=== PATIENT | female | born 1970 | race Caucasian/White ===

== ENCOUNTER 2022-04-07 16:10 | Emergency (ER) | payer MEDICARE ==
[2022-04-07 18:08] VITALS: RESP 18
--- NOTE | 2022-04-07 18:26 | XR ---
EXAMINATION TYPE: XR abdomen 2V DATE OF EXAM: 04/07/2022 6:20 PM CLINICAL HISTORY: Constipation TECHNIQUE: Upright frontal view of the abdomen and 2 supine views of the abdomen. COMPARISON: None. FINDINGS: Scattered gas is seen in non-distended small bowel loops. Gas and fecal material is seen in non-distended colon. Moderate amount of retained stool throughout the colon. There is no visceromega ly, pneumoperitoneum, or abnormal calcification appreciated. The lung bases are clear and the osseous structures are intact. IMPRESSION: 1. Overall nonobstructive bowel gas pattern. 2. Moderate amount of retained stool throughout the colon.
[2022-04-07 18:29] LABS: Appearance,Urine Cloudy (Clear); Bacteria,Urine Rare /hpf; Bilirubin,Urine Negative (Negative); Blood,Urine Negative (Negative); Color,Urine Yellow; Glucose,Urine (UA) Negative (Negative); Ketones,Urine Negative (Negative); Leukocyte Esterase,Urine Trace (Negative); Mucus,Urine Rare /hpf; Nitrite,Urine Negative (Negative); PH, Urine 5.5 (5.0-8.0); Protein,Urine Trace (Negative); RBC,Urine 5 /hpf (0-5); Specific Gravity,Urine 1.014 (1.001-1.035); Squamous Epithelial Cell,Urine 11 /hpf (0-4); Urobilinogen,Urine <2.0 mg/dL (<2.0); WBC,Urine 4 /hpf (0-5)
[2022-04-07] MEDS ORDERED: DOCUSATE 100 MG CAP PO STA (18:58)
[2022-04-07] MEDS ORDERED: MAGNESIUM CITRATE 296 ML BOTTLE PO ONE (18:58)
--- NOTE | 2022-04-07 22:18 | ED ---
Abdominal Pain HPI - General Chief Complaint: Abdominal Pain Stated Complaint: GI issue/Abd Pain Time Seen by Provider: 04/07/22 18:41 Source: patient Mode of arrival: ambulatory Limitations: no limitations - History of Present Illness Initial Comments: This 52-year-old female presents with a complaint of constipation. She states that she feels as though her abdomen is bloated. She has occasional twinges of pain but none currently. She states that she is only passed "small belinda". She does relate a history of constipation as well. She denies any nausea, vomiting, or known definitive fevers or chills. She has tried multiple medications at home including a fleets enema, a Fleet suppository, an unknown laxative, and some unknown liquid. She states that she has not had a bowel movement that was normal for approximately 10 days. Other complaints or modifying factors. - Related Data Home Medications Medication Instructions Recorded Confirmed Albuterol Sulfate [Ventolin HFA] 2 puff INHALATION RT-Q6H PRN 04/07/22 04/07/22 Budesonide/Formoterol Fumarate 2 puff INHALATION RT-BID PRN 04/07/22 04/07/22 [Symbicort 160-4.5 Mcg Inhaler] Furosemide [Lasix] 40 mg PO DAILY PRN 04/07/22 04/07/22 HYDROcodone/APAP 5-325MG [Lynn 1 tab PO TID 04/07/22 04/07/22 5-325] Metoprolol Tartrate [Lopressor] 12.5 mg PO BID 04/07/22 04/07/22 Potassium Chloride ER [K-Dur 10] 10 meq PO DAILY PRN 04/07/22 04/07/22 QUEtiapine [SEROquel] 300 mg PO HS 04/07/22 04/07/22 Zolpidem Tartrate [Ambien] 5 mg PO HS PRN 04/07/22 04/07/22 diazePAM [Valium] 5 mg PO BID PRN 04/07/22 04/07/22 Allergies Allergy/AdvReac Type Severity Reaction Status Date / Time No Known Allergies Allergy Verified 04/07/22 22:07 Review of Systems ROS Statement: Those systems with pertinent positive or pertinent negative responses have been documented in the HPI. ROS Other: All systems not noted in ROS Statement are negative. Past Medical History Past Medical History: Hypertension Additional Past Medical History / Comment(s): back pain History of Any Multi-Drug Resistant Organisms: None Reported Past Psychological History: Anxiety, Bipolar Smoking Status: Current every day smoker Past Alcohol Use History: Occasional Past Drug Use History: None Reported General Exam - General Exam Comments Initial Comments: GENERAL: The patient is well nourished and well hydrated. VITAL SIGNS: Heart rate, blood pressure, respiratory rate reviewed as recorded in nurse's notes. EYES: Pupils are round and reactive. Extraocular movements are intact. No conjunctival / lid redness or swelling. ENT: No external evidence of injury, swelling, or ecchymosis. Airway is patent. Throat is clear. NECK: Nontender. No swelling or evidence of injury. No subcutaneous emphysema. Trachea is midline. No thyroid mass. HEART: Regular rate and rhythm. Good peripheral pulses. LUNGS/CHEST: Breath sounds clear and equal bilaterally. No rales, rhonchi, or wheezes. No ecchymosis, subcutaneous emphysema, or tenderness. ABDOMEN: Abdomen soft without tenderness. No palpable masses or organomegaly. No peritoneal signs. No abdominal wall swelling or ecchymosis. Possible mild distention noted. EXTREMITIES: No extremity tenderness. Normal muscle tone and function. No thoracolumbar tenderness. NEUROLOGIC: Sensation is grossly intact. Cranial nerve exam reveals face is symmetrical, tongue is midline, speech is clear. SKIN: No abrasions or ecchymosis is noted. No induration or masses noted. PSYCHIATRIC: Alert and oriented. Appropriate behavior and judgment. Limitations: no limitations Course Vital Signs 04/07/22 04/07/22 18:04 20:23 Temperature 98 F Pulse Rate 103 H 98 Respiratory 18 18 Rate Blood Pressure 141/61 145/83 O2 Sat by Pulse 95 97 Oximetry Medical Decision Making - Medical Decision Making The patient was seen and examined. An x-ray was taken of the abdomen and this does show some moderate constipation but no other acute process. She receives a milk of molasses enema, magnesium citrate, and Colace. She states that she did pass a small bowel movement. She states that she still does feel constipated. She is offered another enema versus discharge and should is okay with discharge. It is felt as though she would benefit from utilizing Metamucil and MiraLAX at home. She is instructed that she may take the MiraLAX up to 4 times per day and this likely will help with her bowel movement. It is felt as though she is stable for discharge. GI follow-up will also be given. Return parameters discussed. - Lab Data Lab Results 04/07/22 Range/Units 18:17 Urine Color Yellow Urine Appearance Cloudy H (Clear) Urine pH 5.5 (5.0-8.0) Ur Specific [place] 1.014 (1.001-1.035) Urine Protein Trace H (Negative) Urine Glucose (UA) Negative (Negative) Urine Ketones Negative (Negative) Urine Blood Negative (Negative) Urine Nitrite Negative (Negative) Urine Bilirubin Negative (Negative) Urine Urobilinogen <2.0 (<2.0) mg/dL Ur Leukocyte Esterase Trace H (Negative) Urine RBC 5 (0-5) /hpf Urine WBC 4 (0-5) /hpf Ur Squamous Epith Cells 11 H (0-4) /hpf Urine Bacteria Rare H (None) /hpf Urine Mucus Rare H (None) /hpf Disposition Clinical Impression: Constipation Disposition: HOME SELF-CARE Condition: Good Instructions (If sedation given, give patient instructions): Constipation (ED) Additional Instructions: Please use MiraLAX up to 4 times per day as well as Metamucil for constipation. Is patient prescribed a controlled substance at d/c from ED?: No Referrals: Jaime Gar MD [Primary Care Provider] - 1-2 days Sammie Palmer MD [STAFF PHYSICIAN] - As Soon As Possible Time of Disposition: 22:24
[2022-04-07 22:38] VITALS: BP 118/69; PULSE 86; TEMP 97.8
== END 2022-04-07 22:52 | disposition home or self-care (01) ==
LOC: EC 16:10
DX: K59.00 Constipation, unspecified (principal); I10 Essential (primary) hypertension; F31.9 Bipolar disorder, unspecified; F41.9 Anxiety disorder, unspecified; F17.200 Nicotine dependence, unspecified, uncomplicated; Z79.899 Other long term (current) drug therapy
CPT/HCPCS: 74019; 81001; 99284

== ENCOUNTER 2023-12-29 06:30 | Day surgery (SDC) | payer MEDICARE ==
[~2023-12-29 06:30] MED LIST: LIDOCAINE 1% (10MG/ML) FOR IV START INTRADERMA PRN
[2023-12-29] MEDS: LACTATED RINGERS 1,000 ML IV SCH (07:05)
[2023-12-29] MEDS: MIDAZOLAM 2 MG/2 ML VIAL IVP ONE (07:10)
[2023-12-29] MEDS ORDERED: PROPOFOL 10 MG/ML 20 ML VIAL IV ONE (07:20)
[2023-12-29] MEDS ORDERED: fentaNYL (PF) 50 MCG/ML 2 ML AMP ONE (07:20)
[2023-12-29] MEDS ORDERED: LIDOCAINE 1% INJ 10MG/ML (20 ML MDV) ONE (07:20)
[2023-12-29 07:22] VITALS: TEMP 97.5
--- NOTE | 2023-12-29 07:43 | P.PCN ---
Date of Procedure: 12/29/23 Procedure(s) Performed: Brief history: Patient is a pleasant 53-year-old white female scheduled for an elective upper endoscopy as well as colonoscopy as a part of evaluation of GERD/left lower quadrant abdominal pain with alternating diarrhea and constipation for the last 1 year duration Procedure performed: Esophagogastroduodenoscopy with biopsy Colonoscopy with biopsy Preoperative diagnosis: GERD Left lower quadrant abdominal pain with alternating diarrhea and constipation of 1 year duration Anesthesia: [facility] [place] Procedure: After informed consent was obtained from the patient was brought into the endoscopy unit and IV sedation was administered by anesthesia under continuous monitoring. Initially upper endoscopy was done. The Olympus GF 160 video endoscope was inserted inserted into the mouth and esophagus intubated without any difficulty and was gradually advanced into the stomach and duodenum and carefully examined. The bulb and second part of the duodenum appeared normal. Biopsies were done from the duodenum to rule out celiac disease. The scope was then withdrawn into the stomach adequately insufflated with air and upon careful examination the antrum had mild gastritis and biopsies were done from this area. Mucosa of the body, cardia and fundus appeared normal. The scope was then withdrawn into the esophagus. The GE junction was located at 40 cm to the incisors. Small hiatal hernia noted. It appeared regular with 2 superficial erosions consistent with LA grade B reflux esophagitis. Rest of the esophagus appeared normal. Patient tolerated the procedure well. At this time the patient continued to remain sedation. Initial digital rectal examination was normal. Olympus CF 160 video colonoscope was then inserted into the rectum and gradually advanced to the cecum without any difficulty. Careful examination was performed as the scope was gradually being withdrawn. The prep was excellent. The cecum, ascending colon, transverse colon, descending colon, sigmoid colon and rectum appeared normal. random biopsies were done from ascending and descending colon to rule out microscopic/collagenous colitis Retroflexion was performed in the rectum and no lesions were noted. Patient tolerated the procedure well. Impression: 1. Upper endoscopy revealed mild antral gastritis, small hiatal hernia and LA grade B esophagitis 2. Colonoscopy was within normal limits with no evidence of colorectal neoplasia Recommendations: Findings of this examination were discussed with the patient as well saba family. She was advised to follow with the biopsy results. Recommend repeat screening colonoscopy in 10 years.
[2023-12-29 08:32] VITALS: BP 134/84; PULSE 83; RESP 15
== END 2023-12-29 08:27 | disposition home or self-care (01) ==
LOC: ORWHC2ENDO 06:30
PROVIDERS: ATTEND Internal Medicine Gastroenterology
DX: D72.820 Lymphocytosis (symptomatic) (principal); K29.50 Unspecified chronic gastritis without bleeding; K44.9 Diaphragmatic hernia without obstruction or gangrene; K21.00 Gastro-esophageal reflux disease with esophagitis, without bleeding; K31.89 Other diseases of stomach and duodenum; I10 Essential (primary) hypertension; J44.9 Chronic obstructive pulmonary disease, unspecified; F17.200 Nicotine dependence, unspecified, uncomplicated; F41.9 Anxiety disorder, unspecified; M79.7 Fibromyalgia; Z98.890 Other specified postprocedural states; Z79.899 Other long term (current) drug therapy
CPT/HCPCS: 88305; 45380; 43239; J2250; J2001; J3010; J2704

== ENCOUNTER 2024-07-17 21:32 | Inpatient (IN) | payer MEDICARE, OTHER ==
--- NOTE | 2024-07-17 22:31 | ED ---
SOB HPI - General Chief Complaint: Shortness of Breath Stated Complaint: Difficulty Breathing Time Seen by Provider: 07/17/24 21:39 Source: patient, RN notes reviewed, old records reviewed Mode of arrival: ambulatory Limitations: no limitations - History of Present Illness Initial Comments: This is a 54-year-old female presenting with multiple complaints today. She states she has a fever and feels unwell, she has burning with urination with cough and congestion she describes as bronchitis but worsening shortness of breath. History of COPD. No known recent sick contacts or travel history no recent hospitalizations MD Complaint: shortness of breath, cough, anxiety -: days(s) Severity: moderate Severity scale (1-10): 6 Quality: throbbing, sharp Improves With: nothing Known History Of: COPD, asthma Context: recent URI, recent illness, other (Believes she has urinary tract infection) Associated Symptoms: fever, cough, sputum production Treatments Prior to Arrival: none - Related Data Home Medications Medication Instructions Recorded Confirmed QUEtiapine [SEROquel] 300 mg PO HS 04/07/22 07/18/24 Zolpidem Tartrate [Ambien] 5 mg PO HS 04/07/22 07/18/24 diazePAM [Valium] 10 mg PO BID PRN 04/07/22 07/18/24 HYDROcodone/APAP 7.5-325MG [[place] 1 tab PO Q8H PRN 12/25/23 07/18/24 7.5-325] Omeprazole [PriLOSEC] 20 mg PO AC-LUNCH 07/18/24 07/18/24 Previous Rx's Medication Instructions Recorded Albuterol Inhaler [Ventolin Hfa 2 puff INHALATION RT-QID #1 each 07/30/24 Inhaler] Aspirin 81 mg PO DAILY #30 tab 07/30/24 Atorvastatin [Lipitor] 40 mg PO HS #30 tab 07/30/24 predniSONE 20 mg PO DAILY #10 tab 07/30/24 Allergies Allergy/AdvReac Type Severity Reaction Status Date / Time No Known Allergies Allergy Verified 07/18/24 06:58 Review of Systems ROS Statement: Those systems with pertinent positive or pertinent negative responses have been documented in the HPI. ROS Other: All systems not noted in ROS Statement are negative. Past Medical History Past Medical History: COPD, Fibromyalgia, Hypertension Additional Past Medical History / Comment(s): back pain. INCISIONAL HERNIA x2. RT KNEE INJURY-WEARS A BRACE History of Any Multi-Drug Resistant Organisms: None Reported Past Surgical History: Breast Surgery, Hernia Repair, Hysterectomy, Tonsillectomy Additional Past Surgical History / Comment(s): BILAT BREAST IMPLANTS incisional hernia repair with fatty mass from abdomen and leg Past Anesthesia/Blood Transfusion Reactions: Family History of Problems w/ Anesthesia Additional Past Anesthesia/Blood Transfusion Reaction / Comment(s): MOTHER AND BROTHER HAD HARD TIME BREATHING POST SURGERIES Past Psychological History: Anxiety, Bipolar Smoking Status: Current every day smoker Past Alcohol Use History: Occasional Past Drug Use History: None Reported - Past Family History Mother Family Medical History: Cancer General Exam Limitations: no limitations General appearance: alert, anxious, in distress Head exam: Present: atraumatic, normocephalic, normal inspection Eye exam: Present: normal appearance, PERRL, EOMI. Absent: scleral icterus, conjunctival injection, periorbital swelling ENT exam: Present: normal exam, mucous membranes moist Neck exam: Present: normal inspection. Absent: tenderness, meningismus, lymphadenopathy Respiratory exam: Present: respiratory distress, accessory muscle use, decreased breath sounds, prolonged expiratory. Absent: rales, rhonchi, stridor Cardiovascular Exam: Present: normal rhythm, tachycardia, normal heart sounds. Absent: systolic murmur, diastolic murmur, rubs, gallop, clicks GI/Abdominal exam: Present: soft, normal bowel sounds. Absent: distended, tenderness, guarding, rebound, rigid Extremities exam: Present: normal inspection, full ROM, normal capillary refill. Absent: tenderness, pedal edema, joint swelling, calf tenderness Back exam: Present: normal inspection Neurological exam: Present: alert, oriented X3, CN II-XII intact Psychiatric exam: Present: normal affect, normal mood Skin exam: Present: warm, dry, intact, normal color. Absent: rash Course Vital Signs 07/17/24 07/17/24 07/17/24 21:34 22:40 23:22 Temperature 102.4 F H 101.9 F H Pulse Rate 114 H 115 H Respiratory 24 20 22 Rate Blood Pressure 116/73 126/71 O2 Sat by Pulse 92 L 96 Oximetry 07/17/24 07/18/24 07/18/24 23:52 00:01 00:44 Temperature 99.1 F Pulse Rate 106 H 109 H 74 Respiratory 18 18 20 Rate Blood Pressure O2 Sat by Pulse 94 L Oximetry 07/18/24 07/18/24 07/18/24 01:28 01:29 05:11 Temperature 97.2 F L Pulse Rate 101 H 74 Respiratory 18 14 Rate Blood Pressure 119/70 123/79 O2 Sat by Pulse 87 L 96 91 L Oximetry 07/18/24 07/18/24 07/18/24 09:03 10:38 12:30 Temperature 97.4 F L 98.0 F Pulse Rate 68 64 70 Respiratory 18 18 16 Rate Blood Pressure 134/82 143/85 130/84 O2 Sat by Pulse 91 L 96 95 Oximetry 07/18/24 07/18/24 07/18/24 13:10 14:29 16:00 Temperature Pulse Rate 71 71 70 Respiratory 18 18 18 Rate Blood Pressure 130/84 131/89 O2 Sat by Pulse 96 94 L 97 Oximetry 07/18/24 07/18/24 07/18/24 18:00 18:35 20:24 Temperature 97.8 F Pulse Rate 62 56 L 60 Respiratory 18 18 18 Rate Blood Pressure 134/84 134/84 O2 Sat by Pulse 96 97 Oximetry 07/19/24 07/19/24 07/19/24 00:33 02:31 03:13 Temperature Pulse Rate 57 L 65 50 L Respiratory 18 18 18 Rate Blood Pressure 122/72 122/71 122/68 O2 Sat by Pulse 98 97 96 Oximetry - Reevaluation(s) Reevaluation #1: 07/17/24 22:36 Medical records reviewed Reevaluation #2: 07/18/24 01:25 Mild improvement here in the ER Reevaluation #3: 07/18/24 01:25 Patient informed of results and questions answered Reevaluation #4: Was pt. sent in by a medical professional or institution (, PA, TRAVELING CONSTRUCTION SUPERINTENDENT, urgent care, hospital, or group home...) When possible be specific @ -no Did you speak to anyone other than the patient for history (EMS, parent, family, police, friend...)? What history was obtained from this source @ -no Did you review nursing and triage notes (agree or disagree)? Why? @ -agree Are old charts reviewed (outside hosp., previous admission, EMS record, old EKG, old radiological studies, urgent care reports/EKG's, group home records)? Report findings @ -yes Differential Diagnosis (chest pain, altered mental status, abdominal pain women, abdominal pain men, vaginal bleeding, weakness, fever, dyspnea, syncope, headache, dizziness, GI bleed, back pain, seizure, CVA, palpatations, mental hea lth, musculoskeletal)? @ -prior EKG interpreted by me (3pts min.). @ -yes X-rays interpreted by me (1pt min.). @ -yes negative for acute disease CT interpreted by me (1pt min.). @ -no U/S interpreted by me (1pt. min.). @ -no What testing was considered but not performed or refused? (CT, X-rays, U/S, labs)? Why? @ -none What meds were considered but not given or refused? Why? @ -none Did you discuss the management of the patient with other professionals (professionals i.e. , PA, TRAVELING CONSTRUCTION SUPERINTENDENT, lab, RT, psych nurse, addiction social worker, inside solar sales consultant, teacher, aviation tactical readiness officer, correctional case records supervisor)? Give summary @ -no Was smoking cessation discussed for >3mins.? @ -no Was critical care preformed (if so, how long)? @ -yes31 Were there social determinants of health that impacted care today? How? (Homelessness, low income, unemployed, alcoholism, drug addiction, transportation, low edu. Level, literacy, decrease access to med. care, senior living, rehab)? @ -none Was there de-escalation of care discussed even if they declined (Discuss DNR or withdrawal of care, Hospice)? DNR status @ -no What co-morbidities impacted this encounter? (DM, HTN, Smoking, COPD, CAD, Cancer, CVA, ARF, Chemo, Hep., AIDS, mental health diagnosis, sleep apnea, morbid obesity)? @ -none Was patient admitted / discharged? Hospital course, mention meds given and route, prescriptions, significant lab abnormalities, going to OR and other pertinent info. @ - 54 female with severe respiratory distress will admit to the ICU for significant supportive care secondary to respiratory failure Admitted respiratory failure respiratory Undiagnosed new problem with uncertain prognosis? @ -no Drug Therapy requiring intensive monitoring for toxicity (Heparin, Nitro, Insulin, Cardizem)? @ -no Were any procedures done? @ -no Diagnosis/symptom? @ -Respiratory failure COPD and hypoxia Acute, or Chronic, or Acute on Chronic? @ -Acute Uncomplicated (without systemic symptoms) or Complicated (systemic symptoms)? @ -Complicated Side effects of treatment? @ -no Exacerbation, Progression, or Severe Exacerbation? @ -exacerbation Poses a threat to life or bodily function? How? (Chest pain, [place], [place], pneumonia, PE, COPD, DKA, ARF, appy, cholecystitis, CVA, Diverticulitis, Homicidal, Suicidal, threat to staff... and all critical care pts) @ -yes respiratory failure Reevaluation #5: Differential Fever: Pneumonia, viral URI, endocarditis, myocarditis, pericarditis, otitis, sinusitis, peritonsillar Abscess, retropharyngeal Abscess, epiglottitis, peritonitis, appendicitis, Hien cystitis, diverticulitis, hepatitis, colitis, UTI, PID, TOA, pyelonephritis, prostatitis, epididymitis, meningitis, encephalitis, pulmonary embolism, CVA, thyroid storm, pancreatitis, adrenal crisis, cavernous sinus thrombosis, this is not meant to be an all-inclusive list. Differential Dyspnea: Coronary syndrome, arrhythmia, tamponade, asthma, COPD, pulmonary embolism, pneumonia, pneumothorax, pulmonary effusion, anaphylaxis, diabetic ketoacidosis, flailed chest, pulmonary contusion, diaphragmatic rupture, anemia, neuromuscu lar, this is not meant to be an all-inclusive list. - Consultations Consultation #1: spoke w Dr. Gar who agrees to admit this patient Medical Decision Making - Medical Decision Making 54 female with severe respiratory distress will admit to the ICU for significant supportive care secondary to respiratory failure - Lab Data Result diagrams: 07/29/24 05:37 07/29/24 05:33 Lab Results 07/17/24 07/17/24 07/17/24 Range/Units 22:22 22:22 22:22 WBC 6.2 (3.8-10.6) k/uL RBC 3.43 L (3.80-5.40) m/uL Hgb 13.3 (11.4-16.0) gm/dL Hct 38.5 (34.0-46.0) % MCV 112.3 H (80.0-100.0) fL MCH 38.8 H (25.0-35.0) pg MCHC 34.6 (31.0-37.0) g/dL RDW 13.5 (11.5-15.5) % Plt Count 166 (150-450) k/uL MPV 8.7 Neutrophils % 81 % Lymphocytes % 10 % Monocytes % 6 % Eosinophils % 1 % Basophils % 1 % Neutrophils # 5.1 (1.3-7.7) k/uL Lymphocytes # 0.6 L (1.0-4.8) k/uL Monocytes # 0.4 (0-1.0) k/uL Eosinophils # 0.1 (0-0.7) k/uL Basophils # 0.0 (0-0.2) k/uL Manual Slide Review Performed Macrocytosis Marked A PT 10.5 (10.0-12.5) sec INR 0.9 (<1.2) APTT 26.7 (22.0-30.0) sec Sodium 135 L (137-145) mmol/L Potassium 4.0 (3.5-5.1) mmol/L Chloride 104 (98-107) mmol/L Carbon Dioxide 24 (22-30) mmol/L Anion Gap 7 mmol/L BUN 12 (7-17) mg/dL Creatinine 0.70 (0.52-1.04) mg/dL Est GFR (CKD-EPI)AfAm >90 (>60 ml/min/1.73 sqM) Est GFR (CKD-EPI)NonAf >90 (>60 ml/min/1.73 sqM) Glucose 120 H (74-99) mg/dL Plasma Lactic Acid [place] (0.7-2.0) mmol/L Calcium 9.9 (8.4-10.2) mg/dL Magnesium 1.4 L (1.6-2.3) mg/dL Total Bilirubin 0.7 (0.2-1.3) mg/dL AST 121 H (14-36) U/L ALT 51 H (4-34) U/L Alkaline Phosphatase 93 (38-126) U/L Troponin I (0.000-0.034) ng/mL NT-Pro-B Natriuret Pep 734 pg/mL Total Protein 6.7 (6.3-8.2) g/dL Albumin 4.3 (3.5-5.0) g/dL Urine Color Urine Appearance (Clear) Urine pH (5.0-8.0) Ur Specific [place] (1.001-1.035) Urine Protein (Negative) Urine Glucose (UA) (Negative) Urine Ketones (Negative) Urine Blood (Negative) Urine Nitrite (Negative) Urine Bilirubin (Negative) Urine Urobilinogen (<2.0) mg/dL Ur Leukocyte Esterase (Negative) Urine RBC (0-5) /hpf Urine WBC (0-5) /hpf Ur Squamous Epith Cells (0-4) /hpf Urine Bacteria (None) /hpf Urine Mucus (None) /hpf Influenza Type A (PCR) (Not Detectd) Influenza Type B (PCR) (Not Detectd) RSV (PCR) (Not Detectd) SARS-CoV-2 (PCR) (Not Detectd) 07/17/24 07/17/24 07/17/24 Range/Units 22:22 22:22 22:22 WBC (3.8-10.6) k/uL RBC (3.80-5.40) m/uL Hgb (11.4-16.0) gm/dL Hct (34.0-46.0) % MCV (80.0-100.0) fL MCH (25.0-35.0) pg MCHC (31.0-37.0) g/dL RDW (11.5-15.5) % Plt Count (150-450) k/uL MPV Neutrophils % % Lymphocytes % % Monocytes % % Eosinophils % % Basophils % % Neutrophils # (1.3-7.7) k/uL Lymphocytes # (1.0-4.8) k/uL Monocytes # (0-1.0) k/uL Eosinophils # (0-0.7) k/uL Basophils # (0-0.2) k/uL Manual Slide Review Macrocytosis PT (10.0-12.5) sec INR (<1.2) APTT (22.0-30.0) sec Sodium (137-145) mmol/L Potassium (3.5-5.1) mmol/L Chloride (98-107) mmol/L Carbon Dioxide (22-30) mmol/L Anion Gap mmol/L BUN (7-17) mg/dL Creatinine (0.52-1.04) mg/dL Est GFR (CKD-EPI)AfAm (>60 ml/min/1.73 sqM) Est GFR (CKD-EPI)NonAf (>60 ml/min/1.73 sqM) Glucose (74-99) mg/dL Plasma Lactic Acid [place] 0.9 (0.7-2.0) mmol/L Calcium (8.4-10.2) mg/dL Magnesium (1.6-2.3) mg/dL Total Bilirubin (0.2-1.3) mg/dL AST (14-36) U/L ALT (4-34) U/L Alkaline Phosphatase (38-126) U/L Troponin I <0.012 (0.000-0.034) ng/mL NT-Pro-B Natriuret Pep pg/mL Total Protein (6.3-8.2) g/dL Albumin (3.5-5.0) g/dL Urine Color Urine Appearance (Clear) Urine pH (5.0-8.0) Ur Specific [place] (1.001-1.035) Urine Protein (Negative) Urine Glucose (UA) (Negative) Urine Ketones (Negative) Urine Blood (Negative) Urine Nitrite (Negative) Urine Bilirubin (Negative) Urine Urobilinogen (<2.0) mg/dL Ur Leukocyte Esterase (Negative) Urine RBC (0-5) /hpf Urine WBC (0-5) /hpf Ur Squamous Epith Cells (0-4) /hpf Urine Bacteria (None) /hpf Urine Mucus (None) /hpf Influenza Type A (PCR) Not Detected (Not Detectd) Influenza Type B (PCR) Not Detected (Not Detectd) RSV (PCR) Not Detected (Not Detectd) SARS-CoV-2 (PCR) Detected A (Not Detectd) 07/18/24 Range/Units 00:52 WBC (3.8-10.6) k/uL RBC (3.80-5.40) m/uL Hgb (11.4-16.0) gm/dL Hct (34.0-46.0) % MCV (80.0-100.0) fL MCH (25.0-35.0) pg MCHC (31.0-37.0) g/dL RDW (11.5-15.5) % Plt Count (150-450) k/uL MPV Neutrophils % % Lymphocytes % % Monocytes % % Eosinophils % % Basophils % % Neutrophils # (1.3-7.7) k/uL Lymphocytes # (1.0-4.8) k/uL Monocytes # (0-1.0) k/uL Eosinophils # (0-0.7) k/uL Basophils # (0-0.2) k/uL Manual Slide Review Macrocytosis PT (10.0-12.5) sec INR (<1.2) APTT (22.0-30.0) sec Sodium (137-145) mmol/L Potassium (3.5-5.1) mmol/L Chloride (98-107) mmol/L Carbon Dioxide (22-30) mmol/L Anion Gap mmol/L BUN (7-17) mg/dL Creatinine (0.52-1.04) mg/dL Est GFR (CKD-EPI)AfAm (>60 ml/min/1.73 sqM) Est GFR (CKD-EPI)NonAf (>60 ml/min/1.73 sqM) Glucose (74-99) mg/dL Plasma Lactic Acid [place] (0.7-2.0) mmol/L Calcium (8.4-10.2) mg/dL Magnesium (1.6-2.3) mg/dL Total Bilirubin (0.2-1.3) mg/dL AST (14-36) U/L ALT (4-34) U/L Alkaline Phosphatase (38-126) U/L Troponin I (0.000-0.034) ng/mL NT-Pro-B Natriuret Pep pg/mL Total Protein (6.3-8.2) g/dL Albumin (3.5-5.0) g/dL Urine Color Yellow Urine Appearance Clear (Clear) Urine pH 5.5 (5.0-8.0) Ur Specific [place] 1.016 (1.001-1.035) Urine Protein 1+ H (Negative) Urine Glucose (UA) Negative (Negative) Urine Ketones Trace H (Negative) Urine Blood Small H (Negative) Urine Nitrite Negative (Negative) Urine Bilirubin Negative (Negative) Urine Urobilinogen <2.0 (<2.0) mg/dL Ur Leukocyte Esterase Negative (Negative) Urine RBC 1 (0-5) /hpf Urine WBC 1 (0-5) /hpf Ur Squamous Epith Cells 1 (0-4) /hpf Urine Bacteria Rare H (None) /hpf Urine Mucus Occasional H (None) /hpf Influenza Type A (PCR) (Not Detectd) Influenza Type B (PCR) (Not Detectd) RSV (PCR) (Not Detectd) SARS-CoV-2 (PCR) (Not Detectd) - EKG Data -: EKG Interpreted by Me (EKG is sinus tachycardia 108 NM 123 QRS 85 QTc 384) - Radiology Data Radiology results: report reviewed (Chest x-ray is negative for acute disease), image reviewed Critical Care Time Critical Care Time: Yes Total Critical Care Time: 31 Critical Care Time: 31 Disposition Clinical Impression: Acute exacerbation of chronic obstructive pulmonary disease, Coronavirus infection, Fever, Bronchitis Disposition: ADMITTED IP TO THIS HOSP Condition: Fair Is patient prescribed a controlled substance at d/c from ED?: No Time of Disposition: 01:00
[2024-07-17 23:22] LABS: Basophils % (A) 1 %; Eosinophils # (A) 0.1 k/uL (0-0.7); Eosinophils % (A) 1 %; HCT 38.5 % (34.0-46.0); HGB 13.3 gm/dL (11.4-16.0); Lymphocytes # (A) 0.6 k/uL (1.0-4.8); Lymphocytes % (A) 10 %; MCH 38.8 pg (25.0-35.0); MCHC 34.6 g/dL (31.0-37.0); MCV 112.3 fL (80.0-100.0); Macrocytosis Marked; Mean Platelet Volume 8.7; Monocytes # (A) 0.4 k/uL (0-1.0); Monocytes % (A) 6 %; Neutrophils # (A) 5.1 k/uL (1.3-7.7); Neutrophils % (A) 81 %; Platelet Count 166 k/uL (150-450); RBC 3.43 m/uL (3.80-5.40); RDW 13.5 % (11.5-15.5); WBC 6.2 k/uL (3.8-10.6)
[2024-07-17] MEDS: SODIUM CHLORIDE 0.9% 1,000 ML IV STA (23:24)
[2024-07-17] MEDS: IBUPROFEN 800 MG TAB PO STA (23:24)
[2024-07-17] MEDS: ACETAMINOPHEN TAB 500 MG TAB PO STA (23:25)
[2024-07-17] MEDS: methylPREDNISolone SOD SUCCI 125 MG/2 ML VIAL IV STA (23:28)
[2024-07-17 23:30] LABS: INR 0.9 (<1.2); Partial Thromboplastin Time 26.7 sec (22.0-30.0); Prothrombin Time 10.5 sec (10.0-12.5)
[2024-07-17 23:31] LABS: ALT 51 U/L (4-34); AST 121 U/L (14-36); African American GFR (CKD) >90 (>60 ml/min/1.73 sqM); Albumin 4.3 g/dL (3.5-5.0); Alkaline Phosphatase 93 U/L (38-126); Anion Gap 7 mmol/L; Blood Urea Nitrogen 12 mg/dL (7-17); Calcium 9.9 mg/dL (8.4-10.2); Carbon Dioxide 24 mmol/L (22-30); Chloride 104 mmol/L (98-107); Glucose 120 mg/dL (74-99); Magnesium 1.4 mg/dL (1.6-2.3); Non-African American GFR(CKD) >90 (>60 ml/min/1.73 sqM); Sodium 135 mmol/L (137-145); Total Bilirubin 0.7 mg/dL (0.2-1.3); Total Protein 6.7 g/dL (6.3-8.2)
[2024-07-17 23:40] LABS: NT-Pro-B-Type Natriuretic Pept 734 pg/mL
[2024-07-17] MEDS: IPRATROPIUM-ALBUTEROL 3 ML NEB INHALATION STA (23:53)
--- NOTE | 2024-07-18 00:34 | XR ---
EXAM: XR Chest, 2 Views CLINICAL HISTORY: ITS.REASON XR Reason: difficulty breathing TECHNIQUE: Frontal and lateral views of the chest. COMPARISON: No relevant prior studies available. FINDINGS: Lungs: No consolidation. No overt edema. Pleural space: No pleural effusion. No pneumothorax. Heart: Unremarkable. No cardiomegaly. Bones/joints: Unremarkable. No fracture or malalignment. IMPRESSION: No acute cardiopulmonary abnormality.
[2024-07-18] MEDS: AZITHROMYCIN 500 MG in SODIUM CHLORIDE 0.9% 250 ML IVPB STA (00:41)
[2024-07-18] MEDS: SODIUM CHLORIDE 0.9% 500 ML 500 ML IV STA (00:41)
[2024-07-18 01:05] LABS: Appearance,Urine Clear (Clear); Bacteria,Urine Rare /hpf; Bilirubin,Urine Negative (Negative); Blood,Urine Small (Negative); Color,Urine Yellow; Glucose,Urine (UA) Negative (Negative); Ketones,Urine Trace (Negative); Leukocyte Esterase,Urine Negative (Negative); Mucus,Urine Occasional /hpf; Nitrite,Urine Negative (Negative); PH, Urine 5.5 (5.0-8.0); Protein,Urine 1+ (Negative); RBC,Urine 1 /hpf (0-5); Specific Gravity,Urine 1.016 (1.001-1.035); Squamous Epithelial Cell,Urine 1 /hpf (0-4); Urobilinogen,Urine <2.0 mg/dL (<2.0); WBC,Urine 1 /hpf (0-5)
[2024-07-18] MEDS ORDERED: NALOXONE 0.4 MG/ML 1 ML VIAL IV PRN (01:23)
[2024-07-18] MEDS ORDERED: IBUPROFEN 400 MG TAB PO PRN (01:23)
[2024-07-18] MEDS: MAGNESIUM OXIDE 400 MG TAB PO STA ×2 (01:25)
[2024-07-18] MEDS: SODIUM CHLORIDE 0.9% 1,000 ML IV STA (01:25)
[2024-07-18] MEDS: SODIUM CHLORIDE 0.9% 1,000 ML IV SCH (01:27)
[2024-07-18] MEDS: DEXAMETHASONE SOD PHOSPHATE 10 MG/ML 1 ML VIAL IVP STA (01:33)
[2024-07-18] MEDS: DEXAMETHASONE SOD PHOSPHATE 4 MG/ML 1 ML VIAL IVP SCH (05:06)
[2024-07-18] MEDS: ALBUTEROL HFA INHALER INHALATION PRN (08:10)
[2024-07-18] MEDS: PANTOPRAZOLE 40 MG TABLET PO SCH (12:30)
[2024-07-18] MEDS: MORPHINE SULFATE 4 MG/ML SYRINGE IV PRN (12:32)
[2024-07-18] MEDS: QUEtiapine 100 MG TAB PO SCH (22:28)
[2024-07-18] MEDS: ZOLPIDEM 5 MG TAB PO SCH (22:29)
[2024-07-19] MEDS: HYDROcodone/APAP 7.5-325MG 1 EACH TAB PO PRN (05:22)
[2024-07-19 08:30] LABS: HGB 12.2 g/dL (12.0-15.0); MCH 39.7 pg (27.0-32.0); MCHC 33.9 g/dL (32.0-37.0); MCV 117.3 FL (80.0-97.0); Mean Platelet Volume 11.2 FL (9.5-12.2); NRBC Per 100 WBC 0.02 X 10*3/uL (0.00-0.01); Platelet Count 180 X 10*3/uL (140-440); RBC 3.07 X 10*6/uL (4.10-5.20); RDW 13.6 % (11.5-14.5)
[2024-07-19 08:46] LABS: ALT 102 U/L (8-44); AST 144 U/L (13-35); Albumin/Globulin Ratio 2.22 Ratio (1.60-3.17); Alkaline Phosphatase 185 U/L (41-126); BUN/Creat Ratio 15.71 Ratio (12.00-20.00); Carbon Dioxide 19.8 mmol/L (21.6-31.8); Chloride 112 mmol/L (96-109); Globulin 1.8 g/dL (1.6-3.3); Glucose 158 mg/dL (70-110); Sodium 142 mmol/L (135-145); Total Bilirubin 0.2 mg/dL (0.3-1.2); Total Protein 5.8 g/dL (6.2-8.2)
[2024-07-19 09:14] LABS: Basophils # (A) 0.02 X 10*3/uL (0.00-0.10); Basophils % (A) 0.2 %; Eosinophils # (A) 0 X 10*3/uL (0.04-0.35); Eosinophils % (A) 0 %; Lymphocytes # (A) 1.49 X 10*3/uL (0.90-5.00); Lymphocytes % (A) 15.5 %; Monocytes # (A) 0.46 X 10*3/uL (0.20-1.00); Monocytes % (A) 4.8 %; Neutrophils # (A) 7.52 X 10*3/uL (1.80-7.70); Neutrophils % (A) 78.4 %
[2024-07-19 09:15] LABS: Macrocytosis (M) 3+
--- NOTE | 2024-07-19 20:13 | HP ---
HISTORY AND PHYSICAL CHIEF COMPLAINT: Fever, chills, cough, shortness of breath. HISTORY OF PRESENT ILLNESS: This is another admission for this 54-year-old female, who presented to the emergency room with fever, chills, cough, and shortness of breath and was diagnosed with bronchitis and COVID as well as COPD. REVIEW OF SYSTEMS: She has not been vomiting. She does have a headache. Past medical history, family history, personal and social histories are all otherwise noncontributory. She is allergic to Abilify. MEDICATIONS: Other medications she is on include, 1. Ambien. 2. Vicodin. 3. Lasix. 4. Seroquel. 5. Omeprazole. 6. Valium. 7. Albuterol. SOCIAL HISTORY: She does smoke heavily. Remainder of her history is unremarkable. PHYSICAL EXAMINATION: VITAL SIGNS: Temperature is 100.6. Her blood pressure is 142/90 with a pulse of 106. GENERAL: She appeared to be acutely ill. SKIN: Hot and dry. HEAD, EARS, EYES, NOSE, MOUTH AND THROAT: Unremarkable. CHEST: Demonstrated decreased breath sounds with wheezing, rales, and rhonchi throughout. CARDIAC: Demonstrates sinus tachycardia. ABDOMEN: Soft. EXTREMITIES: Normal. NEUROLOGICAL: She is intact. ASSESSMENT: She is admitted to the hospital with diagnoses of, 1. Bronchopneumonia. 2. Chronic obstructive pulmonary disease. 3. Coronavirus disease. PLAN: 1. Bedrest. 2. IV fluids. 3. Nebulizers. 4. Antibiotics. PINO / RJ: [id number] /
--- NOTE | 2024-07-19 21:04 | PN ---
PROGRESS NOTE CHIEF COMPLAINT: Upper respiratory infection, bronchitis, pneumonitis and COVID. HISTORY OF PRESENT ILLNESS: This lady is doing a little bit better. She is a little bit less short of breath. PHYSICAL EXAMINATION: VITAL SIGNS: Normal. LUNGS: Breath sounds are diminished with scattered rales and rhonchi throughout with expiratory wheezing. ABDOMEN: Soft, nontender. IMPRESSION: 1. Bronchial pneumonia. 2. Bronchitis. 3. Chronic obstructive pulmonary disease. 4. COVID. PLAN: Continue with current medications and continue to monitor closely. MMODL / IJN: [id number] /
[2024-07-19] MEDS: diazePAM 5 MG TAB PO PRN (23:05)
[2024-07-20] MEDS: lisinopriL 20 MG TAB PO SCH (17:44)
[2024-07-20] MEDS ORDERED: ALBUTEROL NEBULIZED 2.5 MG/3 ML INHALATION SCH (20:00)
[2024-07-20] MEDS: ALBUTEROL HFA INHALER INHALATION SCH (21:22)
[2024-07-21] MEDS: FUROSEMIDE 40 MG TAB PO SCH (09:44)
--- NOTE | 2024-07-21 15:56 | P.CNPUL ---
History of Present Illness Consult date: 07/21/24 Requesting physician: Jaime Gar Reason for consult: dyspnea, hypoxemia Chief complaint: Shortness of breath, cough, congestion History of present illness: This is a 54-year-old female patient with a history of chronic obstructive pulmonary disease, chronic and ongoing tobacco dependence, fibromyalgia, hypertension, bipolar disorder, anxiety who presented here to the emergency room on 07/17/2024 with multiple complaints including burning with urination, cough congestion weakness. Tmax of 102.4. She was found to have a COVID-19 infection. She was found to be hypoxemic. She is on 4 L nasal cannula now. She is febrile. Count 9.6. Hemoglobin 12.2. Platelets 180. D-dimer 1.00. Sodium 142. Potassium 4.0. Bicarb 20. BUN 11. Creatinine 0.7. Glucose 158. AST 144. ALT 102. proBNP 4830. Troponin negative x 1. Procalcitonin negative at 0.20. She is initiated on Decadron and vitamin supplements. She is seen today July 21, 2024 in follow-up after developing increasing shortness of breath. She is maintaining O2 saturations in the 90s on 4 L/min per nasal cannula. Review of Systems REVIEW OF SYSTEMS: CONSTITUTIONAL: Febrile, generalized weakness. Denies any recent significant weight loss or weight gain. EYES: Denies change in vision. EARS, NOSE, MOUTH, THROAT: Denies headaches, denies sore throat. CARDIOVASCULAR: Denies chest pain, palpitations or syncopal episodes. RESPIRATORY: Positive for shortness of breath, cough, congestion no hemoptysis. GASTROINTESTINAL: Denies change in appetite, denies abdominal pain GENITOURINARY: Denies hematuria, denies infections. MUSKULOSKELETAL: Denies pain, denies swelling. INTEGUMENTARY: Denies rash, denies eczema. NEUROLOGICAL: Denies recent memory loss, no recent seizure activity. PSYCHIATRIC: Denies anxiety, denies depression. HEMATOLOGIC/LYMPHATIC: Denies anemia, denies enlarged lymph nodes. Past Medical History Past Medical History: COPD, Fibromyalgia, Hypertension Additional Past Medical History / Comment(s): back pain. INCISIONAL HERNIA x2. RT KNEE INJURY-WEARS A BRACE History of Any Multi-Drug Resistant Organisms: None Reported Past Surgical History: Breast Surgery, Hernia Repair, Hysterectomy, Tonsillectomy Additional Past Surgical History / Comment(s): BILAT BREAST IMPLANTS incisional hernia repair with fatty mass from abdomen and leg Past Anesthesia/Blood Transfusion Reactions: Family History of Problems w/ Anesthesia Additional Past Anesthesia/Blood Transfusion Reaction / Comment(s): MOTHER AND BROTHER HAD HARD TIME BREATHING POST SURGERIES Past Psychological History: Anxiety, Bipolar Smoking Status: Current every day smoker Past Alcohol Use History: Occasional Additional Past Alcohol Use History / Comment(s): SMOKES 1 PPD SINCE AGE 11. drinks 4-7 dronks per week Past Drug Use History: None Reported Additional Drug Use History / Comment(s): USES CBD/THC LOTIONS FOR KNEE PAIN- INSTRUCTED NOT TO USE 24 HOURS PRIOR TO PROCEDURE - Past Family History Mother Family Medical History: Cancer Medications and Allergies Home Medications Medication Instructions Recorded Confirmed Type QUEtiapine [SEROquel] 300 mg PO HS 04/07/22 07/18/24 History Zolpidem Tartrate [Ambien] 5 mg PO HS 04/07/22 07/18/24 History diazePAM [Valium] 10 mg PO BID PRN 04/07/22 07/18/24 History HYDROcodone/APAP 7.5-325MG [[place] 1 tab PO Q8H PRN 12/25/23 07/18/24 History 7.5-325] Dicyclomine [Bentyl] 10 mg PO BID 07/18/24 07/18/24 History Omeprazole [PriLOSEC] 20 mg PO AC-LUNCH 07/18/24 07/18/24 History Allergies Allergy/AdvReac Type Severity Reaction Status Date / Time No Known Allergies Allergy Verified 07/18/24 06:58 Physical Exam Vitals: Vital Signs Temp Pulse Resp BP Pulse Ox 07/21/24 07:34 99.7 F H 60 17 123/72 89 L 07/21/24 01:03 97.8 F 44 L 18 151/79 96 07/20/24 21:44 17 07/20/24 19:25 97.8 F 49 L 18 165/79 96 Intake and Output 07/21/24 07/21/24 07/21/24 06:59 14:59 22:59 Other: Voiding Method Toilet # Voids 4 GENERAL EXAM: Alert, pleasant 54-year-old female, on 4 L nasal cannula, fairly comfortable in no apparent distress. HEAD: Normocephalic. EYES: Normal reaction of pupils, equal size. NOSE: Clear with pink turbinates. THROAT: No erythema or exudates. NECK: No masses, no JVD. CHEST: No chest wall deformity. LUNGS: Equal air entry with no crackles, wheeze, rhonchi or dullness. CVS: S1 and S2 normal with no audible murmur, regular rhythm. ABDOMEN: No hepatosplenomegaly, normal bowel sounds, no guarding or rigidity. SPINE: No scoliosis or deformity SKIN: No rashes CENTRAL NERVOUS SYSTEM: No focal deficits, tone is normal in all 4 extremities. EXTREMITIES: There is no peripheral edema. No clubbing, no cyanosis. Peripheral pulses are intact. Results - Laboratory Findings CBC and BMP: 07/19/24 04:59 07/19/24 04:59 PT/INR, D-dimer PT 10.5 sec (10.0-12.5) 07/17/24 22:22 INR 0.9 (<1.2) 07/17/24 22:22 D-Dimer 1.00 mg/L FEU (<0.60) H 07/21/24 12:48 Abnormal lab findings: Abnormal Labs 07/17/24 07/17/24 07/17/24 22:22 22:22 22:22 RBC 3.43 L Hct MCV 112.3 H MCH 38.8 H Immature Gran # Lymphocytes # 0.6 L Eosinophils # NRBC/100 WBC Diff Macrocytosis Marked A Macrocytosis (manual) D-Dimer Sodium 135 L Chloride Carbon Dioxide Glucose 120 H Magnesium 1.4 L Total Bilirubin AST 121 H ALT 51 H Alkaline Phosphatase Total Protein Urine Protein Urine Ketones Urine Blood Urine Bacteria Urine Mucus SARS-CoV-2 (PCR) Detected A 07/18/24 07/19/24 07/19/24 00:52 04:59 04:59 RBC 3.07 L Hct 36.0 L MCV 117.3 H MCH 39.7 H Immature Gran # 0.11 H Lymphocytes # Eosinophils # 0 L NRBC/100 WBC Diff 0.02 H Macrocytosis Macrocytosis (manual) 3+ A D-Dimer Sodium Chloride 112 H Carbon Dioxide 19.8 L Glucose 158 H Magnesium Total Bilirubin 0.2 L AST 144 H ALT 102 H Alkaline Phosphatase 185 H Total Protein 5.8 L Urine Protein 1+ H Urine Ketones Trace H Urine Blood Small H Urine Bacteria Rare H Urine Mucus Occasional H SARS-CoV-2 (PCR) 07/21/24 12:48 RBC Hct MCV MCH Immature Gran # Lymphocytes # Eosinophils # NRBC/100 WBC Diff Macrocytosis Macrocytosis (manual) D-Dimer 1.00 H Sodium Chloride Carbon Dioxide Glucose Magnesium Total Bilirubin AST ALT Alkaline Phosphatase Total Protein Urine Protein Urine Ketones Urine Blood Urine Bacteria Urine Mucus SARS-CoV-2 (PCR) - Diagnostic Findings Chest x-ray: image reviewed Assessment and Plan Assessment: Acute COVID-19 infection without evidence of COVID-19 pneumonia Acute hypoxemic respiratory failure secondary to above Febrile illness secondary to above Evidence of fluid volume overload with proBNP of 4830 Chronic obstructive pulmonary disease Chronic and ongoing tobacco dependence Fibromyalgia Bipolar disorder Anxiety disorder Plan: The patient was seen and evaluated Chest x-ray, labs and medications reviewed Continue diuretics Continue Decadron, add vitamin supplements Obtain a CT angiogram of the chest to rule out pulmonary embolism Titrate down the FiO2 as tolerated Educated regarding the importance of complete smoking cessation NicoDerm patch will be offered We will continue to follow and make further recommendations based on her clinical status I have personally seen and examined the patient, performed the documentation and the assessment and plan as written. Number of minutes spent on the visit: 20.
--- NOTE | 2024-07-21 16:09 | XR ---
EXAMINATION TYPE: XR chest 1V portable DATE OF EXAM: 07/21/2024 Comparison: 07/17/2024 Clinical History: 54-year-old female SOB, COVID Findings: Heart upper limits of normal in size. Aorta within normal limits. Increased interstitial densities an d mild patchy opacity at the right lower lung. No other consolidation or pleural effusion. Impression: Mild interstitial densities/infiltrates particularly at the right base. Findings may reflect COVID pn eumonia.
--- NOTE | 2024-07-21 16:52 | CT ---
EXAMINATION TYPE: CT angio chest CT DLP: 365.9 mGycm, Automated exposure control for dose reduction was used. DATE OF EXAM: 07/21/2024 4:30 PM COMPARISON: Chest radiograph from same day. CLINICAL INDICATION: Female, 54 years old with history of Hypoxemia, Elevated d dimer, Covid; Hypoxem ia, Elevated d dimer, Covid TECHNIQUE/CONTRAST: CTA scan of the thorax is performed with IV Contrast, patient injected with 65ml mL of Isovue 370, CT P images are created and reviewed these are created on a separate workstation.. FINDINGS: Pulmonary Artery: There is no evidence for a filling defect within the pulmonary vasculature to sugge st acute pulmonary embolism. The pulmonary artery is of normal size. Lungs/Pleura: No evidence of focal consolidation, or pneumothorax. Trace bilateral pleural effusions. Scattered airspace opacities superimposed on centrilobular emphysema. Scattered ground glass opaciti es most pronounced peripherally. Airway: Large airways are patent. Heart: Heart is within normal limits for size. Vasculature: No evidence of aortic aneurysm. Mediastinum: No gross evidence of adenopathy. Musculoskeletal: No acute osseous abnormalities Soft Tissues/lymph nodes: Bilateral breast implants. Lower neck: No significant findings. Upper Abdomen: No significant findings. IMPRESSION: 1. No evidence of pulmonary embolism. 2. Scattered airspace opacities superimposed on COPD correlate for pneumonia. 3. Multifocal groundglass opacities that can be compatible with covid. 4. Small bilateral pleural effusions with associated atelectasis.
[2024-07-21] MEDS: polyethylene glycoL 3350 17 GM POWD.PACK PO SCH (17:19)
[2024-07-21] MEDS: CHOLECALCIFEROL 25 MCG (1000 IU) TABLET PO SCH (17:19)
[2024-07-21] MEDS: ASCORBIC ACID 500 MG TAB PO SCH (17:19)
[2024-07-21] MEDS ORDERED: DEXTROSE 5% IN WATER 50 ML BAG ONE (20:22)
[2024-07-21] MEDS ORDERED: EPINEPHrine 10 ML SYRINGE (0.1 MG/ML) ONE (20:22)
[2024-07-21] MEDS ORDERED: AMIODARONE 50 MG/ML 3 ML VIAL IV ONE (20:22)
[2024-07-21 20:26] LABS: Glucose,Whole Blood 125 mg/dL (70-110)
[2024-07-21] MEDS ORDERED: Magnesium Replacement Protocol 1 EACH MISC MISCELLANE PRN (20:44)
[2024-07-21] MEDS ORDERED: Potassium Replacement Protocol 1 EACH MISC MISCELLANE PRN (20:44)
[2024-07-21 20:53] LABS: Glucose,Whole Blood 240 mg/dL (70-110)
[2024-07-21 21:34] LABS: ABG Base Excess 1.8 mmol/L; ABG HCO3 26 mmol/L (21-25); ABG Oxygen Saturation 95.1 % (94-97); ABG PCO2 37 mmHg (35-45); ABG PH 7.45 (7.35-7.45); ABG PO2 72 mmHg (83-108); ABG TCO2 27 mmol/L (19-24); Allen Test Performed? Yes
--- NOTE | 2024-07-21 21:40 | XR ---
EXAMINATION TYPE: XR chest 1V portable DATE OF EXAM: 07/21/2024 HISTORY: Shortness of breath. COMPARISON: 07/21/2024 TECHNIQUE: Single view of the chest is submitted. FINDINGS: Endotracheal tube and NG tube are appropriately placed. Perihilar infiltrates persist. The heart is stable. Hilar and mediastinal structures are within normal limits. Degenerative changes are seen of the dorsal spine. IMPRESSION: 1. Endotracheal tube and NG tube are appropriately placed. 2. Perihilar infiltrates persist.
[2024-07-21 21:55] LABS: African American GFR (CKD) >90 (>60 ml/min/1.73 sqM); Anion Gap 10 mmol/L; Blood Urea Nitrogen 7 mg/dL (7-17); Calcium 6.7 mg/dL (8.4-10.2); Carbon Dioxide 17 mmol/L (22-30); Chloride 111 mmol/L (98-107); Glucose 162 mg/dL (74-99); Non-African American GFR(CKD) >90 (>60 ml/min/1.73 sqM); Sodium 138 mmol/L (137-145)
[2024-07-21 21:57] LABS: Magnesium 1.4 mg/dL (1.6-2.3)
[2024-07-21 22:01] LABS: Basophils # (A) 0.1 k/uL (0-0.2); Basophils % (A) 1 %; Eosinophils % (A) 0 %; HCT 34.1 % (34.0-46.0); Lymphocytes # (A) 2.3 k/uL (1.0-4.8); Lymphocytes % (A) 22 %; MCH 38.5 pg (25.0-35.0); MCHC 32.4 g/dL (31.0-37.0); Macrocytosis Marked; Mean Platelet Volume 10.4; Monocytes # (A) 0.5 k/uL (0-1.0); Monocytes % (A) 4 %; Neutrophils # (A) 7.7 k/uL (1.3-7.7); Neutrophils % (A) 71 %; Platelet Count 136 k/uL (150-450); RBC 2.86 m/uL (3.80-5.40); RDW 13.4 % (11.5-15.5); WBC 10.8 k/uL (3.8-10.6)
[2024-07-21] MEDS: FUROSEMIDE 10 MG/ML 2 ML VIAL IV ONE (22:01)
[2024-07-21] MEDS: FUROSEMIDE 10 MG/ML 2 ML VIAL IV STA (22:07)
[2024-07-21] MEDS: MIDAZOLAM HCL 50 MG in SODIUM CHLORIDE 0.9% 40 ML IV SCH (22:41)
[2024-07-21 23:23] LABS: Appearance,Urine Clear (Clear); Bilirubin,Urine Negative (Negative); Blood,Urine Trace (Negative); Color,Urine Colorless; Glucose,Urine (UA) Negative (Negative); Ketones,Urine Negative (Negative); Leukocyte Esterase,Urine Negative (Negative); Mucus,Urine Rare /hpf; Nitrite,Urine Negative (Negative); PH, Urine 5.5 (5.0-8.0); Protein,Urine 1+ (Negative); RBC,Urine 1 /hpf (0-5); Urobilinogen,Urine <2.0 mg/dL (<2.0)
[2024-07-21] MEDS: CHLORHEXIDINE GLUCONATE 15 ML CUP MUCOUS MEM SCH (23:27)
[2024-07-21] MEDS: ENOXAPARIN 40 MG/0.4 ML SYRINGE SQ SCH (23:27)
[2024-07-21] MEDS: DEXAMETHASONE SOD PHOSPHATE 10 MG/ML 1 ML VIAL IVP SCH (23:27)
[2024-07-21] MEDS: PANTOPRAZOLE 40 MG/10 ML VIAL IVP SCH (23:28)
[2024-07-21] MEDS: NOREPINEPHRINE 4 MG in SODIUM CHLORIDE 0.9% 250 ML IV SCH (23:28)
[2024-07-22] MEDS ORDERED: POTASSIUM CHLORIDE ER 20 MEQ TAB.ER PO SCH
[2024-07-22] MEDS: MAGNESIUM SULFATE-D5W PMX 1 GM in DEXTROSE/WATER 1 100ML.BAG IVPB SCH (00:10)
[2024-07-22] MEDS: POTASSIUM BICARBONATE/CIT AC 20 MEQ TABLET.EFF NG-TUBE SCH ×4 (00:16→20:53)
--- NOTE | 2024-07-22 02:51 | P.EN ---
CODE BLUE note Activated at 2021 on 07/21. Arrived at the scene shortly after. Discussed the case with the RN and reviewed the chart. The patient who is a 54-year-old female with a PMH of COPD was admitted to the hospital for bronchopneumonia secondary to coronavirus infection. The patient was on 5 L nasal cannula supplemental oxygen resting comfortably in bed speaking to her when she suddenly became unresponsive. The immediately alerted the RN who upon arrival found the patient to be unresponsive and pulseless. CODE BLUE was immediately activated and CPR was initiated. Patient was noted to be in asystole. The patient was subsequently given the first ampoule of epinephrine IV push at 2024 with subsequent pulse and rhythm check showing V-fib for which she was shocked with 120 J. The patient was noted to have spontaneous return of circulation briefly but was again noted to be in V-fib and was shocked with 200 J with subsequent ROSC at 2027. The patient was given a 300 mg amiodarone bolus following her second defibrillation. The patient was intubated by the MINE LABORER. She was taken to the medical ICU. No obvious etiology for the cardiac arrest wa s noted at the time of my evaluation. On physical examination, the patient's pupils were 4 mm and reactive bilaterally. No bilateral lower extremity edema was noted. She had no murmurs on cardiac auscultation with coarse breath sounds bilaterally. Her abdomen was soft but mildly distended. Labs were ordered. EKG was obtained showing a right bundle branch block with no other ST/T wave changes noted as reviewed by me. The case was discussed with the patient's in detail. The primary team and the pci security consultant were notified. Please refer to the code sheet for further details. Total time spent providing critical care for this patient: 50 minutes
[2024-07-22 05:51] LABS: Basophils # (A) 0.1 k/uL (0-0.2); Basophils % (A) 1 %; Eosinophils # (A) 0.1 k/uL (0-0.7); Eosinophils % (A) 1 %; HCT 37.6 % (34.0-46.0); HGB 12.8 gm/dL (11.4-16.0); Lymphocytes # (A) 1.3 k/uL (1.0-4.8); Lymphocytes % (A) 17 %; MCH 38.8 pg (25.0-35.0); MCHC 33.9 g/dL (31.0-37.0); MCV 114.2 fL (80.0-100.0); Mean Platelet Volume 9.6; Monocytes # (A) 0.4 k/uL (0-1.0); Monocytes % (A) 6 %; Neutrophils # (A) 5.6 k/uL (1.3-7.7); Neutrophils % (A) 73 %; Platelet Count 192 k/uL (150-450); RBC 3.29 m/uL (3.80-5.40); RDW 12.9 % (11.5-15.5); WBC 7.7 k/uL (3.8-10.6)
[2024-07-22 05:54] LABS: Macrocytosis Marked
[2024-07-22 06:08] LABS: African American GFR (CKD) >90 (>60 ml/min/1.73 sqM); Anion Gap 8 mmol/L; Blood Urea Nitrogen 9 mg/dL (7-17); Calcium 8.7 mg/dL (8.4-10.2); Carbon Dioxide 30 mmol/L (22-30); Chloride 99 mmol/L (98-107); Glucose 168 mg/dL (74-99); Magnesium 2.6 mg/dL (1.6-2.3); Non-African American GFR(CKD) >90 (>60 ml/min/1.73 sqM); Potassium 3.3 mmol/L (3.5-5.1); Sodium 137 mmol/L (137-145)
[2024-07-22 06:09] LABS: Glucose,Whole Blood 179 mg/dL (70-110)
[2024-07-22 06:10] LABS: ABG Base Excess 10.1 mmol/L; ABG HCO3 32 mmol/L (21-25); ABG Oxygen Saturation 99.1 % (94-97); ABG PCO2 34 mmHg (35-45); ABG PO2 108 mmHg (83-108); ABG TCO2 33 mmol/L (19-24); Allen Test Performed? Yes
[2024-07-22 06:17] LABS: ABG PH 7.59 (7.35-7.45)
--- NOTE | 2024-07-22 07:14 | P.CRDCN ---
History of Present Illness Consult date: 07/22/24 History of present illness: This is a 54-year-old female patient with a past medical history significant for hypertension and COPD who requested to see in the ICU for further evaluation after change in mental status and what it seems to be "asystole" on the floor. The patient currently is intubated on mechanical ventilation and history was taken from the chart. The patient presented and was admitted to the hospital with COVID-related symptoms. Subsequently she was on the floor when she developed change in mental status and "asystole". No further details and no documentation of any asystole at this point. Subsequently the patient was intubated and placed on mechanical ventilation and she was brought to the intensive care unit. There was a concern about pulmonary edema and she was given Lasix. She underwent further evaluation including a chest x-ray which showed pulmonary vascular congestions and NT proBNP came in to be elevated troponin came in to be unremarkable and the rest of the blood work overall came in to be unremarkable including CBC and BMP. The EKG showed sinus mechanism with diffuse nonspecific ST and T wave abnormalities. No history of coronary artery disease or congestive heart failure or cardiac arrhythmia the patient never seen by a business education teacher in the past. She does have hypertension and COPD. The physical examination is remarkable for regular rhythm with a soft systolic murmur at the right upper sternal border with diminished breathing sounds bilaterally and bilateral rhonchi and mild bilateral lower extremities edema noted. Assessment Cardiopulmonary arrest with "asystole" Acute hypoxic respiratory failure Heart failure of unknown etiology at this point Hypertension COPD Plan Acute coronary event was ruled out The EKG showed sinus mechanism with diffuse nonspecific ST and T wave abnormalities Follow-up on the echocardiogram The patient currently is on Lasix Follow-up with the patient Past Medical History Past Medical History: COPD, Fibromyalgia, Hypertension Additional Past Medical History / Comment(s): back pain. INCISIONAL HERNIA x2. RT KNEE INJURY-WEARS A BRACE History of Any Multi-Drug Resistant Organisms: None Reported Past Surgical History: Breast Surgery, Hernia Repair, Hysterectomy, Tonsillectomy Additional Past Surgical History / Comment(s): BILAT BREAST IMPLANTS incisional hernia repair with fatty mass from abdomen and leg Past Anesthesia/Blood Transfusion Reactions: Family History of Problems w/ Anesthesia Additional Past Anesthesia/Blood Transfusion Reaction / Comment(s): MOTHER AND BROTHER HAD HARD TIME BREATHING POST SURGERIES Past Psychological History: Anxiety, Bipolar Smoking Status: Current every day smoker Past Alcohol Use History: Occasional Additional Past Alcohol Use History / Comment(s): SMOKES 1 PPD SINCE AGE 11. drinks 4-7 dronks per week Past Drug Use History: None Reported Additional Drug Use History / Comment(s): USES CBD/THC LOTIONS FOR KNEE PAIN- INSTRUCTED NOT TO USE 24 HOURS PRIOR TO PROCEDURE - Past Family History Mother Family Medical History: Cancer Medications and Allergies Home Medications Medication Instructions Recorded Confirmed Type QUEtiapine [SEROquel] 300 mg PO HS 04/07/22 07/18/24 History Zolpidem Tartrate [Ambien] 5 mg PO HS 04/07/22 07/18/24 History diazePAM [Valium] 10 mg PO BID PRN 04/07/22 07/18/24 History HYDROcodone/APAP 7.5-325MG [[place] 1 tab PO Q8H PRN 12/25/23 07/18/24 History 7.5-325] Dicyclomine [Bentyl] 10 mg PO BID 07/18/24 07/18/24 History Omeprazole [PriLOSEC] 20 mg PO AC-LUNCH 07/18/24 07/18/24 History Allergies Allergy/AdvReac Type Severity Reaction Status Date / Time No Known Allergies Allergy Verified 07/18/24 06:58 Physical Exam Vitals: Vital Signs Temp Pulse Pulse Resp BP BP Pulse Ox 07/22/24 07:00 65 16 128/82 100 07/22/24 06:00 65 20 128/79 100 07/22/24 05:00 84 20 111/78 93 L 07/22/24 04:00 74 20 120/78 100 07/22/24 03:56 07/22/24 03:00 57 L 23 106/68 100 07/22/24 02:00 72 20 87/62 100 07/22/24 01:00 82 20 106/92 100 07/22/24 00:22 80 22 94/64 100 07/22/24 00:18 07/22/24 00:00 98.4 F 66 25 H 95/62 100 07/21/24 23:00 65 24 94/63 98 07/21/24 22:59 07/21/24 22:50 62 21 94/63 99 07/21/24 22:40 60 12 93/63 98 07/21/24 22:30 59 L 14 98/63 98 07/21/24 22:20 57 L 4 L 98/63 97 07/21/24 22:10 56 L 8 L 92/56 96 07/21/24 22:00 55 L 0 L 86/57 98 07/21/24 21:50 52 L 0 L 86/57 97 07/21/24 21:40 52 L 3 L 98/60 96 07/21/24 21:30 54 L 16 91/58 96 07/21/24 21:20 63 26 H 92/58 99 07/21/24 21:10 73 25 H 88/62 87 L 07/21/24 21:00 78 19 84/59 100 07/21/24 20:52 07/21/24 20:50 75 26 H 07/21/24 20:49 98.6 F 72 22 07/21/24 19:57 99.0 F 50 L 18 131/68 98 07/21/24 14:23 98.6 F 53 L 18 146/64 93 L 07/21/24 13:58 98.0 F 92 16 102/53 92 L 07/21/24 07:34 99.7 F H 60 17 123/72 89 L FiO2 07/22/24 07:00 07/22/24 06:00 07/22/24 05:00 07/22/24 04:00 100 07/22/24 03:56 100 07/22/24 03:00 100 07/22/24 02:00 07/22/24 01:00 07/22/24 00:22 07/22/24 00:18 100 07/22/24 00:00 100 07/21/24 23:00 07/21/24 22:59 100 07/21/24 22:50 07/21/24 22:40 07/21/24 22:30 07/21/24 22:20 07/21/24 22:10 07/21/24 22:00 07/21/24 21:50 07/21/24 21:40 07/21/24 21:30 07/21/24 21:20 07/21/24 21:10 07/21/24 21:00 100 07/21/24 20:52 100 07/21/24 20:50 07/21/24 20:49 100 07/21/24 19:57 07/21/24 14:23 07/21/24 13:58 07/21/24 07:34 Intake and Output 07/21/24 07/22/24 07/22/24 22:59 06:59 14:59 Intake Total 1020 489.393 20 Output Total 350 1575 150 Balance 670 -1085.607 -130 Intake: IV 1020 360 20 Magnesium Sulfate-D5w Pmx 200 1 gm In Dextrose/Water 1 100ml.bag @ 100 mls/hr IVPB Q1H JESSICA Rx#: [id number] Sodium Chloride 0.9% 1, 1020 160 20 000 ml @ 20 mls/hr IV . Q24H JESSICA Rx#:[id number] Intake, IV Titration 129.393 Amount Midazolam HCl 50 mg In 0.55 Sodium Chloride 0.9% 40 ml @ 1 MG/HR 1 mls/hr IV .Q24H JESSICA Rx#:[id number] propofoL 1,000 mg In 128.843 Empty Bag 1 bag @ 15 MCG/ KG/MIN 6.491 mls/hr IV . [id number] JESSICA Rx#:[id number] Output: Urine 350 1575 150 Other: Voiding Method Indwelling Catheter Indwelling Catheter # Voids 5 # Bowel Movements 0 Weight 76.1 kg Results 07/22/24 05:33 07/22/24 05:33 Cardiac Enzymes 07/21/24 Range/Units 12:48 Troponin I 0.024 (0.000-0.034) ng/mL CBC 07/21/24 07/22/24 Range/Units 21:23 05:33 WBC 10.8 H 7.7 (3.8-10.6) k/uL RBC 2.86 L 3.29 L (3.80-5.40) m/uL Hgb 11.0 L 12.8 (11.4-16.0) gm/dL Hct 34.1 37.6 (34.0-46.0) % Plt Count 136 L 192 (150-450) k/uL Comprehensive Metabolic Panel 07/21/24 07/22/24 Range/Units 21:23 05:33 Sodium 138 137 (137-145) mmol/L Potassium 3.0 L 3.3 L (3.5-5.1) mmol/L Chloride 111 H 99 (98-107) mmol/L Carbon Dioxide 17 L 30 (22-30) mmol/L BUN 7 9 (7-17) mg/dL Creatinine 0.54 0.62 (0.52-1.04) mg/dL Glucose 162 H 168 H (74-99) mg/dL Calcium 6.7 L 8.7 (8.4-10.2) mg/dL Current Medications Generic Name Dose Route Start Last Admin Trade Name Freq PRN Reason Stop Dose Admin Acetaminophen 650 mg 07/18/24 01:23 Acetaminophen Tab 325 Mg Tab PO Q6HR PRN Mild Pain or Fever > 100.5 Hydrocodone Bitart/Acetaminophen 1 each 07/18/24 11:08 07/20/24 21:50 Hydrocodone/Apap 7.5-325mg 1 Each Tab PO 1 each Q8H PRN Administration Pain Albuterol Sulfate 2 puff 07/18/24 01:53 07/21/24 02:52 Albuterol Hfa Inhaler INHALATION 2 puff RT-QID PRN Administration Shortness Of Breath Or Wheezing Albuterol Sulfate 2 puff 07/20/24 20:00 07/21/24 21:04 Albuterol Hfa Inhaler INHALATION Not Given RT-QID JESSICA Ascorbic Acid 500 mg 07/21/24 15:15 07/21/24 17:19 Ascorbic Acid 500 Mg Tab PO 500 mg DAILY JESSICA Administration Chlorhexidine Gluconate 15 ml 07/21/24 21:00 07/21/24 23:27 Chlorhexidine Gluconate 15 Ml Cup MUCOUS MEM 15 ml BID JESSICA Administration Cholecalciferol 25 mcg 07/21/24 15:30 07/21/24 17:19 Cholecalciferol 25 Mcg (1000 Iu) Tablet PO 25 mcg DAILY JESSICA Administration Dexamethasone Sodium Phosphate 6 mg 07/21/24 21:15 07/21/24 23:27 Dexamethasone Sod Phosphate 10 Mg/Ml 1 Ml Vial IVP 6 mg DAILY JESSICA Administration Enoxaparin Sodium 40 mg 07/21/24 21:15 07/21/24 23:27 Enoxaparin 40 Mg/0.4 Ml Syringe SQ 40 mg DAILY JESSICA Administration Furosemide 40 mg 07/21/24 09:00 07/21/24 17:19 Furosemide 40 Mg Tab PO 40 mg BID@0900,1600 JESSICA Administration Sodium Chloride 1,000 mls @ 20 mls/hr 07/18/24 01:30 07/21/24 17:25 Saline 0.9% IV 20 mls/hr .Q24H JESSICA Administration Propofol 1,000 mg/ IV Solution 100 mls @ 6.491 mls/hr 07/21/24 20:45 07/22/24 03:38 IV 25 mcg/kg/min .[id number] JESSICA 10.818 mls/hr Titration Protocol 15 MCG/KG/MIN Norepinephrine Bitartrate 4 mg 254 mls @ 8.243 mls/hr 07/21/24 22:15 07/21/24 23:28 / Sodium Chloride IV Not Given .Q24H JESSICA Protocol 0.03 MCG/KG/MIN Midazolam HCl 50 mg/ Sodium 50 mls @ 1 mls/hr 07/21/24 22:30 07/21/24 23:14 Chloride IV 2 mg/hr .Q24H JESSICA 2 mls/hr Titration Protocol 1 MG/HR Ibuprofen 400 mg 07/18/24 01:23 Ibuprofen 400 Mg Tab PO Q6HR PRN Mild Pain or Fever > 100.5 Lisinopril 40 mg 07/20/24 17:30 07/21/24 09:47 Lisinopril 20 Mg Tab PO 40 mg DAILY JESSICA Administration Miscellaneous Information 1 each 07/21/24 20:44 Potassium Replacement Protocol 1 Each Misc MISCELLANE DAILY PRN Per Protocol Miscellaneous Information 1 each 07/21/24 20:44 Magnesium Replacement Protocol 1 Each Misc MISCELLANE DAILY PRN Per Protocol Protocol Morphine Sulfate 4 mg 07/18/24 01:23 07/21/24 17:17 Morphine Sulfate 4 Mg/Ml Syringe IV 4 mg Q4HR PRN Administration Severe Pain (Scale 7 to 10) Naloxone HCl 0.2 mg 07/18/24 01:23 Naloxone 0.4 Mg/Ml 1 Ml Vial IV Q2M PRN Opioid Reversal Nicotine 1 patch 07/22/24 09:00 Nicotine 14mg/24hr Patch TRANSDERM DAILY JESSICA Pantoprazole Sodium 40 mg 07/21/24 21:15 07/21/24 23:28 Pantoprazole 40 Mg/10 Ml Vial IVP 40 mg DAILY JESSICA Administration Polyethylene Glycol 17 gm 07/21/24 16:00 07/22/24 01:28 Polyethylene Glycol 3350 17 Gm Powd.Pack PO 17 gm TID JESSICA Administration Potassium Bicarbonate 20 meq 07/22/24 07:00 07/22/24 06:41 Potassium Bicarbonate/Cit Ac 20 Meq Tablet.Eff NG-TUBE 07/22/24 08:01 20 meq Q1HR JESSICA Administration Protocol Quetiapine Fumarate 300 mg 07/18/24 21:00 07/22/24 01:29 Quetiapine 100 Mg Tab PO 300 mg HS JESSICA Administration Zolpidem Tartrate 5 mg 07/18/24 21:00 07/22/24 00:11 Zolpidem 5 Mg Tab PO 5 mg HS JESSICA Administration Intake and Output 07/21/24 07/22/24 07/22/24 22:59 06:59 14:59 Intake Total 1020 489.393 20 Output Total 350 1575 150 Balance 670 -1085.607 -130 Intake: IV 1020 360 20 Magnesium Sulfate-D5w Pmx 200 1 gm In Dextrose/Water 1 100ml.bag @ 100 mls/hr IVPB Q1H JESSICA Rx#: [id number] Sodium Chloride 0.9% 1, 1020 160 20 000 ml @ 20 mls/hr IV . Q24H JESSICA Rx#:[id number] Intake, IV Titration 129.393 Amount Midazolam HCl 50 mg In 0.55 Sodium Chloride 0.9% 40 ml @ 1 MG/HR 1 mls/hr IV .Q24H JESSICA Rx#:[id number] propofoL 1,000 mg In 128.843 Empty Bag 1 bag @ 15 MCG/ KG/MIN 6.491 mls/hr IV . [id number] JESSICA Rx#:[id number] Output: Urine 350 1575 150 Other: Voiding Method Indwelling Catheter Indwelling Catheter # Voids 5 # Bowel Movements 0 Weight 76.1 kg 07/22/24 05:33 07/22/24 05:33
[2024-07-22] MEDS ORDERED: dexAMETHasone 2 MG TAB PO SCH (09:00)
[2024-07-22] MEDS: NICOTINE 14MG/24HR PATCH TRANSDERM SCH (09:00)
[2024-07-22] MEDS: PIPERACILLIN-TAZOBACTAM 3.375 GM in SODIUM CHLORIDE 0.9% 100 ML IVPB SCH (09:02)
--- NOTE | 2024-07-22 09:30 | XR ---
EXAMINATION TYPE: XR chest 1V portable DATE OF EXAM: 07/22/2024 Comparison: 07/21/2024 Clinical History: 54-year-old female Tube placement Findings: Suspect that the ET tube projects over the NG tube. Unable to visualize the distal aspect of the ET t ube due to the overlap. Suspected to be at the medial clavicular heads. NG tube satisfactory. Heart b orderline enlarged. Perihilar and diffuse interstitial and patchy opacities show interval worsening. Impression: Worsening now with progression to patchy bilateral airspace disease.
--- NOTE | 2024-07-22 10:19 | CA ---
Transthoracic Echo Report Name: Velam Garsia Age: 54 Gender: F : 1970 Exam Date: 07/22/2024 07:31 Exam Location: [facility] Ht (in): 64 Wt (lb): 159 Ordering Physician: Jovani Mejia MD Attending/Referring Phys: Veneer Splicer Jessie Strickland RDCS Procedure CPT: Indications: Cardiac Arrest Cardiac Hx: Technical Quality: Technically difficult study Contrast 1: Definity Total Dose (mL): 2 Contrast 2: Total Dose (mL): MEASUREMENTS (Male / Female) Normal Values 2D ECHO LV Diastolic Diameter PLAX 4.8 cm 4.2 - 5.9 / 3.9 - 5.3 cm LV Systolic Diameter PLAX 3.9 cm IVS Diastolic Thickness 0.9 cm 0.6 - 1.0 / 0.6 - 0.9 cm LVPW Diastolic Thickness 1.2 cm 0.6 - 1.0 / 0.6 - 0.9 cm LV Relative Wall Thickness 0.4 LVOT Diameter 1.9 cm Ascending Aorta Diameter 2.7 cm DOPPLER AV Peak Velocity 112.6 cm/s AV Peak Gradient 5.1 mmHg AV Mean Velocity 78.2 cm/s AV Mean Gradient 2.7 mmHg AV Velocity Time Integral 22.3 cm LVOT Peak Velocity 80.2 cm/s LVOT Peak Gradient 2.6 mmHg LVOT Velocity Time Integral 15.0 cm LVOT Stroke Volume 42.5 cm??? LVOT Stroke Volume Index 23.9 ml/m??? LVOT Cardiac Index 1677.3 cm???/min???m??? AV Area Cont Eq vti 1.9 cm??? AV Area Cont Eq pk 2.0 cm??? MV Area PHT 5.2 cm??? Mitral E Point Velocity 51.6 cm/s Mitral A Point Velocity 48.8 cm/s Mitral E to A Ratio 1.1 MV Deceleration Time 147.1 ms TR Peak Velocity 237.8 cm/s TR Peak Gradient 22.6 mmHg Right Atrial Pressure 20.0 mmHg Pulmonary Artery Systolic Pressu 42.6 mmHg Right Ventricular Systolic Press 42.6 mmHg PV Peak Velocity 80.4 cm/s PV Peak Gradient 2.6 mmHg FINDINGS Left Ventricle Left ventricular ejection fraction is estimated at 45 %. Mildly increased posterior wall thickness. Left ventricular cavity size normal. Mildly reduced left ventricular global systolic function with regional variability. Right Ventricle Right ventricle not well visualized. Mild pulmonary hypertension. Right Atrium Right atrium not well visualized. Left Atrium Left atrium not well visualized. Mitral Valve Structurally normal mitral valve. No evidence for mitral valve prolapse. No mitral stenosis. Moderate mitral regurgitation. Aortic Valve Trileaflet aortic valve. No aortic stenosis. Mild aortic regurgitation. Tricuspid Valve Structurally normal tricuspid valve. No tricuspid stenosis. Mild tricuspid regurgitation. Pulmonic Valve Pulmonic valve not well visualized. No pulmonic stenosis. No pulmonic regurgitation. Pericardium No pericardial effusion. Prominent epicardial fat. Aorta Normal size aortic root and proximal ascending aorta. CONCLUSIONS Technically suboptimal study Mild dilated left ventricle with diffuse global hypokinesis and mild LV systolic dysfunction Mild aortic regurgitation Previewed by: Dr. Gabe Palmer MD (Electronically Signed) Final Date: 22 July 2024 10:19
[2024-07-22] MEDS: FUROSEMIDE 10 MG/ML 4 ML VIAL IV SCH (11:21)
[2024-07-22 11:25] LABS: INR 0.9 (<1.2); Partial Thromboplastin Time 29.2 sec (22.0-30.0); Prothrombin Time 10.5 sec (10.0-12.5)
[2024-07-22] MEDS: HEPARIN SOD,PORK IN 0.45% NACL 25,000 UNIT in 0.45% NACL 1 250ML.BAG IV SCH (11:51)
[2024-07-22 12:02] LABS: Glucose,Whole Blood 178 mg/dL (70-110)
--- NOTE | 2024-07-22 13:24 | P.PN ---
Subjective Progress Note Date: 07/22/24 Principal diagnosis: Acute COVID-19 infection and cardiopulmonary arrest This is a 54-year-old female patient with a history of chronic obstructive pulmonary disease, chronic and ongoing tobacco dependence, fibromyalgia, hypertension, bipolar disorder, anxiety who presented here to the emergency room on 07/17/2024 with multiple complaints including burning with urination, cough congestion weakness. Tmax of 102.4. She was found to have a COVID-19 infection. She was found to be hypoxemic. She is on 4 L nasal cannula now. She is febrile. Count 9.6. Hemoglobin 12.2. Platelets 180. D-dimer 1.00. Sodium 142. Potassium 4.0. Bicarb 20. BUN 11. Creatinine 0.7. Glucose 158. AST 144. ALT 102. proBNP 4830. Troponin negative x 1. Procalcitonin negative at 0.20. She is initiated on Decadron and vitamin supplements. She is seen today July 21, 2024 in follow-up after developing increasing shortness of breath. She is maintaining O2 saturations in the 90s on 4 L/min per nasal cannula. Patient was evaluated today on 07/22/2024, I saw this patient yesterday for her COVID-19 infection, patient was more symptomatic than expected based on her physical examination, hence I recommended a CT angiogram of the chest which came back negative for pulmonary embolism, it did show evidence of scattered airspace opacities consistent with pneumonia, multifocal groundglass opacities were also noted. There is also evidence of small bilateral pleural effusions. During my evaluation, patient was on 4 L nasal cannula, and did not seem to be in distress. at 20:22 on 07/21 patient had a sudden episode of unresponsiveness. According to the nurse patient was unresponsive and pulseless. CODE BLUE was immediately activated and CPR was initiated. Apparently she was in asystole patient received 1 dose of epinephrine, went into ventricular fibrillation and she received 1 shock at 120 J. Another V-fib episode was noted shortly after and 200 J were delivered. Patient had subsequent return of spontaneous circulation at 2027. In the meantime the patient was intubated by CYLINDER HONER and she was sent to the ICU, and I was notified about the patient that she is in the U. Discussed the vent settings the ABG reviewed her chest x-ray which clearly showed evidence of pulmonary edema or possibly aspiration pneumonia I recommended Lasix, and I also recommended antibiotic which was started in the form of Zosyn. Patient is now in the ICU. She is on assist-control rate of 20 tidal volume 450 FiO2 100% and PEEP of 8 ABG showed a pO2 of 108 pCO2 34 pH of 7.59. Echocardiogram this morning showed global systolic dysfunction, ejection fraction estimated to be 45%. Patient was also noted to have mild aortic regurgitation. Troponin today is 0.592, patient was seen by cardiology, EKG showed diffuse nonspecific ST and T wave changes and the recommendation is to continue Lasix specially with her LV dysfunction. BNP level is pending, Lasix dose was increased after reviewing her chest x-ray from 20 mg to 40 mg IV push every 8 hours. Patient is also on heparin. And she is on antibiotics in the form of Zosyn. Patient is also on the COVID-19 cocktail, the findings on her chest x-ray are clinically not findings of COVID-19 pneumonia labs today showed WBC of 7.7 hemoglobin 12.8 procalcitonin level on admission was 0.2, basically unremarkable. Her basic metabolic profile is normal renal profile is normal potassium is a bit low at 3.3 being addressed accordingly Objective - Vital Signs Vital signs: Vital Signs Temp 100.1 F H 07/22/24 12:00 Pulse 70 07/22/24 12:00 Resp 16 07/22/24 12:00 BP 109/71 07/22/24 12:00 Pulse Ox 97 07/22/24 12:00 FiO2 60 07/22/24 12:13 Intake & Output 07/21/24 07/22/24 07/22/24 18:59 06:59 18:59 Intake Total 1509.393 201.468 Output Total 1925 1360 Balance -415.607 -1158.532 Weight 76.1 kg 76.1 kg Intake: IV 1380 120 Magnesium Sulfate-D5w Pmx 200 1 gm In Dextrose/Water 1 100ml.bag @ 100 mls/hr IVPB Q1H JESSICA Rx#: [id number] Sodium Chloride 0.9% 1, 1180 120 000 ml @ 20 mls/hr IV . Q24H JESSICA Rx#:[id number] Intake, IV Titration 129.393 81.468 Amount Midazolam HCl 50 mg In 0.55 33.034 Sodium Chloride 0.9% 40 ml @ 1 MG/HR 1 mls/hr IV .Q24H JESSICA Rx#:[id number] propofoL 1,000 mg In 128.843 48.434 Empty Bag 1 bag @ 15 MCG/ KG/MIN 6.491 mls/hr IV . [id number] JESSICA Rx#:[id number] Output: Urine 1925 1360 Other: Voiding Method Toilet Indwelling Catheter Indwelling Catheter # Voids 5 # Bowel Movements 0 ABP, PAP, CO, CI - Last Documented Arterial Blood Pressure 125/64 - Exam GENERAL EXAM: Reveals a 54-year-old female intubated mechanically ventilated sedated on Versed and propofol. Not requiring any pressors HEAD: Normocephalic. EYES: Normal reaction of pupils, equal size. NOSE: Clear with pink turbinates. THROAT: No erythema or exudates. Endotracheal tube and orogastric tube are intact NECK: No masses, no JVD. CHEST: No chest wall deformity. LUNGS: Crackles at the bases bilaterally. CVS: S1 and S2 normal with 2/6 systolic murmur throughout the precordium. ABDOMEN: No hepatosplenomegaly, normal bowel sounds, no guarding or rigidity. SKIN: No rashes, multiple tattoos noted. CENTRAL NERVOUS SYSTEM: Cannot assess patient is fully sedated EXTREMITIES: No clubbing edema or cyanosis, good pulses bilaterally. - Labs CBC & Chem 7: 07/22/24 05:33 07/22/24 05:33 Labs: Abnormal Lab Results - Last 24 Hours (Table) 07/21/24 07/21/24 07/21/24 Range/Units 12:48 20:23 20:51 WBC (3.8-10.6) k/uL RBC (3.80-5.40) m/uL Hgb (11.4-16.0) gm/dL MCV (80.0-100.0) fL MCH (25.0-35.0) pg Plt Count (150-450) k/uL Macrocytosis D-Dimer 1.00 H (<0.60) mg/L FEU ABG pH (7.35-7.45) ABG pCO2 (35-45) mmHg ABG pO2 (83-108) mmHg ABG HCO3 (21-25) mmol/L ABG Total CO2 (19-24) mmol/L ABG O2 Saturation (94-97) % Potassium (3.5-5.1) mmol/L Chloride (98-107) mmol/L Carbon Dioxide (22-30) mmol/L Glucose (74-99) mg/dL POC Glucose (mg/dL) 125 H 240 H (70-110) mg/dL Plasma Lactic Acid [place] (0.7-2.0) mmol/L Calcium (8.4-10.2) mg/dL Magnesium (1.6-2.3) mg/dL Troponin I (0.000-0.034) ng/mL Urine Protein (Negative) Urine Blood (Negative) Urine Mucus (None) /hpf 07/21/24 07/21/24 07/21/24 Range/Units 21:23 21:23 21:23 WBC 10.8 H (3.8-10.6) k/uL RBC 2.86 L (3.80-5.40) m/uL Hgb 11.0 L (11.4-16.0) gm/dL MCV 119.0 H D (80.0-100.0) fL MCH 38.5 H (25.0-35.0) pg Plt Count 136 L (150-450) k/uL Macrocytosis Marked A D-Dimer (<0.60) mg/L FEU ABG pH (7.35-7.45) ABG pCO2 (35-45) mmHg ABG pO2 (83-108) mmHg ABG HCO3 (21-25) mmol/L ABG Total CO2 (19-24) mmol/L ABG O2 Saturation (94-97) % Potassium 3.0 L (3.5-5.1) mmol/L Chloride 111 H (98-107) mmol/L Carbon Dioxide 17 L (22-30) mmol/L Glucose 162 H (74-99) mg/dL POC Glucose (mg/dL) (70-110) mg/dL Plasma Lactic Acid [place] 4.1 H* (0.7-2.0) mmol/L Calcium 6.7 L (8.4-10.2) mg/dL Magnesium 1.4 L (1.6-2.3) mg/dL Troponin I (0.000-0.034) ng/mL Urine Protein (Negative) Urine Blood (Negative) Urine Mucus (None) /hpf 07/21/24 07/21/2424 Range/Units 21:32 23:00 05:33 WBC (3.8-10.6) k/uL RBC 3.29 L (3.80-5.40) m/uL Hgb (11.4-16.0) gm/dL MCV 114.2 H (80.0-100.0) fL MCH 38.8 H (25.0-35.0) pg Plt Count (150-450) k/uL Macrocytosis Marked A D-Dimer (<0.60) mg/L FEU ABG pH (7.35-7.45) ABG pCO2 (35-45) mmHg ABG pO2 72 L (83-108) mmHg ABG HCO3 26 H (21-25) mmol/L ABG Total CO2 27 H (19-24) mmol/L ABG O2 Saturation (94-97) % Potassium (3.5-5.1) mmol/L Chloride (98-107) mmol/L Carbon Dioxide (22-30) mmol/L Glucose (74-99) mg/dL POC Glucose (mg/dL) (70-110) mg/dL Plasma Lactic Acid [place] (0.7-2.0) mmol/L Calcium (8.4-10.2) mg/dL Magnesium (1.6-2.3) mg/dL Troponin I (0.000-0.034) ng/mL Urine Protein 1+ H (Negative) Urine Blood Trace H (Negative) Urine Mucus Rare H (None) /hpf 07/22/24 07/22/24 07/22/24 Range/Units 05:33 06:07 06:08 WBC (3.8-10.6) k/uL RBC (3.80-5.40) m/uL Hgb (11.4-16.0) gm/dL MCV (80.0-100.0) fL MCH (25.0-35.0) pg Plt Count (150-450) k/uL Macrocytosis D-Dimer (<0.60) mg/L FEU ABG pH 7.59 H* (7.35-7.45) ABG pCO2 34 L (35-45) mmHg ABG pO2 (83-108) mmHg ABG HCO3 32 H (21-25) mmol/L ABG Total CO2 33 H (19-24) mmol/L ABG O2 Saturation 99.1 H (94-97) % Potassium 3.3 L (3.5-5.1) mmol/L Chloride (98-107) mmol/L Carbon Dioxide (22-30) mmol/L Glucose 168 H (74-99) mg/dL POC Glucose (mg/dL) 179 H (70-110) mg/dL Plasma Lactic Acid [place] (0.7-2.0) mmol/L Calcium (8.4-10.2) mg/dL Magnesium 2.6 H (1.6-2.3) mg/dL Troponin I (0.000-0.034) ng/mL Urine Protein (Negative) Urine Blood (Negative) Urine Mucus (None) /hpf 07/22/24 07/22/24 Range/Units 07:20 12:01 WBC (3.8-10.6) k/uL RBC (3.80-5.40) m/uL Hgb (11.4-16.0) gm/dL MCV (80.0-100.0) fL MCH (25.0-35.0) pg Plt Count (150-450) k/uL Macrocytosis D-Dimer (<0.60) mg/L FEU ABG pH (7.35-7.45) ABG pCO2 (35-45) mmHg ABG pO2 (83-108) mmHg ABG HCO3 (21-25) mmol/L ABG Total CO2 (19-24) mmol/L ABG O2 Saturation (94-97) % Potassium (3.5-5.1) mmol/L Chloride (98-107) mmol/L Carbon Dioxide (22-30) mmol/L Glucose (74-99) mg/dL POC Glucose (mg/dL) 178 H (70-110) mg/dL Plasma Lactic Acid [place] (0.7-2.0) mmol/L Calcium (8.4-10.2) mg/dL Magnesium (1.6-2.3) mg/dL Troponin I 0.592 H* (0.000-0.034) ng/mL Urine Protein (Negative) Urine Blood (Negative) Urine Mucus (None) /hpf Microbiology - Last 24 Hours (Table) 07/17/24 22:22 Blood Culture - Preliminary Blood Assessment and Plan Assessment: Impression: Acute hypoxic respiratory failure secondary to cardiac arrest requiring intubation mechanical ventilation Acute COVID-19 infection, doubt COVID-19 pneumonia Acute congestive heart failure, systolic in nature based on LV function/noted on echocardiogram with ejection fraction of 45%, BNP level is 4830 Febrile illness secondary to above/COVID-19 infection Possible aspiration pneumonia Underlying chronic obstructive pulmonary disease, presently inactive Chronic ongoing tobacco dependence History of bipolar disorder History of fibromyalgia Generalized anxiety disorder Recommendation: Continue present supportive care measures Continue ventilatory support Continue diuretics Continue COVID-19 cocktail Continue Decadron Continue GI and DVT prophylaxis Continue sedation/Versed and taper down possibly discontinue propofol. Patient did not do as well on propofol alone. Continue bronchodilators Titrate FiO2 accordingly based on O2 saturations maintain SaO2 over 93% Cardiology is addressing her cardiac arrest situation and LV dysfunction and pre sently on heparin. Will continue to follow. Critical care time is over 30 minutes not including the time spent on procedures. Time with Patient: Greater than 30
--- NOTE | 2024-07-22 13:39 | OP ---
OPERATIVE REPORT DATE OF SERVICE : PROCEDURE PERFORMED: Placement of left radial arterial line. PREOPERATIVE DIAGNOSIS: Acute cardiac arrest and hypoxic respiratory failure. POSTOPERATIVE DIAGNOSIS: Acute cardiac arrest and hypoxic respiratory failure. ANESTHESIA USED: None deployed. DESCRIPTION OF PROCEDURE: Left wrist was prepared in a sterile fashion. Drapes were applied. Left radial artery was palpated, easily cannulated, and a guidewire was placed. A Cook's catheter was inserted over the guidewire, and the guidewire was removed. Good blood flow, good waveform. No complications. Line was secured using 3.0 silk sutures. MMODL / IJN: [id number] /
[2024-07-22] MEDS: ACETAMINOPHEN TAB 325 MG TAB PO PRN (14:30)
[2024-07-22 14:49] LABS: Potassium 3.4 mmol/L (3.5-5.1)
[2024-07-22 18:00] LABS: Glucose,Whole Blood 155 mg/dL (70-110)
--- NOTE | 2024-07-22 20:46 | PN ---
PROGRESS NOTE DATE OF SERVICE: 07/21/2024 CHIEF COMPLAINT: Pneumonitis, COVID, and COPD. HISTORY OF PRESENT ILLNESS: This lady is still quite short of breath and is asking to have her oxygen increased. She is not responding well to treatment. PHYSICAL EXAMINATION: CHEST: Demonstrates reasonably good breath sounds. There are occasional rales and rhonchi, but they are not particularly remarkable. CARDIAC: Normal. ABDOMEN: Soft, nontender. IMPRESSION: 1. COVID. 2. Pneumonitis. 3. Chronic obstructive pulmonary disease. PLAN: 1. Repeat laboratory studies, and chest x-ray. 2. Await pulmonology evaluation. MMODL / IJN: [id number] /
--- NOTE | 2024-07-22 21:01 | PN ---
PROGRESS NOTE DATE OF SERVICE: 07/22/2024 CHIEF COMPLAINT: Pneumonitis, bronchitis, and status post cardiac arrest. HISTORY OF PRESENT ILLNESS: This lady apparently had a cardiorespiratory arrest late last night and was transferred to the intensive care unit and placed on a ventilator. REVIEW OF SYSTEMS: Unobtainable. PHYSICAL EXAMINATION: VITAL SIGNS: At present time, her vital signs are normal. CHEST: Breath sounds are heard bilaterally. CARDIAC: Normal. IMPRESSION: 1. Status post cardiorespiratory arrest. 2. Bilateral bronchopneumonia. 3. COVID. 4. Chronic obstructive pulmonary disease. PLAN: Continue with ICU management and respiratory support. MMODL / IJN: [id number] /
[2024-07-22 23:53] LABS: Glucose,Whole Blood 199 mg/dL (70-110)
--- NOTE | 2024-07-23 01:31 | PN ---
PROGRESS NOTE DATE OF SERVICE: 07/20/2024 CHIEF COMPLAINT: Bronchopneumonia and COVID. HISTORY OF PRESENT ILLNESS: This lady is still having trouble and is very short of breath. She has become quite edematous and her blood pressure is also slightly elevated. PHYSICAL EXAMINATION: GENERAL: She is awake and alert, but short of breath. HEENT: Face is edematous. CHEST: Demonstrates scattered rales and rhonchi. CARDIAC: Normal. ABDOMEN: Soft, nontender. IMPRESSION: 1. Bronchopneumonia. 2. COVID. 3. Chronic obstructive pulmonary disease. 4. Edema. 5. Hypertension. PLAN: Continue with current program and add Lasix and lisinopril and continue to monitor. She will also be referred to Pulmonology. MMODL / IJN: [id number] /
[2024-07-23 04:43] LABS: ABG Base Excess 13.2 mmol/L; ABG HCO3 36 mmol/L (21-25); ABG Oxygen Saturation 91.3 % (94-97); ABG PCO2 40 mmHg (35-45); ABG TCO2 38 mmol/L (19-24)
[2024-07-23 04:48] LABS: ABG PH 7.57 (7.35-7.45); ABG PO2 55 mmHg (83-108); Allen Test Performed? no
[2024-07-23 05:46] LABS: Basophils # (A) 0.1 k/uL (0-0.2); Basophils % (A) 1 %; Eosinophils % (A) 0 %; HGB 13.4 gm/dL (11.4-16.0); Lymphocytes # (A) 2.9 k/uL (1.0-4.8); Lymphocytes % (A) 23 %; MCH 38.2 pg (25.0-35.0); MCHC 33.4 g/dL (31.0-37.0); MCV 114.5 fL (80.0-100.0); Mean Platelet Volume 10.6; Monocytes # (A) 0.7 k/uL (0-1.0); Monocytes % (A) 5 %; Neutrophils # (A) 8.6 k/uL (1.3-7.7); Neutrophils % (A) 69 %; Platelet Count 206 k/uL (150-450); RBC 3.49 m/uL (3.80-5.40); RDW 12.9 % (11.5-15.5); WBC 12.6 k/uL (3.8-10.6)
[2024-07-23 05:52] LABS: Macrocytosis Marked
[2024-07-23 05:53] LABS: Glucose,Whole Blood 202 mg/dL (70-110)
[2024-07-23 06:13] LABS: INR 0.9 (<1.2); Prothrombin Time 10.3 sec (10.0-12.5)
[2024-07-23] MEDS: HEPARIN SODIUM 1,000 UN/ML (10ML VL) IV PRN (06:21)
[2024-07-23 06:46] LABS: African American GFR (CKD) 82 (>60 ml/min/1.73 sqM); Anion Gap 7 mmol/L; Blood Urea Nitrogen 17 mg/dL (7-17); Calcium 9.1 mg/dL (8.4-10.2); Carbon Dioxide 37 mmol/L (22-30); Chloride 95 mmol/L (98-107); Glucose 202 mg/dL (74-99); Non-African American GFR(CKD) 71 (>60 ml/min/1.73 sqM); Potassium 3.3 mmol/L (3.5-5.1); Sodium 139 mmol/L (137-145)
[2024-07-23] MEDS: POTASSIUM BICARBONATE/CIT AC 20 MEQ TABLET.EFF NG-TUBE SCH ×3 (06:56→22:57)
--- NOTE | 2024-07-23 07:26 | XR ---
EXAMINATION TYPE: XR chest 1V portable DATE OF EXAM: 07/23/2024 6:03 AM CLINICAL INDICATION: Female, 54 years old with history of Tube placement; COMPARISON: Chest radiographs from 07/22/2024 TECHNIQUE: XR chest 1V portable Frontal view of the chest. FINDINGS: Lungs/Pleura: There is no evidence of pleural effusion, focal consolidation, or pneumothorax. Pulmonary vascularity: Unremarkable. Heart/mediastinum: Cardiomediastinal silhouette is unremarkable. Musculoskeletal: No acute osseous pathology. Other findings: None Lines/Tubes: Endotracheal tube with distal tip 3.9 cm above the alexys. Nasogastric tube with its distal tip and side-port projecting under the diaphragm. IMPRESSION: Support tubes in appropriate position.
[2024-07-23] MEDS: CISATRACURIUM 2 MG/ML 5 ML VIAL IV ONE (09:37)
--- NOTE | 2024-07-23 10:41 | XR ---
EXAMINATION TYPE: XR chest 1V confirm line plcmt DATE OF EXAM: 07/23/2024 10:25 AM CLINICAL INDICATION: Female, 54 years old with history of central line placement; [facility] COMPARISON: Chest radiograph from same day. TECHNIQUE: XR chest 1V confirm line plcmt Frontal view of the chest. FINDINGS: Lungs/Pleura: There is no evidence of pleural effusion, focal consolidation, or pneumothorax. Pulmonary vascularity: Unremarkable. Heart/mediastinum: Cardiomediastinal silhouette is unremarkable. Musculoskeletal: No acute osseous pathology. Other findings: None Lines/Tubes: Endotracheal tube with distal tip 5.3 cm above the alexys. Nasogastric tube with its distal tip and side-port projecting under the diaphragm. Left central venous catheter with distal tip at the cavoatrial junction. IMPRESSION: Central venous catheter and support tubes in appropriate position.
--- NOTE | 2024-07-23 11:04 | OP ---
OPERATIVE REPORT DATE OF SERVICE : PROCEDURE PERFORMED: Placement of the left subclavian triple-lumen catheter. PREOPERATIVE DIAGNOSES: Acute hypoxic respiratory failure, cardiac arrest, hypotension. POSTOPERATIVE DIAGNOSIS: Acute hypoxic respiratory failure, cardiac arrest, hypotension. ANESTHESIA USED: 2 mL of 1% lidocaine. DESCRIPTION OF PROCEDURE: The patient was placed in a supine position, the area below the left scapula was prepared in a sterile fashion. Drapes were applied. The area below the left scapula was anesthetized using lidocaine. Then, using the inferior approach, the left subclavian vein was easily cannulated, a guidewire was placed, area around the guidewire was dilated, triple-lumen catheter was inserted over the guidewire, and the guidewire was removed. Good blood flow noted in the three different ports of the triple-lumen catheter, line was secured using 3-0 silk sutures. Chest x-ray postoperatively showed no complications, no pneumothorax, and the line was in proper position. MMODL / IJN: [id number] /
--- NOTE | 2024-07-23 11:29 | P.PN ---
Subjective Progress Note Date: 07/23/24 Principal diagnosis: Acute COVID-19 infection and cardiopulmonary arrest This is a 54-year-old female patient with a history of chronic obstructive pulmonary disease, chronic and ongoing tobacco dependence, fibromyalgia, hypertension, bipolar disorder, anxiety who presented here to the emergency room on 07/17/2024 with multiple complaints including burning with urination, cough congestion weakness. Tmax of 102.4. She was found to have a COVID-19 infection. She was found to be hypoxemic. She is on 4 L nasal cannula now. She is febrile. Count 9.6. Hemoglobin 12.2. Platelets 180. D-dimer 1.00. Sodium 142. Potassium 4.0. Bicarb 20. BUN 11. Creatinine 0.7. Glucose 158. AST 144. ALT 102. proBNP 4830. Troponin negative x 1. Procalcitonin negative at 0.20. She is initiated on Decadron and vitamin supplements. She is seen today July 21, 2024 in follow-up after developing increasing shortness of breath. She is maintaining O2 saturations in the 90s on 4 L/min per nasal cannula. Patient was evaluated today on 07/22/2024, I saw this patient yesterday for her COVID-19 infection, patient was more symptomatic than expected based on her physical examination, hence I recommended a CT angiogram of the chest which came back negative for pulmonary embolism, it did show evidence of scattered airspace opacities consistent with pneumonia, multifocal groundglass opacities were also noted. There is also evidence of small bilateral pleural effusions. During my evaluation, patient was on 4 L nasal cannula, and did not seem to be in distress. at 20:22 on 07/21 patient had a sudden episode of unresponsiveness. According to the nurse patient was unresponsive and pulseless. CODE BLUE was immediately activated and CPR was initiated. Apparently she was in asystole patient received 1 dose of epinephrine, went into ventricular fibrillation and she received 1 shock at 120 J. Another V-fib episode was noted shortly after and 200 J were delivered. Patient had subsequent return of spontaneous circulation at 2027. In the meantime the patient was intubated by [employer] and she was sent to the ICU, and I was notified about the patient that she is in the U. Discussed the vent settings the ABG reviewed her chest x-ray which clearly showed evidence of pulmonary edema or possibly aspiration pneumonia I recommended Lasix, and I also recommended antibiotic which was started in the form of Zosyn. Patient is now in the ICU. She is on assist-control rate of 20 tidal volume 450 FiO2 100% and PEEP of 8 ABG showed a pO2 of 108 pCO2 34 pH of 7.59. Echocardiogram this morning showed global systolic dysfunction, ejection fraction estimated to be 45%. Patient was also noted to have mild aortic regurgitation. Troponin today is 0.592, patient was seen by cardiology, EKG showed diffuse nonspecific ST and T wave changes and the recommendation is to continue Lasix specially with her LV dysfunction. BNP level is pending, Lasix dose was increased after reviewing her chest x-ray from 20 mg to 40 mg IV push every 8 hours. Patient is also on heparin. And she is on antibiotics in the form of Zosyn. Patient is also on the COVID-19 cocktail, the findings on her chest x-ray are clinically not findings of COVID-19 pneumonia labs today showed WBC of 7.7 hemoglobin 12.8 procalcitonin level on admission was 0.2, basically unremarkable. Her basic metabolic profile is normal renal profile is normal potassium is a bit low at 3.3 being addressed accordingly Patient was seen today on 07/23/2024, remains in the ICU intubated and mechanically ventilated. Patient is on assist-control rate of 16 tidal volume 450 FiO2 60% PEEP of 12 ABG remains marginal with a pO2 of 55 pCO2 40 pH of 7.57 chest x-ray is showing significant improvement in her infiltrates/pulmonary edema over the last 24 hours, patient has been left on Lasix all along. Patient is requiring a small dose of norepinephrine for low blood pressure norepinephrine at 0.04 mcg/kg/min today I recommended holding the Lasix and starting IV fluid at 125 cc per hour. Patient remains on propofol at 25 mcg/kg/min and Versed at 5 mg/h. Today I am recommending that we taper and discontinue propofol, and maintain the patient on Versed even if we have to increase the dose. Steroids while she was on Decadron, and I am recommending Solu-Medrol I am also recommended that we continue Zosyn. Lasix is now on hold. Heparin still on board as ordered by cardiology. Echocardiogram did show evidence of mild LV dysfunction chest x-ray improved with diuretics. WBC 12.6 hemoglobin 13.4. PTT was 34 today. Heparin was placed on hold temporarily until a line was placed/triple-lumen catheter and will be restarted renal profile is normal potassium is a bit low at 3.3 being addressed accordingly Objective - Vital Signs Vital signs: Vital Signs Temp 99.7 F H 07/23/24 08:00 Pulse 96 07/23/24 11:15 Resp 23 07/23/24 11:15 BP 120/84 07/23/24 11:15 Pulse Ox 91 L 07/23/24 11:15 FiO2 60 07/23/24 10:45 Intake & Output 07/22/24 07/23/24 07/23/24 18:59 06:59 18:59 Intake Total 493.367 889.224 574.188 Output Total 3265 835 825 Balance -2771.633 54.224 -250.812 Weight 76.1 kg 75 kg Intake: IV 260 80 Sodium Chloride 0.9% 1, 260 80 000 ml @ 20 mls/hr IV . Q24H JESSICA Rx#:[id number] Intake, IV Titration 193.367 454.224 185.188 Amount Heparin Sod,Pork in 0.45% 168.942 22.45 NaCl 25,000 unit In 0.45 % NaCl 1 250ml.bag @ 12 UNITS/KG/HR 9.132 mls/hr IV .Q24H JESSICA Rx#: [id number] Midazolam HCl 50 mg In 53.701 37.416 27.467 Sodium Chloride 0.9% 40 ml @ 1 MG/HR 1 mls/hr IV .Q24H JESSICA Rx#:[id number] Norepinephrine 4 mg In 121.222 15.799 Sodium Chloride 0.9% 250 ml @ 0.03 MCG/KG/MIN 8. 243 mls/hr IV .Q24H JESSICA Rx#:[id number] Piperacillin-Tazobactam 3 100 .375 gm In Sodium Chloride 0.9% 100 ml @ 25 mls/hr IVPB Q8HR JESSICA Rx# :[id number] propofoL 1,000 mg In 139.666 126.644 19.472 Empty Bag 1 bag @ 15 MCG/ KG/MIN 6.491 mls/hr IV . [id number] JESSICA Rx#:[id number] Tube Feeding 40 345 179 Other 90 130 Output: Urine 3265 835 825 Other: Voiding Method Indwelling Catheter Indwelling Catheter ABP, PAP, CO, CI - Last Documented Arterial Blood Pressure 91/56 - Exam GENERAL EXAM: Reveals a 54-year-old female intubated mechanically ventilated sedated on Versed and propofol. HEAD: Normocephalic. EYES: Normal reaction of pupils, equal size. NOSE: Clear with pink turbinates. THROAT: No erythema or exudates. Endotracheal tube and orogastric tube are intact NECK: No masses, no JVD. CHEST: No chest wall deformity. LUNGS: Diminished breath sounds at the bases no crackles rhonchi or wheezes CVS: S1 and S2 normal with 2/6 systolic murmur throughout the precordium. ABDOMEN: No hepatosplenomegaly, normal bowel sounds, no guarding or rigidity. SKIN: No rashes, multiple tattoos noted. CENTRAL NERVOUS SYSTEM: Cannot assess patient is fully sedated EXTREMITIES: No clubbing edema or cyanosis, good pulses bilaterally. - Labs CBC & Chem 7: 07/23/24 05:23 07/23/24 05:08 Labs: Abnormal Lab Results - Last 24 Hours (Table) 07/22/24 07/22/24 07/22/24 Range/Units 12:01 13:55 13:55 WBC (3.8-10.6) k/uL RBC (3.80-5.40) m/uL MCV (80.0-100.0) fL MCH (25.0-35.0) pg Neutrophils # (1.3-7.7) k/uL Macrocytosis APTT (22.0-30.0) sec ABG pH (7.35-7.45) ABG pO2 (83-108) mmHg ABG HCO3 (21-25) mmol/L ABG Total CO2 (19-24) mmol/L ABG O2 Saturation (94-97) % Potassium 3.4 L (3.5-5.1) mmol/L Chloride (98-107) mmol/L Carbon Dioxide (22-30) mmol/L Glucose (74-99) mg/dL POC Glucose (mg/dL) 178 H (70-110) mg/dL Troponin I 0.367 H* (0.000-0.034) ng/mL 07/22/24 07/22/24 07/22/24 Range/Units 17:59 18:00 20:15 WBC (3.8-10.6) k/uL RBC (3.80-5.40) m/uL MCV (80.0-100.0) fL MCH (25.0-35.0) pg Neutrophils # (1.3-7.7) k/uL Macrocytosis APTT 44.0 H (22.0-30.0) sec ABG pH (7.35-7.45) ABG pO2 (83-108) mmHg ABG HCO3 (21-25) mmol/L ABG Total CO2 (19-24) mmol/L ABG O2 Saturation (94-97) % Potassium (3.5-5.1) mmol/L Chloride (98-107) mmol/L Carbon Dioxide (22-30) mmol/L Glucose (74-99) mg/dL POC Glucose (mg/dL) 155 H (70-110) mg/dL Troponin I 0.225 H* (0.000-0.034) ng/mL 07/22/24 07/22/24 07/23/24 Range/Units 20:15 23:51 04:40 WBC (3.8-10.6) k/uL RBC (3.80-5.40) m/uL MCV (80.0-100.0) fL MCH (25.0-35.0) pg Neutrophils # (1.3-7.7) k/uL Macrocytosis APTT (22.0-30.0) sec ABG pH 7.57 H* (7.35-7.45) ABG pO2 55 L* (83-108) mmHg ABG HCO3 36 H (21-25) mmol/L ABG Total CO2 38 H (19-24) mmol/L ABG O2 Saturation 91.3 L (94-97) % Potassium 3.4 L (3.5-5.1) mmol/L Chloride (98-107) mmol/L Carbon Dioxide (22-30) mmol/L Glucose (74-99) mg/dL POC Glucose (mg/dL) 199 H (70-110) mg/dL Troponin I (0.000-0.034) ng/mL 07/23/24 07/23/24 07/23/24 Range/Units 05:08 05:08 05:23 WBC 12.6 H (3.8-10.6) k/uL RBC 3.49 L (3.80-5.40) m/uL MCV 114.5 H (80.0-100.0) fL MCH 38.2 H (25.0-35.0) pg Neutrophils # 8.6 H (1.3-7.7) k/uL Macrocytosis Marked A APTT 34.0 H (22.0-30.0) sec ABG pH (7.35-7.45) ABG pO2 (83-108) mmHg ABG HCO3 (21-25) mmol/L ABG Total CO2 (19-24) mmol/L ABG O2 Saturation (94-97) % Potassium 3.3 L (3.5-5.1) mmol/L Chloride 95 L (98-107) mmol/L Carbon Dioxide 37 H (22-30) mmol/L Glucose 202 H (74-99) mg/dL POC Glucose (mg/dL) (70-110) mg/dL Troponin I (0.000-0.034) ng/mL 07/23/24 Range/Units 05:52 WBC (3.8-10.6) k/uL RBC (3.80-5.40) m/uL MCV (80.0-100.0) fL MCH (25.0-35.0) pg Neutrophils # (1.3-7.7) k/uL Macrocytosis APTT (22.0-30.0) sec ABG pH (7.35-7.45) ABG pO2 (83-108) mmHg ABG HCO3 (21-25) mmol/L ABG Total CO2 (19-24) mmol/L ABG O2 Saturation (94-97) % Potassium (3.5-5.1) mmol/L Chloride (98-107) mmol/L Carbon Dioxide (22-30) mmol/L Glucose (74-99) mg/dL POC Glucose (mg/dL) 202 H (70-110) mg/dL Troponin I (0.000-0.034) ng/mL Microbiology - Last 24 Hours (Table) 07/22/24 05:00 Gram Stain - Preliminary Sputum Assessment and Plan Assessment: Impression: Acute hypoxic respiratory failure secondary to cardiac arrest requiring intubation mechanical ventilation Acute COVID-19 infection, doubt COVID-19 pneumonia Acute congestive heart failure, systolic in nature based on LV function/noted on echocardiogram with ejection fraction of 45%, BNP level is 4830 Febrile illness secondary to above/COVID-19 infection Possible aspiration pneumonia Underlying chronic obstructive pulmonary disease, presently inactive Chronic ongoing tobacco dependence History of bipolar disorder History of fibromyalgia Generalized anxiety disorder Recommendation: Continue ventilatory support Continue hemodynamic support Hold diuretics since the patient's chest x-ray is showing definite improvement Continue heparin as recommended by cardiology Enteral feeding/nutritional support Continue steroids/Solu-Medrol and discontinue Decadron Continue GI and DVT prophylaxis Taper off propofol, and maintain patient on Versed if possible Continue to monitor daily blood gases and daily x-rays of the chest as well as daily labs Cardiology is addressing issue of her cardiac arrest and LV dysfunction Patient remains critically ill Critical care time is over 30 minutes not including the time spent on procedures Will continue to follow, prognosis is guarded Time with Patient: Greater than 30
--- NOTE | 2024-07-23 11:34 | P.PN ---
Subjective Progress Note Date: 07/23/24 This is a 54-year-old female patient with a past medical history significant for hypertension and COPD who requested to see in the ICU for further evaluation after change in mental status and what it seems to be "asystole" on the floor. The patient currently is intubated on mechanical ventilation and history was taken from the chart. The patient presented and was admitted to the hospital with COVID-related symptoms. Subsequently she was on the floor when she developed change in mental status and "asystole". No further details and no documentation of any asystole at this point. Subsequently the patient was intubated and placed on mechanical ventilation and she was brought to the intensive care unit. There was a concern about pulmonary edema and she was given Lasix. She underwent further evaluation including a chest x-ray which showed pulmonary vascular congestions and NT proBNP came in to be elevated troponin came in to be unremarkable and the rest of the blood work overall came in to be unremarkable including CBC and BMP. The EKG showed sinus mechanism with diffuse nonspecific ST and T wave abnormalities. 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 She does have hypertension and COPD. The physical examination is remarkable for regular rhythm with a soft systolic murmur at the right upper sternal border with diminished breathing sounds bilaterally and bilateral rhonchi and mild bilateral lower extremities edema noted. July 23, 2024 The patient was seen and evaluated this morning which she continues to be intubated on mechanical ventilation. She is still on small dose of norepinephrine. Otherwise she has been maintaining normal sinus mechanism. The echo showed mild cardiomyopathy with EF around 45% with global hypokinesia. The troponin came to be mildly elevated and she was started on heparin and I would continue that for additional 24-hour and total of 48 hours. Otherwise she is on aspirin. Am going to add statin to the current medical regimen which she is on lisinopril. The physical examination is remarkable for regular rhythm with a systolic murmur and diminished breathing sounds bilaterally and no edema was noted. The chest x-ray was reviewed. The blood work was reviewed. Assessment Cardiopulmonary arrest with "asystole" Acute hypoxic respiratory failure Heart failure of unknown etiology at this point Hypertension COPD Evidence of myocardial injury Mild cardiomyopathy Plan Continue the current medical regimen Continue heparin for total of 48 hours Continue aspirin Start the patient on statin Continue ROSEMARIE inhibitor Avoid any beta-rosie Follow-up with the patient Objective - Vital Signs Vital signs: Vital Signs Temp 99.7 F H 07/23/24 08:00 Pulse 96 07/23/24 11:15 Resp 23 07/23/24 11:15 BP 120/84 07/23/24 11:15 Pulse Ox 91 L 07/23/24 11:15 FiO2 60 07/23/24 10:45 Intake & Output 07/22/24 07/23/24 07/23/24 18:59 06:59 18:59 Intake Total 493.367 889.224 574.188 Output Total 3265 835 825 Balance -2771.633 54.224 -250.812 Weight 76.1 kg 75 kg Intake: IV 260 80 Sodium Chloride 0.9% 1, 260 80 000 ml @ 20 mls/hr IV . Q24H JESSICA Rx#:[id number] Intake, IV Titration 193.367 454.224 185.188 Amount Heparin Sod,Pork in 0.45% 168.942 22.45 NaCl 25,000 unit In 0.45 % NaCl 1 250ml.bag @ 12 UNITS/KG/HR 9.132 mls/hr IV .Q24H JESSICA Rx#: [id number] Midazolam HCl 50 mg In 53.701 37.416 27.467 Sodium Chloride 0.9% 40 ml @ 1 MG/HR 1 mls/hr IV .Q24H JESSICA Rx#:[id number] Norepinephrine 4 mg In 121.222 15.799 Sodium Chloride 0.9% 250 ml @ 0.03 MCG/KG/MIN 8. 243 mls/hr IV .Q24H JESSICA Rx#:[id number] Piperacillin-Tazobactam 3 100 .375 gm In Sodium Chloride 0.9% 100 ml @ 25 mls/hr IVPB Q8HR JESSICA Rx# :[id number] propofoL 1,000 mg In 139.666 126.644 19.472 Empty Bag 1 bag @ 15 MCG/ KG/MIN 6.491 mls/hr IV . [id number] JESSICA Rx#:[id number] Tube Feeding 40 345 179 Other 90 130 Output: Urine 3265 835 825 Other: Voiding Method Indwelling Catheter Indwelling Catheter ABP, PAP, CO, CI - Last Documented Arterial Blood Pressure 91/56 - Labs CBC & Chem 7: 07/23/24 05:23 07/23/24 05:08 Labs: Abnormal Lab Results - Last 24 Hours (Table) 07/22/24 07/22/24 07/22/24 Range/Units 12:01 13:55 13:55 WBC (3.8-10.6) k/uL RBC (3.80-5.40) m/uL MCV (80.0-100.0) fL MCH (25.0-35.0) pg Neutrophils # (1.3-7.7) k/uL Macrocytosis APTT (22.0-30.0) sec ABG pH (7.35-7.45) ABG pO2 (83-108) mmHg ABG HCO3 (21-25) mmol/L ABG Total CO2 (19-24) mmol/L ABG O2 Saturation (94-97) % Potassium 3.4 L (3.5-5.1) mmol/L Chloride (98-107) mmol/L Carbon Dioxide (22-30) mmol/L Glucose (74-99) mg/dL POC Glucose (mg/dL) 178 H (70-110) mg/dL Troponin I 0.367 H* (0.000-0.034) ng/mL 07/22/24 07/22/24 07/22/24 Range/Units 17:59 18:00 20:15 WBC (3.8-10.6) k/uL RBC (3.80-5.40) m/uL MCV (80.0-100.0) fL MCH (25.0-35.0) pg Neutrophils # (1.3-7.7) k/uL Macrocytosis APTT 44.0 H (22.0-30.0) sec ABG pH (7.35-7.45) ABG pO2 (83-108) mmHg ABG HCO3 (21-25) mmol/L ABG Total CO2 (19-24) mmol/L ABG O2 Saturation (94-97) % Potassium (3.5-5.1) mmol/L Chloride (98-107) mmol/L Carbon Dioxide (22-30) mmol/L Glucose (74-99) mg/dL POC Glucose (mg/dL) 155 H (70-110) mg/dL Troponin I 0.225 H* (0.000-0.034) ng/mL 07/22/24 07/22/24 07/23/24 Range/Units 20:15 23:51 04:40 WBC (3.8-10.6) k/uL RBC (3.80-5.40) m/uL MCV (80.0-100.0) fL MCH (25.0-35.0) pg Neutrophils # (1.3-7.7) k/uL Macrocytosis APTT (22.0-30.0) sec ABG pH 7.57 H* (7.35-7.45) ABG pO2 55 L* (83-108) mmHg ABG HCO3 36 H (21-25) mmol/L ABG Total CO2 38 H (19-24) mmol/L ABG O2 Saturation 91.3 L (94-97) % Potassium 3.4 L (3.5-5.1) mmol/L Chloride (98-107) mmol/L Carbon Dioxide (22-30) mmol/L Glucose (74-99) mg/dL POC Glucose (mg/dL) 199 H (70-110) mg/dL Troponin I (0.000-0.034) ng/mL 07/23/24 07/23/24 07/23/24 Range/Units 05:08 05:08 05:23 WBC 12.6 H (3.8-10.6) k/uL RBC 3.49 L (3.80-5.40) m/uL MCV 114.5 H (80.0-100.0) fL MCH 38.2 H (25.0-35.0) pg Neutrophils # 8.6 H (1.3-7.7) k/uL Macrocytosis Marked A APTT 34.0 H (22.0-30.0) sec ABG pH (7.35-7.45) ABG pO2 (83-108) mmHg ABG HCO3 (21-25) mmol/L ABG Total CO2 (19-24) mmol/L ABG O2 Saturation (94-97) % Potassium 3.3 L (3.5-5.1) mmol/L Chloride 95 L (98-107) mmol/L Carbon Dioxide 37 H (22-30) mmol/L Glucose 202 H (74-99) mg/dL POC Glucose (mg/dL) (70-110) mg/dL Troponin I (0.000-0.034) ng/mL 07/23/24 Range/Units 05:52 WBC (3.8-10.6) k/uL RBC (3.80-5.40) m/uL MCV (80.0-100.0) fL MCH (25.0-35.0) pg Neutrophils # (1.3-7.7) k/uL Macrocytosis APTT (22.0-30.0) sec ABG pH (7.35-7.45) ABG pO2 (83-108) mmHg ABG HCO3 (21-25) mmol/L ABG Total CO2 (19-24) mmol/L ABG O2 Saturation (94-97) % Potassium (3.5-5.1) mmol/L Chloride (98-107) mmol/L Carbon Dioxide (22-30) mmol/L Glucose (74-99) mg/dL POC Glucose (mg/dL) 202 H (70-110) mg/dL Troponin I (0.000-0.034) ng/mL Microbiology - Last 24 Hours (Table) 07/22/24 05:00 Gram Stain - Preliminary Sputum
[2024-07-23] MEDS: methylPREDNISolone SOD SUCCI 125 MG/2 ML VIAL IV SCH (11:39)
[2024-07-23] MEDS: ASPIRIN 81 MG PO SCH (11:39)
[2024-07-23 11:48] LABS: Glucose,Whole Blood 232 mg/dL (70-110)
[2024-07-23] MEDS ORDERED: DEXTROSE 50% SYRINGE 50 ML IVP PRN ×3 (12:18→21:01)
[2024-07-23] MEDS: INSULIN ASPART (NovoLOG) 100 UNIT/ML VIAL SQ SCH (12:30)
[2024-07-23 17:38] LABS: Glucose,Whole Blood 354 mg/dL (70-110)
[2024-07-23 17:40] LABS: Glucose,Whole Blood 375 mg/dL (70-110)
[2024-07-23 20:18] LABS: Glucose,Whole Blood 364 mg/dL (70-110)
[2024-07-23 20:49] LABS: Glucose,Whole Blood 348 mg/dL (70-110)
[2024-07-23] MEDS: ATORVASTATIN 40 MG TAB PO SCH (21:05)
[2024-07-23 21:36] LABS: Glucose,Whole Blood 409 mg/dL (70-110)
[2024-07-23] MEDS: INSULIN REGULAR 100 UNIT in SODIUM CHLORIDE 0.9% 100 ML IV SCH (21:37)
[2024-07-23 22:47] LABS: Glucose,Whole Blood 268 mg/dL (70-110)
[2024-07-23 23:51] LABS: Glucose,Whole Blood 229 mg/dL (70-110)
[2024-07-24 00:49] LABS: Glucose,Whole Blood 211 mg/dL (70-110)
[2024-07-24 01:53] LABS: Glucose,Whole Blood 228 mg/dL (70-110)
[2024-07-24 02:59] LABS: Glucose,Whole Blood 241 mg/dL (70-110)
[2024-07-24 03:57] LABS: Glucose,Whole Blood 256 mg/dL (70-110)
[2024-07-24 05:00] LABS: Glucose,Whole Blood 237 mg/dL (70-110)
[2024-07-24 05:02] LABS: HCT 40.2 % (34.0-46.0); Hypochromasia Slight; MCH 37.8 pg (25.0-35.0); MCHC 32.4 g/dL (31.0-37.0); MCV 116.7 fL (80.0-100.0); Mean Platelet Volume 10.5; Platelet Count 224 k/uL (150-450); RBC 3.45 m/uL (3.80-5.40); RDW 13.1 % (11.5-15.5); WBC 15.1 k/uL (3.8-10.6)
[2024-07-24 05:04] LABS: Macrocytosis Marked
[2024-07-24 05:21] LABS: ABG Base Excess 8.7 mmol/L; ABG HCO3 32 mmol/L (21-25); ABG Oxygen Saturation 94.2 % (94-97); ABG PCO2 40 mmHg (35-45); ABG PH 7.52 (7.35-7.45); ABG PO2 66 mmHg (83-108); ABG TCO2 34 mmol/L (19-24)
[2024-07-24 05:26] LABS: Allen Test Performed? no
[2024-07-24 05:56] LABS: Chloride 101 mmol/L (98-107)
[2024-07-24 05:59] LABS: African American GFR (CKD) >90 (>60 ml/min/1.73 sqM); Anion Gap 6 mmol/L; Blood Urea Nitrogen 27 mg/dL (7-17); Calcium 9.9 mg/dL (8.4-10.2); Carbon Dioxide 34 mmol/L (22-30); Glucose 254 mg/dL (74-99); Non-African American GFR(CKD) 90 (>60 ml/min/1.73 sqM); Potassium 3.6 mmol/L (3.5-5.1); Sodium 141 mmol/L (137-145)
[2024-07-24 05:59] LABS: Glucose,Whole Blood 208 mg/dL (70-110)
[2024-07-24 06:54] LABS: Glucose,Whole Blood 238 mg/dL (70-110)
[2024-07-24 08:00] LABS: Glucose,Whole Blood 255 mg/dL (70-110)
[2024-07-24] MEDS: POTASSIUM BICARBONATE/CIT AC 20 MEQ TABLET.EFF NG-TUBE SCH ×2 (08:52→15:56)
[2024-07-24 09:04] LABS: Glucose,Whole Blood 206 mg/dL (70-110)
[2024-07-24] MEDS: FUROSEMIDE 10 MG/ML 4 ML VIAL IV STA (09:32)
[2024-07-24 10:01] LABS: Glucose,Whole Blood 200 mg/dL (70-110)
--- NOTE | 2024-07-24 10:54 | XR ---
EXAMINATION TYPE: XR chest 1V portable DATE OF EXAM: 07/24/2024 Comparison: 07/23/2024 Clinical History: 54 year-old female tube placement Findings: Left subclavian CVC tip in the right atrium. ET and NG tubes are satisfactory. Heart upper limits of normal in size. Mild interstitial density slightly increased in the interval. Patchy retrocardiac opa city. No sizable pleural effusion. Impression: Mild diffuse interstitial density has increased. Ongoing patchy retrocardiac opacity. [facility], , 07/24/2024 10:51 AM
--- NOTE | 2024-07-24 10:56 | P.PN ---
Subjective Progress Note Date: 07/24/24 This is a 54-year-old female patient with a past medical history significant for hypertension and COPD who requested to see in the ICU for further evaluation after change in mental status and what it seems to be "asystole" on the floor. The patient currently is intubated on mechanical ventilation and history was taken from the chart. The patient presented and was admitted to the hospital with COVID-related symptoms. Subsequently she was on the floor when she developed change in mental status and "asystole". No further details and no documentation of any asystole at this point. Subsequently the patient was intubated and placed on mechanical ventilation and she was brought to the intensive care unit. There was a concern about pulmonary edema and she was given Lasix. She underwent further evaluation including a chest x-ray which showed pulmonary vascular congestions and NT proBNP came in to be elevated troponin came in to be unremarkable and the rest of the blood work overall came in to be unremarkable including CBC and BMP. The EKG showed sinus mechanism with diffuse nonspecific ST and T wave abnormalities. No history of coronary artery disease or congestive heart failure or cardiac arrhythmia the patient never seen by a electronic masking system operator in the past. She does have hypertension and COPD. The physical examination is remarkable for regular rhythm with a soft systolic murmur at the right upper sternal border with diminished breathing sounds bilaterally and bilateral rhonchi and mild bilateral lower extremities edema noted. July 23, 2024 The patient was seen and evaluated this morning which she continues to be intubated on mechanical ventilation. She is still on small dose of norepinephrine. Otherwise she has been maintaining normal sinus mechanism. The echo showed mild cardiomyopathy with EF around 45% with global hypokinesia. The troponin came to be mildly elevated and she was started on heparin and I would continue that for additional 24-hour and total of 48 hours. Otherwise she is on aspirin. Am going to add statin to the current medical regimen which she is on lisinopril. The physical examination is remarkable for regular rhythm with a systolic murmur and diminished breathing sounds bilaterally and no edema was noted. The chest x-ray was reviewed. The blood work was reviewed. July 24, 2024 The patient was seen and evaluated this morning which she continues to be intubated on mechanical ventilation. She is on small dose of norepinephrine and at the same time she is on lisinopril. And going to stop the lisinopril. Her heart rate continues to be in the 50s and 60s. The chest x-ray did not show any acute abnormalities. Blood work showed stable hemoglobin and stable kidney function and electrolytes beside borderline low potassium. The physical examination is remarkable for regular rhythm with a soft systolic murmur and diminished breathing sounds bilaterally and no edema was noted in the lower extremities Assessment Cardiopulmonary arrest with "asystole" Acute hypoxic respiratory failure Heart failure of unknown etiology at this point Low blood pressure requiring norepinephrine COPD Evidence of myocardial injury Mild cardiomyopathy Plan Continue the current medical regimen including aspirin and statin DC heparin since it has been more than 48 hours since she had the event DC lisinopril Try to wean the patient from norepinephrine Follow-up on the repeated echocardiogram Consider ruling out severe CAD Follow-up with the patient Objective - Vital Signs Vital signs: Vital Signs Temp 98.6 F 07/24/24 08:00 Pulse 68 07/24/24 10:15 Resp 22 07/24/24 10:15 BP 100/66 07/24/24 10:15 Pulse Ox 93 L 07/24/24 10:15 FiO2 60 07/24/24 08:20 Intake & Output 07/23/24 07/24/24 07/24/24 18:59 06:59 18:59 Intake Total 1427.196 991.037 512.880 Output Total 1120 645 145 Balance 307.196 346.037 367.880 Weight 74.4 kg Intake: IV 220 20 60 Sodium Chloride 0.9% 1, 220 20 60 000 ml @ 20 mls/hr IV . Q24H JESSICA Rx#:[id number] Intake, IV Titration 472.196 257.037 452.880 Amount Heparin Sod,Pork in 0.45% 101.023 218.038 NaCl 25,000 unit In 0.45 % NaCl 1 250ml.bag @ 12 UNITS/KG/HR 9.132 mls/hr IV .Q24H JESSICA Rx#: [id number] Insulin Regular 100 unit 49.083 13.35 In Sodium Chloride 0.9% 100 ml @ Titrate IV .Q0M JESSICA Rx#:[id number] Midazolam HCl 50 mg In 48.717 80.416 Sodium Chloride 0.9% 40 ml @ 1 MG/HR 1 mls/hr IV .Q24H JESSICA Rx#:[id number] Norepinephrine 4 mg In 65.624 66.311 109.088 Sodium Chloride 0.9% 250 ml @ 0.03 MCG/KG/MIN 8. 243 mls/hr IV .Q24H JESSICA Rx#:[id number] Piperacillin-Tazobactam 3 200 100 .375 gm In Sodium Chloride 0.9% 100 ml @ 25 mls/hr IVPB Q8HR JESSICA Rx# :[id number] propofoL 1,000 mg In 56.832 61.227 12.404 Empty Bag 1 bag @ 15 MCG/ KG/MIN 6.491 mls/hr IV . [id number] JESSICA Rx#:[id number] Tube Feeding 515 624 Other 220 90 Output: Urine 1120 645 145 Other: Voiding Method Indwelling Catheter Indwelling Catheter Bedside Commode ABP, PAP, CO, CI - Last Documented Arterial Blood Pressure 95/35 - Labs CBC & Chem 7: 07/24/24 04:55 07/24/24 04:55 Labs: Abnormal Lab Results - Last 24 Hours (Table) 07/23/24 07/23/24 07/23/24 Range/Units 11:47 15:45 17:36 WBC (3.8-10.6) k/uL RBC (3.80-5.40) m/uL MCV (80.0-100.0) fL MCH (25.0-35.0) pg Macrocytosis APTT 39.6 H (22.0-30.0) sec ABG pH (7.35-7.45) ABG pO2 (83-108) mmHg ABG HCO3 (21-25) mmol/L ABG Total CO2 (19-24) mmol/L Carbon Dioxide (22-30) mmol/L BUN (7-17) mg/dL Glucose (74-99) mg/dL POC Glucose (mg/dL) 232 H 354 H (70-110) mg/dL Hemoglobin A1c (<=6.0) % 07/23/24 07/23/24 07/23/24 Range/Units 17:38 20:17 20:48 WBC (3.8-10.6) k/uL RBC (3.80-5.40) m/uL MCV (80.0-100.0) fL MCH (25.0-35.0) pg Macrocytosis APTT (22.0-30.0) sec ABG pH (7.35-7.45) ABG pO2 (83-108) mmHg ABG HCO3 (21-25) mmol/L ABG Total CO2 (19-24) mmol/L Carbon Dioxide (22-30) mmol/L BUN (7-17) mg/dL Glucose (74-99) mg/dL POC Glucose (mg/dL) 375 H 364 H 348 H (70-110) mg/dL Hemoglobin A1c (<=6.0) % 07/23/24 07/23/24 07/23/24 Range/Units 21:34 22:45 23:49 WBC (3.8-10.6) k/uL RBC (3.80-5.40) m/uL MCV (80.0-100.0) fL MCH (25.0-35.0) pg Macrocytosis APTT (22.0-30.0) sec ABG pH (7.35-7.45) ABG pO2 (83-108) mmHg ABG HCO3 (21-25) mmol/L ABG Total CO2 (19-24) mmol/L Carbon Dioxide (22-30) mmol/L BUN (7-17) mg/dL Glucose (74-99) mg/dL POC Glucose (mg/dL) 409 H 268 H 229 H (70-110) mg/dL Hemoglobin A1c (<=6.0) % 07/23/24 07/24/24 07/24/24 Range/Units 23:50 00:47 01:52 WBC (3.8-10.6) k/uL RBC (3.80-5.40) m/uL MCV (80.0-100.0) fL MCH (25.0-35.0) pg Macrocytosis APTT 75.6 H (22.0-30.0) sec ABG pH (7.35-7.45) ABG pO2 (83-108) mmHg ABG HCO3 (21-25) mmol/L ABG Total CO2 (19-24) mmol/L Carbon Dioxide (22-30) mmol/L BUN (7-17) mg/dL Glucose (74-99) mg/dL POC Glucose (mg/dL) 211 H 228 H (70-110) mg/dL Hemoglobin A1c (<=6.0) % 0907/24/24 07/24/24 Range/Units 02:57 03:56 04:55 WBC (3.8-10.6) k/uL RBC (3.80-5.40) m/uL MCV (80.0-100.0) fL MCH (25.0-35.0) pg Macrocytosis APTT (22.0-30.0) sec ABG pH (7.35-7.45) ABG pO2 (83-108) mmHg ABG HCO3 (21-25) mmol/L ABG Total CO2 (19-24) mmol/L Carbon Dioxide (22-30) mmol/L BUN (7-17) mg/dL Glucose (74-99) mg/dL POC Glucose (mg/dL) 241 H 256 H (70-110) mg/dL Hemoglobin A1c 6.1 H (<=6.0) % 07/24/24 07/24/24 07/24/24 Range/Units 04:55 04:55 04:58 WBC 15.1 H (3.8-10.6) k/uL RBC 3.45 L (3.80-5.40) m/uL MCV 116.7 H (80.0-100.0) fL MCH 37.8 H (25.0-35.0) pg Macrocytosis Marked A APTT (22.0-30.0) sec ABG pH (7.35-7.45) ABG pO2 (83-108) mmHg ABG HCO3 (21-25) mmol/L ABG Total CO2 (19-24) mmol/L Carbon Dioxide 34 H (22-30) mmol/L BUN 27 H (7-17) mg/dL Glucose 254 H (74-99) mg/dL POC Glucose (mg/dL) 237 H (70-110) mg/dL Hemoglobin A1c (<=6.0) % 07/24/24 07/24/24 07/24/24 Range/Units 05:02 05:17 05:58 WBC (3.8-10.6) k/uL RBC (3.80-5.40) m/uL MCV (80.0-100.0) fL MCH (25.0-35.0) pg Macrocytosis APTT 75.0 H (22.0-30.0) sec ABG pH 7.52 H (7.35-7.45) ABG pO2 66 L (83-108) mmHg ABG HCO3 32 H (21-25) mmol/L ABG Total CO2 34 H (19-24) mmol/L Carbon Dioxide (22-30) mmol/L BUN (7-17) mg/dL Glucose (74-99) mg/dL POC Glucose (mg/dL) 208 H (70-110) mg/dL Hemoglobin A1c (<=6.0) % 07/24/24 07/24/24 07/24/24 Range/Units 06:52 07:58 09:02 WBC (3.8-10.6) k/uL RBC (3.80-5.40) m/uL MCV (80.0-100.0) fL MCH (25.0-35.0) pg Macrocytosis APTT (22.0-30.0) sec ABG pH (7.35-7.45) ABG pO2 (83-108) mmHg ABG HCO3 (21-25) mmol/L ABG Total CO2 (19-24) mmol/L Carbon Dioxide (22-30) mmol/L BUN (7-17) mg/dL Glucose (74-99) mg/dL POC Glucose (mg/dL) 238 H 255 H 206 H (70-110) mg/dL Hemoglobin A1c (<=6.0) % 07/24/24 Range/Units 10:00 WBC (3.8-10.6) k/uL RBC (3.80-5.40) m/uL MCV (80.0-100.0) fL MCH (25.0-35.0) pg Macrocytosis APTT (22.0-30.0) sec ABG pH (7.35-7.45) ABG pO2 (83-108) mmHg ABG HCO3 (21-25) mmol/L ABG Total CO2 (19-24) mmol/L Carbon Dioxide (22-30) mmol/L BUN (7-17) mg/dL Glucose (74-99) mg/dL POC Glucose (mg/dL) 200 H (70-110) mg/dL Hemoglobin A1c (<=6.0) % Microbiology - Last 24 Hours (Table) 07/22/24 05:00 Gram Stain - Final Sputum Sputum Culture - Final 07/17/24 22:22 Blood Culture - Final Blood
[2024-07-24 11:05] LABS: Glucose,Whole Blood 172 mg/dL (70-110)
[2024-07-24 11:57] LABS: Glucose,Whole Blood 200 mg/dL (70-110)
--- NOTE | 2024-07-24 12:08 | P.PN ---
Subjective Progress Note Date: 07/24/24 Principal diagnosis: Acute COVID-19 infection and cardiopulmonary arrest This is a 54-year-old female patient with a history of chronic obstructive pulmonary disease, chronic and ongoing tobacco dependence, fibromyalgia, hypertension, bipolar disorder, anxiety who presented here to the emergency room on 07/17/2024 with multiple complaints including burning with urination, cough congestion weakness. Tmax of 102.4. She was found to have a COVID-19 infection. She was found to be hypoxemic. She is on 4 L nasal cannula now. She is febrile. Count 9.6. Hemoglobin 12.2. Platelets 180. D-dimer 1.00. Sodium 142. Potassium 4.0. Bicarb 20. BUN 11. Creatinine 0.7. Glucose 158. AST 144. ALT 102. proBNP 4830. Troponin negative x 1. Procalcitonin negative at 0.20. She is initiated on Decadron and vitamin supplements. She is seen today July 21, 2024 in follow-up after developing increasing shortness of breath. She is maintaining O2 saturations in the 90s on 4 L/min per nasal cannula. Patient was evaluated today on 07/22/2024, I saw this patient yesterday for her COVID-19 infection, patient was more symptomatic than expected based on her physical examination, hence I recommended a CT angiogram of the chest which came back negative for pulmonary embolism, it did show evidence of scattered airspace opacities consistent with pneumonia, multifocal groundglass opacities were also noted. There is also evidence of small bilateral pleural effusions. During my evaluation, patient was on 4 L nasal cannula, and did not seem to be in distress. at 20:22 on 07/21 patient had a sudden episode of unresponsiveness. According to the nurse patient was unresponsive and pulseless. CODE BLUE was immediately activated and CPR was initiated. Apparently she was in asystole patient received 1 dose of epinephrine, went into ventricular fibrillation and she received 1 shock at 120 J. Another V-fib episode was noted shortly after and 200 J were delivered. Patient had subsequent return of spontaneous circulation at 2027. In the meantime the patient was intubated by SCHOOL BUS DRIVER/CUSTODIAN and she was sent to the ICU, and I was notified about the patient that she is in the U. Discussed the vent settings the ABG reviewed her chest x-ray which clearly showed evidence of pulmonary edema or possibly aspiration pneumonia I recommended Lasix, and I also recommended antibiotic which was started in the form of Zosyn. Patient is now in the ICU. She is on assist-control rate of 20 tidal volume 450 FiO2 100% and PEEP of 8 ABG showed a pO2 of 108 pCO2 34 pH of 7.59. Echocardiogram this morning showed global systolic dysfunction, ejection fraction estimated to be 45%. Patient was also noted to have mild aortic regurgitation. Troponin today is 0.592, patient was seen by cardiology, EKG showed diffuse nonspecific ST and T wave changes and the recommendation is to continue Lasix specially with her LV dysfunction. BNP level is pending, Lasix dose was increased after reviewing her chest x-ray from 20 mg to 40 mg IV push every 8 hours. Patient is also on heparin. And she is on antibiotics in the form of Zosyn. Patient is also on the COVID-19 cocktail, the findings on her chest x-ray are clinically not findings of COVID-19 pneumonia labs today showed WBC of 7.7 hemoglobin 12.8 procalcitonin level on admission was 0.2, basically unremarkable. Her basic metabolic profile is normal renal profile is normal potassium is a bit low at 3.3 being addressed accordingly Patient was seen today on 07/23/2024, remains in the ICU intubated and mechanically ventilated. Patient is on assist-control rate of 16 tidal volume 450 FiO2 60% PEEP of 12 ABG remains marginal with a pO2 of 55 pCO2 40 pH of 7.57 chest x-ray is showing significant improvement in her infiltrates/pulmonary edema over the last 24 hours, patient has been left on Lasix all along. Patient is requiring a small dose of norepinephrine for low blood pressure norepinephrine at 0.04 mcg/kg/min today I recommended holding the Lasix and starting IV fluid at 125 cc per hour. Patient remains on propofol at 25 mcg/kg/min and Versed at 5 mg/h. Today I am recommending that we taper and discontinue propofol, and maintain the patient on Versed even if we have to increase the dose. Steroids while she was on Decadron, and I am recommending Solu-Medrol I am also recommended that we continue Zosyn. Lasix is now on hold. Heparin still on board as ordered by cardiology. Echocardiogram did show evidence of mild LV dysfunction chest x-ray improved with diuretics. WBC 12.6 hemoglobin 13.4. PTT was 34 today. Heparin was placed on hold temporarily until a line was placed/triple-lumen catheter and will be restarted renal profile is normal potassium is a bit low at 3.3 being addressed accordingly Patient was reevaluated today on 07/24/2024, remains in the ICU, intubated and mechanically ventilated, ABG is marginal at best. Remains on assist-control rate of 16 tidal volume 450 FiO2 60% PEEP of 12 ABG showed a pO2 of 66 pCO2 40 pH of 7.52. Patient remains on heparin also on insulin at 5 units/h, Versed at 5 mg/h norepinephrine 0.03 mcg/kg/min, propofol 20 mcg/kg/min, remains on vital AF at 20 cc/h, patient is also receiving Zosyn empirically. She did receive Lasix this morning 40 mg IV push as her chest x-ray is showing slight worsening of her interstitial edema/infiltrates WBC is 15.1 hemoglobin is 13. Basic metabolic profile is normal bicarb is 34 BUN is 27 creatinine 0.76 blood sugar is 200 Objective - Vital Signs Vital signs: Vital Signs Temp 98.6 F 07/24/24 08:00 Pulse 57 L 07/24/24 11:00 Resp 18 07/24/24 11:00 BP 107/64 07/24/24 11:00 Pulse Ox 91 L 07/24/24 11:00 FiO2 60 07/24/24 11:14 Intake & Output 07/23/24 07/24/24 07/24/24 18:59 06:59 18:59 Intake Total 1427.196 991.037 895.322 Output Total 1120 645 535 Balance 307.196 346.037 360.322 Weight 74.4 kg Intake: IV 220 20 80 Sodium Chloride 0.9% 1, 220 20 80 000 ml @ 20 mls/hr IV . Q24H JESSICA Rx#:[id number] Intake, IV Titration 472.196 257.037 493.322 Amount Heparin Sod,Pork in 0.45% 101.023 218.038 NaCl 25,000 unit In 0.45 % NaCl 1 250ml.bag @ 12 UNITS/KG/HR 9.132 mls/hr IV .Q24H JESSICA Rx#: [id number] Insulin Regular 100 unit 49.083 31.90 In Sodium Chloride 0.9% 100 ml @ Titrate IV .Q0M JESSICA Rx#:[id number] Midazolam HCl 50 mg In 48.717 80.416 Sodium Chloride 0.9% 40 ml @ 1 MG/HR 1 mls/hr IV .Q24H JESSICA Rx#:[id number] Norepinephrine 4 mg In 65.624 66.311 130.980 Sodium Chloride 0.9% 250 ml @ 0.03 MCG/KG/MIN 8. 243 mls/hr IV .Q24H JESSICA Rx#:[id number] Piperacillin-Tazobactam 3 200 100 .375 gm In Sodium Chloride 0.9% 100 ml @ 25 mls/hr IVPB Q8HR JESSICA Rx# :[id number] propofoL 1,000 mg In 56.832 61.227 12.404 Empty Bag 1 bag @ 15 MCG/ KG/MIN 6.491 mls/hr IV . [id number] JESSICA Rx#:[id number] Tube Feeding 515 624 192 Other 220 90 130 Output: Urine 1120 645 535 Other: Voiding Method Indwelling Catheter Indwelling Catheter Bedside Commode ABP, PAP, CO, CI - Last Documented Arterial Blood Pressure 101/50 - Exam GENERAL EXAM: 54-year-old female intubated mechanically ventilated sedated in no distress HEAD: Normocephalic. EYES: Normal reaction of pupils, equal size. NOSE: Clear with pink turbinates. THROAT: No erythema or exudates. Endotracheal tube and orogastric tube are intact NECK: No masses, no JVD. CHEST: No chest wall deformity. LUNGS: Fine crackles at the bases no rhonchi no wheezes CVS: S1 and S2 normal with 2/6 systolic murmur throughout the precordium. ABDOMEN: No hepatosplenomegaly, normal bowel sounds, no guarding or rigidity. SKIN: No rashes, multiple tattoos noted. CENTRAL NERVOUS SYSTEM: Cannot assess patient is fully sedated EXTREMITIES: No clubbing edema or cyanosis, good pulses bilaterally. - Labs CBC & Chem 7: 07/24/24 04:55 07/24/24 04:55 Labs: Abnormal Lab Results - Last 24 Hours (Table) 07/23/24 07/23/24 07/23/24 Range/Units 15:45 17:36 17:38 WBC (3.8-10.6) k/uL RBC (3.80-5.40) m/uL MCV (80.0-100.0) fL MCH (25.0-35.0) pg Macrocytosis APTT 39.6 H (22.0-30.0) sec ABG pH (7.35-7.45) ABG pO2 (83-108) mmHg ABG HCO3 (21-25) mmol/L ABG Total CO2 (19-24) mmol/L Carbon Dioxide (22-30) mmol/L BUN (7-17) mg/dL Glucose (74-99) mg/dL POC Glucose (mg/dL) 354 H 375 H (70-110) mg/dL Hemoglobin A1c (<=6.0) % 07/23/24 07/23/24 07/23/24 Range/Units 20:17 20:48 21:34 WBC (3.8-10.6) k/uL RBC (3.80-5.40) m/uL MCV (80.0-100.0) fL MCH (25.0-35.0) pg Macrocytosis APTT (22.0-30.0) sec ABG pH (7.35-7.45) ABG pO2 (83-108) mmHg ABG HCO3 (21-25) mmol/L ABG Total CO2 (19-24) mmol/L Carbon Dioxide (22-30) mmol/L BUN (7-17) mg/dL Glucose (74-99) mg/dL POC Glucose (mg/dL) 364 H 348 H 409 H (70-110) mg/dL Hemoglobin A1c (<=6.0) % 07/23/24 07/23/24 07/23/24 Range/Units 22:45 23:49 23:50 WBC (3.8-10.6) k/uL RBC (3.80-5.40) m/uL MCV (80.0-100.0) fL MCH (25.0-35.0) pg Macrocytosis APTT 75.6 H (22.0-30.0) sec ABG pH (7.35-7.45) ABG pO2 (83-108) mmHg ABG HCO3 (21-25) mmol/L ABG Total CO2 (19-24) mmol/L Carbon Dioxide (22-30) mmol/L BUN (7-17) mg/dL Glucose (74-99) mg/dL POC Glucose (mg/dL) 268 H 229 H (70-110) mg/dL Hemoglobin A1c (<=6.0) % 07/24/24 07/24/24 07/24/24 Range/Units 00:47 01:52 02:57 WBC (3.8-10.6) k/uL RBC (3.80-5.40) m/uL MCV (80.0-100.0) fL MCH (25.0-35.0) pg Macrocytosis APTT (22.0-30.0) sec ABG pH (7.35-7.45) ABG pO2 (83-108) mmHg ABG HCO3 (21-25) mmol/L ABG Total CO2 (19-24) mmol/L Carbon Dioxide (22-30) mmol/L BUN (7-17) mg/dL Glucose (74-99) mg/dL POC Glucose (mg/dL) 211 H 228 H 241 H (70-110) mg/dL Hemoglobin A1c (<=6.0) % 07/24/24 07/24/24 07/24/24 Range/Units 03:56 04:55 04:55 WBC (3.8-10.6) k/uL RBC (3.80-5.40) m/uL MCV (80.0-100.0) fL MCH (25.0-35.0) pg Macrocytosis APTT (22.0-30.0) sec ABG pH (7.35-7.45) ABG pO2 (83-108) mmHg ABG HCO3 (21-25) mmol/L ABG Total CO2 (19-24) mmol/L Carbon Dioxide 34 H (22-30) mmol/L BUN 27 H (7-17) mg/dL Glucose 254 H (74-99) mg/dL POC Glucose (mg/dL) 256 H (70-110) mg/dL Hemoglobin A1c 6.1 H (<=6.0) % 07/24/24 07/24/24 07/24/24 Range/Units 04:55 04:58 05:02 WBC 15.1 H (3.8-10.6) k/uL RBC 3.45 L (3.80-5.40) m/uL MCV 116.7 H (80.0-100.0) fL MCH 37.8 H (25.0-35.0) pg Macrocytosis Marked A APTT 75.0 H (22.0-30.0) sec ABG pH (7.35-7.45) ABG pO2 (83-108) mmHg ABG HCO3 (21-25) mmol/L ABG Total CO2 (19-24) mmol/L Carbon Dioxide (22-30) mmol/L BUN (7-17) mg/dL Glucose (74-99) mg/dL POC Glucose (mg/dL) 237 H (70-110) mg/dL Hemoglobin A1c (<=6.0) % 07/24/24 07/24/24 07/24/24 Range/Units 05:17 05:58 06:52 WBC (3.8-10.6) k/uL RBC (3.80-5.40) m/uL MCV (80.0-100.0) fL MCH (25.0-35.0) pg Macrocytosis APTT (22.0-30.0) sec ABG pH 7.52 H (7.35-7.45) ABG pO2 66 L (83-108) mmHg ABG HCO3 32 H (21-25) mmol/L ABG Total CO2 34 H (19-24) mmol/L Carbon Dioxide (22-30) mmol/L BUN (7-17) mg/dL Glucose (74-99) mg/dL POC Glucose (mg/dL) 208 H 238 H (70-110) mg/dL Hemoglobin A1c (<=6.0) % 07/24/24 07/24/24 07/24/24 Range/Units 07:58 09:02 10:00 WBC (3.8-10.6) k/uL RBC (3.80-5.40) m/uL MCV (80.0-100.0) fL MCH (25.0-35.0) pg Macrocytosis APTT (22.0-30.0) sec ABG pH (7.35-7.45) ABG pO2 (83-108) mmHg ABG HCO3 (21-25) mmol/L ABG Total CO2 (19-24) mmol/L Carbon Dioxide (22-30) mmol/L BUN (7-17) mg/dL Glucose (74-99) mg/dL POC Glucose (mg/dL) 255 H 206 H 200 H (70-110) mg/dL Hemoglobin A1c (<=6.0) % 07/24/24 07/24/24 Range/Units 11:03 11:55 WBC (3.8-10.6) k/uL RBC (3.80-5.40) m/uL MCV (80.0-100.0) fL MCH (25.0-35.0) pg Macrocytosis APTT (22.0-30.0) sec ABG pH (7.35-7.45) ABG pO2 (83-108) mmHg ABG HCO3 (21-25) mmol/L ABG Total CO2 (19-24) mmol/L Carbon Dioxide (22-30) mmol/L BUN (7-17) mg/dL Glucose (74-99) mg/dL POC Glucose (mg/dL) 172 H 200 H (70-110) mg/dL Hemoglobin A1c (<=6.0) % Microbiology - Last 24 Hours (Table) 07/22/24 05:00 Gram Stain - Final Sputum Sputum Culture - Final 07/17/24 22:22 Blood Culture - Final Blood Assessment and Plan Assessment: Impression: Acute hypoxic respiratory failure secondary to cardiac arrest requiring intubation mechanical ventilation Acute COVID-19 infection, doubt COVID-19 pneumonia Acute congestive heart failure, systolic in nature based on LV function/noted on echocardiogram with ejection fraction of 45%, BNP level is elevated Febrile illness secondary to above/COVID-19 infection Possible aspiration pneumonia Underlying chronic obstructive pulmonary disease, presently inactive Chronic ongoing tobacco dependence History of bipolar disorder History of fibromyalgia Generalized anxiety disorder Recommendation: Continue ventilatory support vent settings were not changed today. Continue hemodynamic support/norepinephrine Resume diuretics since her chest x-ray showed worsening of her interstitial edema today. Continue heparin as recommended by cardiology Enteral feeding/nutritional support achieve goal with nutritional support Continue steroids/Solu-Medrol Continue GI and DVT prophylaxis Continue propofol and Versed and titrate accordingly Continue to monitor daily x-rays of the chest and daily ABGs and address diuretics accordingly Patient remains critically ill, not ready for any weaning trials as her ABG remains marginal Critical care time is over 30 minutes Will continue to follow, prognosis is guarded Time with Patient: Greater than 30
[2024-07-24 13:15] LABS: Glucose,Whole Blood 145 mg/dL (70-110)
[2024-07-24 14:10] LABS: Glucose,Whole Blood 176 mg/dL (70-110)
[2024-07-24 15:02] LABS: Glucose,Whole Blood 183 mg/dL (70-110)
[2024-07-24 16:02] LABS: Glucose,Whole Blood 144 mg/dL (70-110)
[2024-07-24 18:14] LABS: Glucose,Whole Blood 164 mg/dL (70-110)
[2024-07-24 19:49] LABS: Glucose,Whole Blood 132 mg/dL (70-110)
[2024-07-24 21:06] LABS: Glucose,Whole Blood 195 mg/dL (70-110)
[2024-07-24 22:00] LABS: Glucose,Whole Blood 168 mg/dL (70-110)
[2024-07-24 23:11] LABS: Glucose,Whole Blood 171 mg/dL (70-110)
[2024-07-24 23:56] LABS: Glucose,Whole Blood 185 mg/dL (70-110)
[2024-07-25 01:03] LABS: Glucose,Whole Blood 193 mg/dL (70-110)
[2024-07-25 01:59] LABS: Glucose,Whole Blood 188 mg/dL (70-110)
[2024-07-25 03:10] LABS: Glucose,Whole Blood 202 mg/dL (70-110)
[2024-07-25 04:07] LABS: Glucose,Whole Blood 155 mg/dL (70-110)
[2024-07-25 05:00] LABS: Glucose,Whole Blood 155 mg/dL (70-110)
[2024-07-25 05:30] LABS: Basophils # (A) 0.1 k/uL (0-0.2); Basophils % (A) 0 %; Eosinophils % (A) 0 %; HCT 37.8 % (34.0-46.0); HGB 12.3 gm/dL (11.4-16.0); Lymphocytes # (A) 1.7 k/uL (1.0-4.8); Lymphocytes % (A) 9 %; MCHC 32.5 g/dL (31.0-37.0); MCV 116.8 fL (80.0-100.0); Mean Platelet Volume 11.2; Monocytes # (A) 0.7 k/uL (0-1.0); Monocytes % (A) 4 %; Neutrophils # (A) 15.5 k/uL (1.3-7.7); Neutrophils % (A) 85 %; Platelet Count 244 k/uL (150-450); RBC 3.23 m/uL (3.80-5.40); RDW 13.6 % (11.5-15.5); WBC 18.2 k/uL (3.8-10.6)
[2024-07-25 05:32] LABS: Macrocytosis Marked
[2024-07-25 05:36] LABS: ABG Base Excess 6.5 mmol/L; ABG HCO3 31 mmol/L (21-25); ABG Oxygen Saturation 96.8 % (94-97); ABG PCO2 42 mmHg (35-45); ABG PH 7.47 (7.35-7.45); ABG PO2 84 mmHg (83-108); ABG TCO2 32 mmol/L (19-24); Allen Test Performed? Yes
[2024-07-25 05:49] LABS: African American GFR (CKD) >90 (>60 ml/min/1.73 sqM); Anion Gap 8 mmol/L; Blood Urea Nitrogen 37 mg/dL (7-17); Calcium 9.8 mg/dL (8.4-10.2); Carbon Dioxide 30 mmol/L (22-30); Chloride 103 mmol/L (98-107); Glucose 149 mg/dL (74-99); Non-African American GFR(CKD) >90 (>60 ml/min/1.73 sqM); Sodium 141 mmol/L (137-145)
[2024-07-25 06:15] LABS: Glucose,Whole Blood 151 mg/dL (70-110)
[2024-07-25 06:53] LABS: Glucose,Whole Blood 162 mg/dL (70-110)
--- NOTE | 2024-07-25 08:25 | XR ---
EXAMINATION TYPE: XR chest 1V portable DATE OF EXAM: 07/25/2024 4:40 AM CLINICAL INDICATION: Female, 54 years old with history of mechanical ventilation; [facility] COMPARISON: Chest radiographs from TECHNIQUE: XR chest 1V portable Frontal view of the chest. FINDINGS: Lungs/Pleura: There is no evidence of pleural effusion, focal consolidation, or pneumothorax. Pulmonary vascularity: Unremarkable. Heart/mediastinum: Cardiomediastinal silhouette is unremarkable. Musculoskeletal: No acute osseous pathology. Other findings: None Lines/Tubes: Endotracheal tube with distal tip 40.0 cm above the alexys. Nasogastric tube with its distal tip and side-port projecting under the diaphragm. Left central venous catheter with distal tip at the cavoatrial junction. IMPRESSION: 1. Low lung volumes with a generalized hazy appearance which could represent atelectasis versus pulm onary edema correlate with serum BNP. 2. Support tubes and line in appropriate position. [facility], , 07/25/2024 8:23 AM
[2024-07-25 08:39] LABS: Glucose,Whole Blood 152 mg/dL (70-110)
[2024-07-25] MEDS ORDERED: DEXMEDETOMIDINE/0.9% NACL(PMX) 400 MCG in EMPTY BAG 1 BAG IV SCH (10:00)
[2024-07-25 11:39] LABS: Glucose,Whole Blood 141 mg/dL (70-110)
[2024-07-25 11:51] LABS: T4, Free (Free Thyroxine) 0.76 ng/dL (0.78-2.19)
--- NOTE | 2024-07-25 12:06 | P.PN ---
Subjective Progress Note Date: 07/25/24 Principal diagnosis: Acute COVID-19 infection and cardiopulmonary arrest This is a 54-year-old female patient with a history of chronic obstructive pulmonary disease, chronic and ongoing tobacco dependence, fibromyalgia, hypertension, bipolar disorder, anxiety who presented here to the emergency room on 07/17/2024 with multiple complaints including burning with urination, cough congestion weakness. Tmax of 102.4. She was found to have a COVID-19 infection. She was found to be hypoxemic. She is on 4 L nasal cannula now. She is febrile. Count 9.6. Hemoglobin 12.2. Platelets 180. D-dimer 1.00. Sodium 142. Potassium 4.0. Bicarb 20. BUN 11. Creatinine 0.7. Glucose 158. AST 144. ALT 102. proBNP 4830. Troponin negative x 1. Procalcitonin negative at 0.20. She is initiated on Decadron and vitamin supplements. She is seen today July 21, 2024 in follow-up after developing increasing shortness of breath. She is maintaining O2 saturations in the 90s on 4 L/min per nasal cannula. Patient was evaluated today on 07/22/2024, I saw this patient yesterday for her COVID-19 infection, patient was more symptomatic than expected based on her physical examination, hence I recommended a CT angiogram of the chest which came back negative for pulmonary embolism, it did show evidence of scattered airspace opacities consistent with pneumonia, multifocal groundglass opacities were also noted. There is also evidence of small bilateral pleural effusions. During my evaluation, patient was on 4 L nasal cannula, and did not seem to be in distress. at 20:22 on 07/21 patient had a sudden episode of unresponsiveness. According to the nurse patient was unresponsive and pulseless. CODE BLUE was immediately activated and CPR was initiated. Apparently she was in asystole patient received 1 dose of epinephrine, went into ventricular fibrillation and she received 1 shock at 120 J. Another V-fib episode was noted shortly after and 200 J were delivered. Patient had subsequent return of spontaneous circulation at 2027. In the meantime the patient was intubated by [employer] and she was sent to the ICU, and I was notified about the patient that she is in the U. Discussed the vent settings the ABG reviewed her chest x-ray which clearly showed evidence of pulmonary edema or possibly aspiration pneumonia I recommended Lasix, and I also recommended antibiotic which was started in the form of Zosyn. Patient is now in the ICU. She is on assist-control rate of 20 tidal volume 450 FiO2 100% and PEEP of 8 ABG showed a pO2 of 108 pCO2 34 pH of 7.59. Echocardiogram this morning showed global systolic dysfunction, ejection fraction estimated to be 45%. Patient was also noted to have mild aortic regurgitation. Troponin today is 0.592, patient was seen by cardiology, EKG showed diffuse nonspecific ST and T wave changes and the recommendation is to continue Lasix specially with her LV dysfunction. BNP level is pending, Lasix dose was increased after reviewing her chest x-ray from 20 mg to 40 mg IV push every 8 hours. Patient is also on heparin. And she is on antibiotics in the form of Zosyn. Patient is also on the COVID-19 cocktail, the findings on her chest x-ray are clinically not findings of COVID-19 pneumonia labs today showed WBC of 7.7 hemoglobin 12.8 procalcitonin level on admission was 0.2, basically unremarkable. Her basic metabolic profile is normal renal profile is normal potassium is a bit low at 3.3 being addressed accordingly Patient was seen today on 07/23/2024, remains in the ICU intubated and mechanically ventilated. Patient is on assist-control rate of 16 tidal volume 450 FiO2 60% PEEP of 12 ABG remains marginal with a pO2 of 55 pCO2 40 pH of 7.57 chest x-ray is showing significant improvement in her infiltrates/pulmonary edema over the last 24 hours, patient has been left on Lasix all along. Patient is requiring a small dose of norepinephrine for low blood pressure norepinephrine at 0.04 mcg/kg/min today I recommended holding the Lasix and starting IV fluid at 125 cc per hour. Patient remains on propofol at 25 mcg/kg/min and Versed at 5 mg/h. Today I am recommending that we taper and discontinue propofol, and maintain the patient on Versed even if we have to increase the dose. Steroids while she was on Decadron, and I am recommending Solu-Medrol I am also recommended that we continue Zosyn. Lasix is now on hold. Heparin still on board as ordered by cardiology. Echocardiogram did show evidence of mild LV dysfunction chest x-ray improved with diuretics. WBC 12.6 hemoglobin 13.4. PTT was 34 today. Heparin was placed on hold temporarily until a line was placed/triple-lumen catheter and will be restarted renal profile is normal potassium is a bit low at 3.3 being addressed accordingly Patient was reevaluated today on 07/24/2024, remains in the ICU, intubated and mechanically ventilated, ABG is marginal at best. Remains on assist-control rate of 16 tidal volume 450 FiO2 60% PEEP of 12 ABG showed a pO2 of 66 pCO2 40 pH of 7.52. Patient remains on heparin also on insulin at 5 units/h, Versed at 5 mg/h norepinephrine 0.03 mcg/kg/min, propofol 20 mcg/kg/min, remains on vital AF at 20 cc/h, patient is also receiving Zosyn empirically. She did receive Lasix this morning 40 mg IV push as her chest x-ray is showing slight worsening of her interstitial edema/infiltrates WBC is 15.1 hemoglobin is 13. Basic metabolic profile is normal bicarb is 34 BUN is 27 creatinine 0.76 blood sugar is 200 Progress note dated July 25, 2024. Patient was evaluated today, remains in the ICU is intubated and mechanically ventilated. Remains on assist-control rate of 16, tidal volume 450, FiO2 60%, PEEP 12. ABG shows pO2 84, pCO2 42, pH 7.47. Plan to decrease tidal volume.She remains on propofol at 30 mcg/kg/min, norepinephrine at 0.03 mcg/kg/min, Vital AF at 40cc/h with goal of 40, 0.9 NS at 20 mL per hr and Zosyn. Pro-Jesse has been ordered today, if negative Zosyn will be discontinued. Chest x-ray done today shows low lung volumes with generalized hazy appearance which could represent atelectasis versus pulmonary edema. As per cardiology non-epinephrine was weaned but the patient had to be put back on it. Cortisol and TSH have been ordered today. TSH is 0.158. Labs show WBC 18.2, hemoglobin 12.3, platelet 244, sodium 141, potassium 4, chloride 103, bicarb 30, BUN 37, creatinine 0.75, glucose 152, A1c 6.1. Objective - Vital Signs Vital signs: Vital Signs Temp 97.8 F 07/25/24 08:00 Pulse 59 L 07/25/24 09:00 Resp 16 09/16/24 09:00 BP 130/67 07/25/24 09:00 Pulse Ox 97 07/25/24 09:00 FiO2 60 07/25/24 11:06 Intake & Output 07/24/24 07/25/24 07/25/24 18:59 06:59 18:59 Intake Total 6803.680 1962.513 341.460 Output Total 1345 485 105 Balance 245.653 745.513 236.460 Weight 75.8 kg Intake: IV 220 240 140 Piperacillin-Tazobactam 3 100 .375 gm In Sodium Chloride 0.9% 100 ml @ 25 mls/hr IVPB Q8HR JESSICA Rx# :[id number] Sodium Chloride 0.9% 1, 220 240 40 000 ml @ 20 mls/hr IV . Q24H JESSICA Rx#:[id number] Intake, IV Titration 622.653 324.513 153.460 Amount Heparin Sod,Pork in 0.45% 218.038 NaCl 25,000 unit In 0.45 % NaCl 1 250ml.bag @ 12 UNITS/KG/HR 9.132 mls/hr IV .Q24H JESSICA Rx#: [id number] Insulin Regular 100 unit 47.025 84.942 In Sodium Chloride 0.9% 100 ml @ Titrate IV .Q0M JESSICA Rx#:[id number] Midazolam HCl 50 mg In 47.583 84.467 Sodium Chloride 0.9% 40 ml @ 1 MG/HR 1 mls/hr IV .Q24H JESSICA Rx#:[id number] Norepinephrine 4 mg In 146.827 134.636 Sodium Chloride 0.9% 250 ml @ 0.03 MCG/KG/MIN 8. 243 mls/hr IV .Q24H JESSICA Rx#:[id number] Piperacillin-Tazobactam 3 100 100 .375 gm In Sodium Chloride 0.9% 100 ml @ 25 mls/hr IVPB Q8HR JESSICA Rx# :[id number] propofoL 1,000 mg In 63.180 55.104 18.824 Empty Bag 1 bag @ 15 MCG/ KG/MIN 6.491 mls/hr IV . [id number] JESSICA Rx#:[id number] Tube Feeding 528 576 48 Other 220 90 Output: Urine 1345 485 105 Other: Voiding Method Indwelling Catheter Indwelling Catheter ABP, PAP, CO, CI - Last Documented Arterial Blood Pressure 102/50 - Exam GENERAL EXAM: Intubated and mechanically ventilated, sedated HEAD: Normocephalic. EYES: Normal reaction of pupils, equal size. NOSE: Clear with pink turbinates. THROAT: No erythema or exudates. Endotracheal tube and orogastric tube are intact NECK: No masses, no JVD. CHEST: No chest wall deformity. LUNGS: Diminished bilaterally CVS: S1 and S2 normal with soft systolic murmur ABDOMEN: No hepatosplenomegaly, normal bowel sounds, no guarding or rigidity. SKIN: No rashes, multiple tattoos noted. CENTRAL NERVOUS SYSTEM: Cannot assess patient is fully sedated EXTREMITIES: No clubbing edema or cyanosis - Labs CBC & Chem 7: 07/25/24 05:00 07/25/24 05:00 Labs: Abnormal Lab Results - Last 24 Hours (Table) 07/24/24 07/24/24 07/24/24 Range/Units 11:55 13:14 14:08 WBC (3.8-10.6) k/uL RBC (3.80-5.40) m/uL MCV (80.0-100.0) fL MCH (25.0-35.0) pg Neutrophils # (1.3-7.7) k/uL Macrocytosis ABG pH (7.35-7.45) ABG HCO3 (21-25) mmol/L ABG Total CO2 (19-24) mmol/L BUN (7-17) mg/dL Glucose (74-99) mg/dL POC Glucose (mg/dL) 200 H 145 H 176 H (70-110) mg/dL TSH (0.465-4.680) mIU/L 07/24/24 07/24/24 07/24/24 Range/Units 15:00 16:01 18:13 WBC (3.8-10.6) k/uL RBC (3.80-5.40) m/uL MCV (80.0-100.0) fL MCH (25.0-35.0) pg Neutrophils # (1.3-7.7) k/uL Macrocytosis ABG pH (7.35-7.45) ABG HCO3 (21-25) mmol/L ABG Total CO2 (19-24) mmol/L BUN (7-17) mg/dL Glucose (74-99) mg/dL POC Glucose (mg/dL) 183 H 144 H 164 H (70-110) mg/dL TSH (0.465-4.680) mIU/L 07/24/24 07/24/24 07/24/24 Range/Units 19:48 21:05 21:58 WBC (3.8-10.6) k/uL RBC (3.80-5.40) m/uL MCV (80.0-100.0) fL MCH (25.0-35.0) pg Neutrophils # (1.3-7.7) k/uL Macrocytosis ABG pH (7.35-7.45) ABG HCO3 (21-25) mmol/L ABG Total CO2 (19-24) mmol/L BUN (7-17) mg/dL Glucose (74-99) mg/dL POC Glucose (mg/dL) 132 H 195 H 168 H (70-110) mg/dL TSH (0.465-4.680) mIU/L 07/24/24 07/24/24 07/25/24 Range/Units 23:10 23:55 01:02 WBC (3.8-10.6) k/uL RBC (3.80-5.40) m/uL MCV (80.0-100.0) fL MCH (25.0-35.0) pg Neutrophils # (1.3-7.7) k/uL Macrocytosis ABG pH (7.35-7.45) ABG HCO3 (21-25) mmol/L ABG Total CO2 (19-24) mmol/L BUN (7-17) mg/dL Glucose (74-99) mg/dL POC Glucose (mg/dL) 171 H 185 H 193 H (70-110) mg/dL TSH (0.465-4.680) mIU/L 07/25/24 07/25/24 07/25/24 Range/Units 01:57 03:05 04:05 WBC (3.8-10.6) k/uL RBC (3.80-5.40) m/uL MCV (80.0-100.0) fL MCH (25.0-35.0) pg Neutrophils # (1.3-7.7) k/uL Macrocytosis ABG pH (7.35-7.45) ABG HCO3 (21-25) mmol/L ABG Total CO2 (19-24) mmol/L BUN (7-17) mg/dL Glucose (74-99) mg/dL POC Glucose (mg/dL) 188 H 202 H 155 H (70-110) mg/dL TSH (0.465-4.680) mIU/L 07/25/24 07/25/24 07/25/24 Range/Units 04:59 05:00 05:00 WBC 18.2 H (3.8-10.6) k/uL RBC 3.23 L (3.80-5.40) m/uL MCV 116.8 H (80.0-100.0) fL MCH 38.0 H (25.0-35.0) pg Neutrophils # 15.5 H (1.3-7.7) k/uL Macrocytosis Marked A ABG pH (7.35-7.45) ABG HCO3 (21-25) mmol/L ABG Total CO2 (19-24) mmol/L BUN 37 H (7-17) mg/dL Glucose 149 H (74-99) mg/dL POC Glucose (mg/dL) 155 H (70-110) mg/dL TSH (0.465-4.680) mIU/L 07/25/24 07/25/24 07/25/24 Range/Units 05:00 05:43 06:14 WBC (3.8-10.6) k/uL RBC (3.80-5.40) m/uL MCV (80.0-100.0) fL MCH (25.0-35.0) pg Neutrophils # (1.3-7.7) k/uL Macrocytosis ABG pH 7.47 H (7.35-7.45) ABG HCO3 31 H (21-25) mmol/L ABG Total CO2 32 H (19-24) mmol/L BUN (7-17) mg/dL Glucose (74-99) mg/dL POC Glucose (mg/dL) 151 H (70-110) mg/dL TSH 0.158 L (0.465-4.680) mIU/L 07/25/24 07/25/24 Range/Units 06:52 08:38 WBC (3.8-10.6) k/uL RBC (3.80-5.40) m/uL MCV (80.0-100.0) fL MCH (25.0-35.0) pg Neutrophils # (1.3-7.7) k/uL Macrocytosis ABG pH (7.35-7.45) ABG HCO3 (21-25) mmol/L ABG Total CO2 (19-24) mmol/L BUN (7-17) mg/dL Glucose (74-99) mg/dL POC Glucose (mg/dL) 162 H 152 H (70-110) mg/dL TSH (0.465-4.680) mIU/L Microbiology - Last 24 Hours (Table) 07/23/24 08:45 Blood Culture - Preliminary Blood 07/22/24 05:00 Gram Stain - Final Sputum Sputum Culture - Final Assessment and Plan Assessment: Acute hypoxic respiratory failure secondary to cardiac arrest Covid 19 pneumonia Febrile illness secondary to COVID-19 infection Underlying COPD Acute systolic congestive heart failure Chronic ongoing tobacco dependence History of bipolar disorder History of fibromyalgia Generalized anxiety disorder Plan: Continue ventilatory support , decrease tidal volume. Continue Zosyn Pro-Jesse, TSH and cortisol ordered. Plan to discontinue Zosyn if Pro-Jesse is negative. Continue albuterol inhaler 4 times daily as needed, Solu-Medrol 60 mg every 6 hours Norepinephrine 0.03 mg/kg/min Nutritional support- Vital AF at goal of 40. Aspirin 81 mg, atorvastatin 40 mg daily Quetiapine 300 mg at bedtime Continue to monitor daily x-rays of the chest and daily ABGs and address diuretics accordingly GI prophylaxis: Pantoprazole 40 mg daily Heparin discontinued per cardiology Will continue to follow, prognosis is guarded Critical care time is over 30 minutes Time with Patient: Greater than 30
[2024-07-25 13:05] LABS: Glucose,Whole Blood 147 mg/dL (70-110)
[2024-07-25 15:50] LABS: Glucose,Whole Blood 123 mg/dL (70-110)
--- NOTE | 2024-07-25 16:26 | P.PN ---
Subjective Progress Note Date: 07/25/24 This is a 54-year-old female patient with a past medical history significant for hypertension and COPD who requested to see in the ICU for further evaluation after change in mental status and what it seems to be "asystole" on the floor. The patient currently is intubated on mechanical ventilation and history was taken from the chart. The patient presented and was admitted to the hospital with COVID-related symptoms. Subsequently she was on the floor when she developed change in mental status and "asystole". No further details and no documentation of any asystole at this point. Subsequently the patient was intubated and placed on mechanical ventilation and she was brought to the intensive care unit. There was a concern about pulmonary edema and she was given Lasix. She underwent further evaluation including a chest x-ray which showed pulmonary vascular congestions and NT proBNP came in to be elevated troponin came in to be unremarkable and the rest of the blood work overall came in to be unremarkable including CBC and BMP. The EKG showed sinus mechanism with diffuse nonspecific ST and T wave abnormalities. 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 She does have hypertension and COPD. The physical examination is remarkable for regular rhythm with a soft systolic murmur at the right upper sternal border with diminished breathing sounds bilaterally and bilateral rhonchi and mild bilateral lower extremities edema noted. July 23, 2024 The patient was seen and evaluated this morning which she continues to be intubated on mechanical ventilation. She is still on small dose of norepinephrine. Otherwise she has been maintaining normal sinus mechanism. The echo showed mild cardiomyopathy with EF around 45% with global hypokinesia. The troponin came to be mildly elevated and she was started on heparin and I would continue that for additional 24-hour and total of 48 hours. Otherwise she is on aspirin. Am going to add statin to the current medical regimen which she is on lisinopril. The physical examination is remarkable for regular rhythm with a systolic murmur and diminished breathing sounds bilaterally and no edema was noted. The chest x-ray was reviewed. The blood work was reviewed. July 24, 2024 The patient was seen and evaluated this morning which she continues to be intubated on mechanical ventilation. She is on small dose of norepinephrine and at the same time she is on lisinopril. And going to stop the lisinopril. Her heart rate continues to be in the 50s and 60s. The chest x-ray did not show any acute abnormalities. Blood work showed stable hemoglobin and stable kidney function and electrolytes beside borderline low potassium. July 25, 2024 Patient continues to be on ventilator support. She continues to be on low-dose norepinephrine drip of 0.03 mcg/kg/min, labs shows WBC 18.2, hemoglobin 12.3, platelets 244, BUN 37, creatinine 0.7, TSH at 0.158, BP 113/58, heart rate 56 bpm, sinus rhythm On exam, regular pulses, no significant murmur appreciated, ET tube in place, on vent support, good air entry bilateral lung thomason No swelling in bilateral extremity On sedation, neuroexam was not performed Assessment Cardiopulmonary arrest with "asystole" Acute hypoxic respiratory failure Heart failure of unknown etiology at this point Low blood pressure requiring norepinephrine COPD Evidence of myocardial injury Mild cardiomyopathy Plan Continue the current medical regimen including aspirin and statin Try to wean the patient from norepinephrine Follow-up on the repeated echocardiogram Consider ruling out severe CAD once patient is more hemodynamically stable. Follow-up with the patient Objective - Vital Signs Vital signs: Vital Signs Temp 97.9 F 07/25/24 12:00 Pulse 56 L 07/25/24 14:00 Resp 16 07/25/24 14:00 BP 109/71 07/25/24 14:00 Pulse Ox 97 07/25/24 14:00 FiO2 60 07/25/24 16:17 Intake & Output 07/24/24 07/25/24 07/25/24 18:59 06:59 18:59 Intake Total 1966.496 7433.513 828.639 Output Total 1345 485 220 Balance 245.653 745.513 608.639 Weight 75.8 kg 75.8 kg Intake: IV 220 240 200 Piperacillin-Tazobactam 3 100 .375 gm In Sodium Chloride 0.9% 100 ml @ 25 mls/hr IVPB Q8HR JESSICA Rx# :[id number] Sodium Chloride 0.9% 1, 220 240 100 000 ml @ 20 mls/hr IV . Q24H JESSICA Rx#:[id number] Intake, IV Titration 622.653 324.513 280.639 Amount Heparin Sod,Pork in 0.45% 218.038 NaCl 25,000 unit In 0.45 % NaCl 1 250ml.bag @ 12 UNITS/KG/HR 9.132 mls/hr IV .Q24H JESSICA Rx#: [id number] Insulin Regular 100 unit 47.025 84.942 81.2 In Sodium Chloride 0.9% 100 ml @ Titrate IV .Q0M JESSICA Rx#:[id number] Midazolam HCl 50 mg In 47.583 84.467 Sodium Chloride 0.9% 40 ml @ 1 MG/HR 1 mls/hr IV .Q24H JESSICA Rx#:[id number] Norepinephrine 4 mg In 146.827 134.636 Sodium Chloride 0.9% 250 ml @ 0.03 MCG/KG/MIN 8. 243 mls/hr IV .Q24H JESSICA Rx#:[id number] Piperacillin-Tazobactam 3 100 100 .375 gm In Sodium Chloride 0.9% 100 ml @ 25 mls/hr IVPB Q8HR JESSICA Rx# :[id number] propofoL 1,000 mg In 63.180 55.104 64.803 Empty Bag 1 bag @ 15 MCG/ KG/MIN 6.491 mls/hr IV . [id number] JESSICA Rx#:[id number] Tube Feeding 528 576 288 Other 220 90 60 Output: Urine 1345 485 220 Other: Voiding Method Indwelling Catheter Indwelling Catheter Indwelling Catheter ABP, PAP, CO, CI - Last Documented Arterial Blood Pressure 113/58 - Labs CBC & Chem 7: 07/25/24 05:00 07/25/24 05:00 Labs: Abnormal Lab Results - Last 24 Hours (Table) 07/24/24 07/24/24 07/24/24 Range/Units 18:13 19:48 21:05 WBC (3.8-10.6) k/uL RBC (3.80-5.40) m/uL MCV (80.0-100.0) fL MCH (25.0-35.0) pg Neutrophils # (1.3-7.7) k/uL Macrocytosis ABG pH (7.35-7.45) ABG HCO3 (21-25) mmol/L ABG Total CO2 (19-24) mmol/L BUN (7-17) mg/dL Glucose (74-99) mg/dL POC Glucose (mg/dL) 164 H 132 H 195 H (70-110) mg/dL TSH (0.465-4.680) mIU/L Free T4 (0.78-2.19) ng/dL 07/24/24 07/24/24 07/24/24 Range/Units 21:58 23:10 23:55 WBC (3.8-10.6) k/uL RBC (3.80-5.40) m/uL MCV (80.0-100.0) fL MCH (25.0-35.0) pg Neutrophils # (1.3-7.7) k/uL Macrocytosis ABG pH (7.35-7.45) ABG HCO3 (21-25) mmol/L ABG Total CO2 (19-24) mmol/L BUN (7-17) mg/dL Glucose (74-99) mg/dL POC Glucose (mg/dL) 168 H 171 H 185 H (70-110) mg/dL TSH (0.465-4.680) mIU/L Free T4 (0.78-2.19) ng/dL 07/25/24 07/25/24 07/25/24 Range/Units 01:02 01:57 03:05 WBC (3.8-10.6) k/uL RBC (3.80-5.40) m/uL MCV (80.0-100.0) fL MCH (25.0-35.0) pg Neutrophils # (1.3-7.7) k/uL Macrocytosis ABG pH (7.35-7.45) ABG HCO3 (21-25) mmol/L ABG Total CO2 (19-24) mmol/L BUN (7-17) mg/dL Glucose (74-99) mg/dL POC Glucose (mg/dL) 193 H 188 H 202 H (70-110) mg/dL TSH (0.465-4.680) mIU/L Free T4 (0.78-2.19) ng/dL 07/25/24 07/25/24 07/25/24 Range/Units 04:05 04:59 05:00 WBC 18.2 H (3.8-10.6) k/uL RBC 3.23 L (3.80-5.40) m/uL MCV 116.8 H (80.0-100.0) fL MCH 38.0 H (25.0-35.0) pg Neutrophils # 15.5 H (1.3-7.7) k/uL Macrocytosis Marked A ABG pH (7.35-7.45) ABG HCO3 (21-25) mmol/L ABG Total CO2 (19-24) mmol/L BUN (7-17) mg/dL Glucose (74-99) mg/dL POC Glucose (mg/dL) 155 H 155 H (70-110) mg/dL TSH (0.465-4.680) mIU/L Free T4 (0.78-2.19) ng/dL 07/25/24 07/25/24 07/25/24 Range/Units 05:00 05:00 05:43 WBC (3.8-10.6) k/uL RBC (3.80-5.40) m/uL MCV (80.0-100.0) fL MCH (25.0-35.0) pg Neutrophils # (1.3-7.7) k/uL Macrocytosis ABG pH 7.47 H (7.35-7.45) ABG HCO3 31 H (21-25) mmol/L ABG Total CO2 32 H (19-24) mmol/L BUN 37 H (7-17) mg/dL Glucose 149 H (74-99) mg/dL POC Glucose (mg/dL) (70-110) mg/dL TSH 0.158 L (0.465-4.680) mIU/L Free T4 0.76 L (0.78-2.19) ng/dL 07/25/24 07/25/24 07/25/24 Range/Units 06:14 06:52 08:38 WBC (3.8-10.6) k/uL RBC (3.80-5.40) m/uL MCV (80.0-100.0) fL MCH (25.0-35.0) pg Neutrophils # (1.3-7.7) k/uL Macrocytosis ABG pH (7.35-7.45) ABG HCO3 (21-25) mmol/L ABG Total CO2 (19-24) mmol/L BUN (7-17) mg/dL Glucose (74-99) mg/dL POC Glucose (mg/dL) 151 H 162 H 152 H (70-110) mg/dL TSH (0.465-4.680) mIU/L Free T4 (0.78-2.19) ng/dL 07/25/24 07/25/24 07/25/24 Range/Units 11:38 13:04 15:47 WBC (3.8-10.6) k/uL RBC (3.80-5.40) m/uL MCV (80.0-100.0) fL MCH (25.0-35.0) pg Neutrophils # (1.3-7.7) k/uL Macrocytosis ABG pH (7.35-7.45) ABG HCO3 (21-25) mmol/L ABG Total CO2 (19-24) mmol/L BUN (7-17) mg/dL Glucose (74-99) mg/dL POC Glucose (mg/dL) 141 H 147 H 123 H (70-110) mg/dL TSH (0.465-4.680) mIU/L Free T4 (0.78-2.19) ng/dL Microbiology - Last 24 Hours (Table) 07/23/24 08:45 Blood Culture - Preliminary Blood
[2024-07-25 16:45] LABS: Glucose,Whole Blood 171 mg/dL (70-110)
--- NOTE | 2024-07-25 17:31 | CA ---
Transthoracic Echo Report Name: Velma Garsia Age: 54 Gender: F : 1970 Exam Date: 07/25/2024 07:56 Exam Location: [facility] Ht (in): 64 Wt (lb): 164 Ordering Physician: Sumit Munoz MD ([id number]) Attending/Referring Phys: Dumper Mold Cleaner Olga Vergara RDCS Procedure CPT: Indications: assess cardiac function and compare with last test Cardiac Hx: Limited for LVF Technical Quality: Fair Contrast 1: Total Dose (mL): Contrast 2: Total Dose (mL): MEASUREMENTS (Male / Female) Normal Values 2D ECHO LV Diastolic Diameter PLAX 4.3 cm 4.2 - 5.9 / 3.9 - 5.3 cm LV Systolic Diameter PLAX 3.1 cm IVS Diastolic Thickness 0.9 cm 0.6 - 1.0 / 0.6 - 0.9 cm LVPW Diastolic Thickness 1.2 cm 0.6 - 1.0 / 0.6 - 0.9 cm LV Relative Wall Thickness 0.5 RV Internal Dim ED PLAX 1.4 cm LV Diastolic Volume MOD BP 50.6 cm??? 67 - 155 / 56 - 104 cm??? LV Systolic Volume MOD BP 17.4 cm??? 22 - 58 / 19 - 49 cm??? LV Ejection Fraction MOD BP 65.7 % >= 55 % LV Cardiac Index MOD BP 1059.1 cm???/min???m??? LV Diastolic Volume MOD 4C 58.8 cm??? LV Systolic Volume MOD 4C 16.7 cm??? LV Ejection Fraction MOD 4C 71.5 % LV Cardiac Index MOD 4C 1338.4 cm???/min???m??? LV Diastolic Length 4C 6.5 cm LV Systolic Length 4C 4.7 cm LV Diastolic Volume MOD 2C 39.7 cm??? LV Systolic Volume MOD 2C 17.3 cm??? LV Ejection Fraction MOD 2C 56.4 % LV Cardiac Index MOD 2C 711.6 cm???/min???m??? LV Diastolic Length 2C 5.9 cm LV Systolic Length 2C 4.9 cm M-MODE Aortic Root Diameter MM 2.8 cm LA Systolic Diameter MM 2.4 cm LA Ao Ratio MM 0.9 AV Cusp Separation MM 1.7 cm FINDINGS Left Ventricle Left ventricular ejection fraction is estimated at 60-65%. Mildly increased posterior wall thickness. Normal left ventricular systolic function with no obvious regional wall motion abnormalities. Left ventricular cavity size normal. Right Ventricle Right Atrium Left Atrium Mitral Valve Aortic Valve Tricuspid Valve Pulmonic Valve Pericardium Small pericardial effusion. Pericardial effusion located anteriorly. Left pleural effusion. Aorta Normal size aortic root and proximal ascending aorta. CONCLUSIONS Diagnosis: History of previous cardiomyopathy 2D echo shows improved LV size and systolic function ejection fraction 65% Thickened pericardium Previewed by: Dr. Azam Mejia MD (Electronically Signed) Final Date: 25 July 2024 17:30
[2024-07-25 18:04] LABS: Glucose,Whole Blood 223 mg/dL (70-110)
[2024-07-25 20:04] LABS: Glucose,Whole Blood 55 mg/dL (70-110)
[2024-07-25] MEDS: DEXTROSE 50% SYRINGE 50 ML IVP PRN (20:13)
[2024-07-25 20:27] LABS: Glucose,Whole Blood 379 mg/dL (70-110)
[2024-07-25 21:04] LABS: Glucose,Whole Blood 332 mg/dL (70-110)
[2024-07-25 22:08] LABS: Glucose,Whole Blood 290 mg/dL (70-110)
[2024-07-25 23:00] LABS: Glucose,Whole Blood 273 mg/dL (70-110)
[2024-07-26 00:05] LABS: Glucose,Whole Blood 224 mg/dL (70-110)
[2024-07-26 00:56] LABS: Glucose,Whole Blood 204 mg/dL (70-110)
[2024-07-26 02:10] LABS: Glucose,Whole Blood 173 mg/dL (70-110)
[2024-07-26 03:09] LABS: Glucose,Whole Blood 165 mg/dL (70-110)
[2024-07-26 03:58] LABS: Glucose,Whole Blood 172 mg/dL (70-110)
[2024-07-26 04:16] LABS: ALT 126 U/L (4-34); AST 53 U/L (14-36); African American GFR (CKD) >90 (>60 ml/min/1.73 sqM); Albumin 3.1 g/dL (3.5-5.0); Alkaline Phosphatase 133 U/L (38-126); Anion Gap 5 mmol/L; Blood Urea Nitrogen 40 mg/dL (7-17); Calcium 9.5 mg/dL (8.4-10.2); Carbon Dioxide 30 mmol/L (22-30); Chloride 105 mmol/L (98-107); Glucose 164 mg/dL (74-99); Non-African American GFR(CKD) >90 (>60 ml/min/1.73 sqM); Potassium 4.3 mmol/L (3.5-5.1); Sodium 140 mmol/L (137-145); Total Bilirubin 0.7 mg/dL (0.2-1.3); Total Protein 5.2 g/dL (6.3-8.2)
[2024-07-26 04:27] LABS: Basophils # (A) 0.1 k/uL (0-0.2); Basophils % (A) 0 %; Eosinophils % (A) 0 %; HCT 34.8 % (34.0-46.0); HGB 11.6 gm/dL (11.4-16.0); Lymphocytes # (A) 1.5 k/uL (1.0-4.8); Lymphocytes % (A) 11 %; MCH 39.2 pg (25.0-35.0); MCHC 33.4 g/dL (31.0-37.0); MCV 117.5 fL (80.0-100.0); Macrocytosis Marked; Mean Platelet Volume 11.6; Monocytes # (A) 0.6 k/uL (0-1.0); Monocytes % (A) 4 %; Neutrophils # (A) 11.6 k/uL (1.3-7.7); Neutrophils % (A) 83 %; Platelet Count 217 k/uL (150-450); RBC 2.96 m/uL (3.80-5.40); RDW 13.5 % (11.5-15.5); WBC 13.9 k/uL (3.8-10.6)
[2024-07-26 05:17] LABS: RBC Morphology Normal
[2024-07-26 05:23] LABS: Glucose,Whole Blood 176 mg/dL (70-110)
[2024-07-26 05:25] LABS: ABG Base Excess 5.9 mmol/L; ABG HCO3 31 mmol/L (21-25); ABG Oxygen Saturation 97.3 % (94-97); ABG PCO2 44 mmHg (35-45); ABG PH 7.45 (7.35-7.45); ABG PO2 88 mmHg (83-108); ABG TCO2 32 mmol/L (19-24); Allen Test Performed? Yes
[2024-07-26 06:02] LABS: Glucose,Whole Blood 154 mg/dL (70-110)
[2024-07-26 08:03] LABS: Glucose,Whole Blood 178 mg/dL (70-110)
--- NOTE | 2024-07-26 08:40 | XR ---
EXAMINATION TYPE: XR chest 1V portable DATE OF EXAM: 07/26/2024 5:32 AM CLINICAL INDICATION: Female, 54 years old with history of mechanical ventilation; COMPARISON: 07/25/2024 TECHNIQUE: XR chest 1V portable Frontal view of the chest. FINDINGS: Lungs/Pleura: There is no evidence of pleural effusion, focal consolidation, or pneumothorax. Pulmonary vascularity: Unremarkable. Heart/mediastinum: Cardiomediastinal silhouette is unremarkable. Musculoskeletal: No acute osseous pathology. Other findings: None Lines/Tubes: Endotracheal tube with distal tip 4.9 cm above the alexys. Nasogastric tube with its distal tip and side-port projecting under the diaphragm. Left central venous catheter with distal tip at the cavoatrial junction. IMPRESSION: No acute cardiopulmonary disease/process. [facility], , 07/26/2024 8:37 AM
[2024-07-26] MEDS: ENOXAPARIN 40 MG/0.4 ML SYRINGE SQ SCH (08:48)
[2024-07-26 10:14] LABS: Glucose,Whole Blood 169 mg/dL (70-110)
--- NOTE | 2024-07-26 10:55 | P.PN ---
Subjective Progress Note Date: 07/26/24 Principal diagnosis: Acute COVID-19 infection and cardiopulmonary arrest This is a 54-year-old female patient with a history of chronic obstructive pulmonary disease, chronic and ongoing tobacco dependence, fibromyalgia, hypertension, bipolar disorder, anxiety who presented here to the emergency room on 07/17/2024 with multiple complaints including burning with urination, cough congestion weakness. Tmax of 102.4. She was found to have a COVID-19 infection. She was found to be hypoxemic. She is on 4 L nasal cannula now. She is febrile. Count 9.6. Hemoglobin 12.2. Platelets 180. D-dimer 1.00. Sodium 142. Potassium 4.0. Bicarb 20. BUN 11. Creatinine 0.7. Glucose 158. AST 144. ALT 102. proBNP 4830. Troponin negative x 1. Procalcitonin negative at 0.20. She is initiated on Decadron and vitamin supplements. She is seen today July 21, 2024 in follow-up after developing increasing shortness of breath. She is maintaining O2 saturations in the 90s on 4 L/min per nasal cannula. Patient was evaluated today on 07/22/2024, I saw this patient yesterday for her COVID-19 infection, patient was more symptomatic than expected based on her physical examination, hence I recommended a CT angiogram of the chest which came back negative for pulmonary embolism, it did show evidence of scattered airspace opacities consistent with pneumonia, multifocal groundglass opacities were also noted. There is also evidence of small bilateral pleural effusions. During my evaluation, patient was on 4 L nasal cannula, and did not seem to be in distress. at 20:22 on 07/21 patient had a sudden episode of unresponsiveness. According to the nurse patient was unresponsive and pulseless. CODE BLUE was immediately activated and CPR was initiated. Apparently she was in asystole patient received 1 dose of epinephrine, went into ventricular fibrillation and she received 1 shock at 120 J. Another V-fib episode was noted shortly after and 200 J were delivered. Patient had subsequent return of spontaneous circulation at 2027. In the meantime the patient was intubated by [facility] and she was sent to the ICU, and I was notified about the patient that she is in the U. Discussed the vent settings the ABG reviewed her chest x-ray which clearly showed evidence of pulmonary edema or possibly aspiration pneumonia I recommended Lasix, and I also recommended antibiotic which was started in the form of Zosyn. Patient is now in the ICU. She is on assist-control rate of 20 tidal volume 450 FiO2 100% and PEEP of 8 ABG showed a pO2 of 108 pCO2 34 pH of 7.59. Echocardiogram this morning showed global systolic dysfunction, ejection fraction estimated to be 45%. Patient was also noted to have mild aortic regurgitation. Troponin today is 0.592, patient was seen by cardiology, EKG showed diffuse nonspecific ST and T wave changes and the recommendation is to continue Lasix specially with her LV dysfunction. BNP level is pending, Lasix dose was increased after reviewing her chest x-ray from 20 mg to 40 mg IV push every 8 hours. Patient is also on heparin. And she is on antibiotics in the form of Zosyn. Patient is also on the COVID-19 cocktail, the findings on her chest x-ray are clinically not findings of COVID-19 pneumonia labs today showed WBC of 7.7 hemoglobin 12.8 procalcitonin level on admission was 0.2, basically unremarkable. Her basic metabolic profile is normal renal profile is normal potassium is a bit low at 3.3 being addressed accordingly Patient was seen today on 07/23/2024, remains in the ICU intubated and mechanically ventilated. Patient is on assist-control rate of 16 tidal volume 450 FiO2 60% PEEP of 12 ABG remains marginal with a pO2 of 55 pCO2 40 pH of 7.57 chest x-ray is showing significant improvement in her infiltrates/pulmonary edema over the last 24 hours, patient has been left on Lasix all along. Patient is requiring a small dose of norepinephrine for low blood pressure norepinephrine at 0.04 mcg/kg/min today I recommended holding the Lasix and starting IV fluid at 125 cc per hour. Patient remains on propofol at 25 mcg/kg/min and Versed at 5 mg/h. Today I am recommending that we taper and discontinue propofol, and maintain the patient on Versed even if we have to increase the dose. Steroids while she was on Decadron, and I am recommending Solu-Medrol I am also recommended that we continue Zosyn. Lasix is now on hold. Heparin still on board as ordered by cardiology. Echocardiogram did show evidence of mild LV dysfunction chest x-ray improved with diuretics. WBC 12.6 hemoglobin 13.4. PTT was 34 today. Heparin was placed on hold temporarily until a line was placed/triple-lumen catheter and will be restarted renal profile is normal potassium is a bit low at 3.3 being addressed accordingly Patient was reevaluated today on 07/24/2024, remains in the ICU, intubated and mechanically ventilated, ABG is marginal at best. Remains on assist-control rate of 16 tidal volume 450 FiO2 60% PEEP of 12 ABG showed a pO2 of 66 pCO2 40 pH of 7.52. Patient remains on heparin also on insulin at 5 units/h, Versed at 5 mg/h norepinephrine 0.03 mcg/kg/min, propofol 20 mcg/kg/min, remains on vital AF at 20 cc/h, patient is also receiving Zosyn empirically. She did receive Lasix this morning 40 mg IV push as her chest x-ray is showing slight worsening of her interstitial edema/infiltrates WBC is 15.1 hemoglobin is 13. Basic metabolic profile is normal bicarb is 34 BUN is 27 creatinine 0.76 blood sugar is 200 Progress note dated July 25, 2024. Patient was evaluated today, remains in the ICU is intubated and mechanically ventilated. Remains on assist-control rate of 16, tidal volume 450, FiO2 60%, PEEP 12. ABG shows pO2 84, pCO2 42, pH 7.47. Plan to decrease tidal volume.She remains on propofol at 30 mcg/kg/min, norepinephrine at 0.03 mcg/kg/min, Vital AF at 40cc/h with goal of 40, 0.9 NS at 20 mL per hr and Zosyn. Pro-Jesse has been ordered today, if negative Zosyn will be discontinued. Chest x-ray done today shows low lung volumes with generalized hazy appearance which could represent atelectasis versus pulmonary edema. As per cardiology non-epinephrine was weaned but the patient had to be put back on it. Cortisol and TSH have been ordered today. TSH is 0.158. Labs show WBC 18.2, hemoglobin 12.3, platelet 244, sodium 141, potassium 4, chloride 103, bicarb 30, BUN 37, creatinine 0.75, glucose 152, A1c 6.1. Progress note dated July 26, 2024. Patient was seen today in the ICU, remains intubated and mechanically ventilated. Patient is on assist-control rate of 16, tidal volume 350, FiO2 50%, PEEP changed today from 12 to 8. ABG shows pO2 88, pCO2 44, pH 7.45. She is on propofol at 35 mics per keg per minute, vital AF at goal of 40 cc/h, 0.9 normal saline at 20 mL/h and insulin 5 units/h. Norepinephrine was weaned Pro- Jesse is 0.41 hence Zosyn has been discontinued. Chest x-ray shows no acute cardiopulmonary disease process. Repeat echo shows improved LV size, ejection fraction 65% and thickened pericardium. Plan is to wake her up and perform sp ontaneous breathing trial with pressure support 06/13. Labs show TSH 0.158, free T4.76, cortisol 11.1, WBC 13.9, hemoglobin 11.6, platelet count 217, sodium 140, potassium 4.3, chloride 105, bicarb 30, BUN 40, creatinine 0.66, glucose 169, AST 53, ALT 126, ALP 133, total protein 5.2 and albumin 3.1. Objective - Vital Signs Vital signs: Vital Signs Temp 98.7 F 07/26/24 04:00 Pulse 64 07/26/24 09:00 Resp 20 07/26/24 09:00 BP 114/72 07/26/24 09:00 Pulse Ox 98 07/26/24 09:00 FiO2 50 07/26/24 09:27 Intake & Output 07/25/24 07/26/24 07/26/24 18:59 06:59 18:59 Intake Total 1125.398 577.615 178 Output Total 465 580 185 Balance 660.398 -2.385 -7 Weight 75.8 kg 79.1 kg Intake: IV 370 396 178 Piperacillin-Tazobactam 3 200 100 100 .375 gm In Sodium Chloride 0.9% 100 ml @ 25 mls/hr IVPB Q8HR JESSICA Rx# :[id number] Pressure bags 66 18 Sodium Chloride 0.9% 1, 170 230 60 000 ml @ 20 mls/hr IV . Q24H JESSICA Rx#:[id number] Intake, IV Titration 311.398 181.615 Amount Insulin Regular 100 unit 81.2 55.417 In Sodium Chloride 0.9% 100 ml @ Titrate IV .Q0M JESSICA Rx#:[id number] Norepinephrine 4 mg In 134.636 26.198 Sodium Chloride 0.9% 250 ml @ 0.03 MCG/KG/MIN 8. 243 mls/hr IV .Q24H JESSICA Rx#:[id number] propofoL 1,000 mg In 95.562 100.000 Empty Bag 1 bag @ 15 MCG/ KG/MIN 6.491 mls/hr IV . [id number] JESSICA Rx#:[id number] Tube Feeding 384 Other 60 Output: Urine 465 580 185 Other: Voiding Method Indwelling Catheter Indwelling Catheter Indwelling Catheter ABP, PAP, CO, CI - Last Documented Arterial Blood Pressure 137/65 - Exam GENERAL EXAM: Intubated and mechanically ventilated, sedated HEAD: Normocephalic. EYES: Normal reaction of pupils, equal size. NOSE: Clear with pink turbinates. THROAT: No erythema or exudates. Endotracheal tube and orogastric tube are intact NECK: No masses, no JVD. CHEST: No chest wall deformity. LUNGS: Diminished bilaterally CVS: S1 and S2 normal ABDOMEN: No hepatosplenomegaly, normal bowel sounds, no guarding or rigidity. SKIN: No rashes CENTRAL NERVOUS SYSTEM: Cannot assess patient is fully sedated EXTREMITIES: No clubbing edema or cyanosis - Labs CBC & Chem 7: 07/26/24 04:00 07/26/24 04:00 Labs: Abnormal Lab Results - Last 24 Hours (Table) 07/25/24 07/25/24 07/25/24 Range/Units 05:00 11:38 13:04 WBC (3.8-10.6) k/uL RBC (3.80-5.40) m/uL MCV (80.0-100.0) fL MCH (25.0-35.0) pg Neutrophils # (1.3-7.7) k/uL Macrocytosis APTT (22.0-30.0) sec ABG HCO3 (21-25) mmol/L ABG Total CO2 (19-24) mmol/L ABG O2 Saturation (94-97) % BUN (7-17) mg/dL Glucose (74-99) mg/dL POC Glucose (mg/dL) 141 H 147 H (70-110) mg/dL AST (14-36) U/L ALT (4-34) U/L Alkaline Phosphatase (38-126) U/L Total Protein (6.3-8.2) g/dL Albumin (3.5-5.0) g/dL TSH 0.158 L (0.465-4.680) mIU/L Free T4 0.76 L (0.78-2.19) ng/dL 07/25/24 07/25/24 07/25/24 Range/Units 15:47 15:48 16:44 WBC (3.8-10.6) k/uL RBC (3.80-5.40) m/uL MCV (80.0-100.0) fL MCH (25.0-35.0) pg Neutrophils # (1.3-7.7) k/uL Macrocytosis APTT 20.1 L (22.0-30.0) sec ABG HCO3 (21-25) mmol/L ABG Total CO2 (19-24) mmol/L ABG O2 Saturation (94-97) % BUN (7-17) mg/dL Glucose (74-99) mg/dL POC Glucose (mg/dL) 123 H 171 H (70-110) mg/dL AST (14-36) U/L ALT (4-34) U/L Alkaline Phosphatase (38-126) U/L Total Protein (6.3-8.2) g/dL Albumin (3.5-5.0) g/dL TSH (0.465-4.680) mIU/L Free T4 (0.78-2.19) ng/dL 07/25/24 07/25/24 07/25/24 Range/Units 18:03 20:03 20:26 WBC (3.8-10.6) k/uL RBC (3.80-5.40) m/uL MCV (80.0-100.0) fL MCH (25.0-35.0) pg Neutrophils # (1.3-7.7) k/uL Macrocytosis APTT (22.0-30.0) sec ABG HCO3 (21-25) mmol/L ABG Total CO2 (19-24) mmol/L ABG O2 Saturation (94-97) % BUN (7-17) mg/dL Glucose (74-99) mg/dL POC Glucose (mg/dL) 223 H 55 L 379 H (70-110) mg/dL AST (14-36) U/L ALT (4-34) U/L Alkaline Phosphatase (38-126) U/L Total Protein (6.3-8.2) g/dL Albumin (3.5-5.0) g/dL TSH (0.465-4.680) mIU/L Free T4 (0.78-2.19) ng/dL 07/25/24 07/25/24 07/25/24 Range/Units 21:01 22:07 22:59 WBC (3.8-10.6) k/uL RBC (3.80-5.40) m/uL MCV (80.0-100.0) fL MCH (25.0-35.0) pg Neutrophils # (1.3-7.7) k/uL Macrocytosis APTT (22.0-30.0) sec ABG HCO3 (21-25) mmol/L ABG Total CO2 (19-24) mmol/L ABG O2 Saturation (94-97) % BUN (7-17) mg/dL Glucose (74-99) mg/dL POC Glucose (mg/dL) 332 H 290 H 273 H (70-110) mg/dL AST (14-36) U/L ALT (4-34) U/L Alkaline Phosphatase (38-126) U/L Total Protein (6.3-8.2) g/dL Albumin (3.5-5.0) g/dL TSH (0.465-4.680) mIU/L Free T4 (0.78-2.19) ng/dL 07/26/24 07/26/24 07/26/24 Range/Units 00:03 00:55 02:09 WBC (3.8-10.6) k/uL RBC (3.80-5.40) m/uL MCV (80.0-100.0) fL MCH (25.0-35.0) pg Neutrophils # (1.3-7.7) k/uL Macrocytosis APTT (22.0-30.0) sec ABG HCO3 (21-25) mmol/L ABG Total CO2 (19-24) mmol/L ABG O2 Saturation (94-97) % BUN (7-17) mg/dL Glucose (74-99) mg/dL POC Glucose (mg/dL) 224 H 204 H 173 H (70-110) mg/dL AST (14-36) U/L ALT (4-34) U/L Alkaline Phosphatase (38-126) U/L Total Protein (6.3-8.2) g/dL Albumin (3.5-5.0) g/dL TSH (0.465-4.680) mIU/L Free T4 (0.78-2.19) ng/dL 07/26/24 07/26/24 07/26/24 Range/Units 03:08 03:57 04:00 WBC 13.9 H (3.8-10.6) k/uL RBC 2.96 L (3.80-5.40) m/uL MCV 117.5 H (80.0-100.0) fL MCH 39.2 H (25.0-35.0) pg Neutrophils # 11.6 H (1.3-7.7) k/uL Macrocytosis Marked A APTT (22.0-30.0) sec ABG HCO3 (21-25) mmol/L ABG Total CO2 (19-24) mmol/L ABG O2 Saturation (94-97) % BUN (7-17) mg/dL Glucose (74-99) mg/dL POC Glucose (mg/dL) 165 H 172 H (70-110) mg/dL AST (14-36) U/L ALT (4-34) U/L Alkaline Phosphatase (38-126) U/L Total Protein (6.3-8.2) g/dL Albumin (3.5-5.0) g/dL TSH (0.465-4.680) mIU/L Free T4 (0.78-2.19) ng/dL 07/26/24 07/26/24 07/26/24 Range/Units 04:00 05:19 05:21 WBC (3.8-10.6) k/uL RBC (3.80-5.40) m/uL MCV (80.0-100.0) fL MCH (25.0-35.0) pg Neutrophils # (1.3-7.7) k/uL Macrocytosis APTT (22.0-30.0) sec ABG HCO3 31 H (21-25) mmol/L ABG Total CO2 32 H (19-24) mmol/L ABG O2 Saturation 97.3 H (94-97) % BUN 40 H (7-17) mg/dL Glucose 164 H (74-99) mg/dL POC Glucose (mg/dL) 176 H (70-110) mg/dL AST 53 H (14-36) U/L ALT 126 H (4-34) U/L Alkaline Phosphatase 133 H (38-126) U/L Total Protein 5.2 L (6.3-8.2) g/dL Albumin 3.1 L (3.5-5.0) g/dL TSH (0.465-4.680) mIU/L Free T4 (0.78-2.19) ng/dL 07/26/24 07/26/24 07/26/24 Range/Units 06:01 08:01 10:13 WBC (3.8-10.6) k/uL RBC (3.80-5.40) m/uL MCV (80.0-100.0) fL MCH (25.0-35.0) pg Neutrophils # (1.3-7.7) k/uL Macrocytosis APTT (22.0-30.0) sec ABG HCO3 (21-25) mmol/L ABG Total CO2 (19-24) mmol/L ABG O2 Saturation (94-97) % BUN (7-17) mg/dL Glucose (74-99) mg/dL POC Glucose (mg/dL) 154 H 178 H 169 H (70-110) mg/dL AST (14-36) U/L ALT (4-34) U/L Alkaline Phosphatase (38-126) U/L Total Protein (6.3-8.2) g/dL Albumin (3.5-5.0) g/dL TSH (0.465-4.680) mIU/L Free T4 (0.78-2.19) ng/dL Microbiology - Last 24 Hours (Table) 07/23/24 08:45 Blood Culture - Preliminary Blood Assessment and Plan Assessment: Acute hypoxic respiratory failure secondary to cardiac arrest Covid 19 pneumonia Febrile illness secondary to COVID-19 infection Underlying COPD Acute systolic congestive heart failure Chronic ongoing tobacco dependence History of bipolar disorder History of fibromyalgia Generalized anxiety disorder Plan: Spontaneous breathing trial today Discontinue Zosyn and norepinephrine Continue albuterol inhaler 4 times daily as needed, Solu-Medrol 60 mg every 6 hours Nutritional support- Vital AF at goal of 40. Aspirin 81 mg, atorvastatin 40 mg daily Quetiapine 300 mg at bedtime Continue to monitor daily x-rays of the chest and daily ABGs and address diuretics accordingly GI prophylaxis: Pantoprazole 40 mg daily DVT prophylaxis: Enoxaparin 40 mg SQ daily Heparin discontinued per cardiology Will continue to follow, prognosis is guarded Critical care time is 35 minutes Time with Patient: Greater than 30
[2024-07-26 12:11] LABS: Glucose,Whole Blood 137 mg/dL (70-110)
[2024-07-26 13:59] LABS: Glucose,Whole Blood 205 mg/dL (70-110)
[2024-07-26 15:24] LABS: Glucose,Whole Blood 234 mg/dL (70-110)
[2024-07-26 16:47] LABS: Glucose,Whole Blood 248 mg/dL (70-110)
[2024-07-26 17:45] LABS: Glucose,Whole Blood 243 mg/dL (70-110)
[2024-07-26 18:45] LABS: Glucose,Whole Blood 235 mg/dL (70-110)
[2024-07-26 19:58] LABS: Glucose,Whole Blood 242 mg/dL (70-110)
[2024-07-26 21:09] LABS: Glucose,Whole Blood 231 mg/dL (70-110)
--- NOTE | 2024-07-26 21:31 | PN ---
PROGRESS NOTE DATE OF SERVICE: 07/23/2024 CHIEF COMPLAINT: Cardiorespiratory arrest. HISTORY OF PRESENT ILLNESS: This lady is currently on the ventilator. She probably has a combination of pulmonary and cardiac issues. Her BNP is 4830. Her ejection fraction is 45%. She is currently being managed by Intensive Medicine and Cardiology. PHYSICAL EXAMINATION: CHEST: Clear on both sides. CARDIAC: Demonstrates sinus rhythm. EXTREMITIES: Perfused. IMPRESSION: 1. Status post cardiorespiratory arrest. 2. Congestive heart failure. 3. Probable underlying cardiac disease such as coronary artery disease, cardiomyopathy, myocarditis, etc. 4. History of chronic obstructive pulmonary disease. PLAN: Continue to follow with Cardiology and Pulmonology in the intensive care unit. MMODL / IJN: [id number] /
[2024-07-26 22:09] LABS: Glucose,Whole Blood 208 mg/dL (70-110)
[2024-07-26 23:04] LABS: Glucose,Whole Blood 213 mg/dL (70-110)
[2024-07-27 00:20] LABS: Glucose,Whole Blood 173 mg/dL (70-110)
[2024-07-27 02:02] LABS: Glucose,Whole Blood 116 mg/dL (70-110)
[2024-07-27 03:15] LABS: Glucose,Whole Blood 128 mg/dL (70-110)
[2024-07-27 04:40] LABS: Glucose,Whole Blood 154 mg/dL (70-110)
[2024-07-27 05:00] LABS: Basophils % (A) 0 %; Eosinophils % (A) 0 %; HCT 38.8 % (34.0-46.0); HGB 12.5 gm/dL (11.4-16.0); Hypochromasia Slight; Lymphocytes # (A) 2.6 k/uL (1.0-4.8); Lymphocytes % (A) 16 %; MCH 37.6 pg (25.0-35.0); MCHC 32.1 g/dL (31.0-37.0); Macrocytosis Marked; Mean Platelet Volume 9.8; Monocytes # (A) 0.8 k/uL (0-1.0); Monocytes % (A) 5 %; Neutrophils # (A) 12.4 k/uL (1.3-7.7); Neutrophils % (A) 77 %; Platelet Count 280 k/uL (150-450); RBC 3.32 m/uL (3.80-5.40); RDW 12.8 % (11.5-15.5); WBC 16.1 k/uL (3.8-10.6)
[2024-07-27 05:03] LABS: MCV 116.9 fL (80.0-100.0)
[2024-07-27 05:08] LABS: ALT 116 U/L (4-34); AST 43 U/L (14-36); African American GFR (CKD) >90 (>60 ml/min/1.73 sqM); Albumin 3.3 g/dL (3.5-5.0); Alkaline Phosphatase 148 U/L (38-126); Anion Gap 4 mmol/L; Blood Urea Nitrogen 30 mg/dL (7-17); Calcium 9.6 mg/dL (8.4-10.2); Carbon Dioxide 30 mmol/L (22-30); Chloride 104 mmol/L (98-107); Glucose 148 mg/dL (74-99); Non-African American GFR(CKD) >90 (>60 ml/min/1.73 sqM); Potassium 4.2 mmol/L (3.5-5.1); Sodium 138 mmol/L (137-145); Total Bilirubin 0.6 mg/dL (0.2-1.3); Total Protein 5.5 g/dL (6.3-8.2)
[2024-07-27 05:38] LABS: ABG HCO3 30 mmol/L (21-25); ABG Oxygen Saturation 96.4 % (94-97); ABG PCO2 39 mmHg (35-45); ABG PH 7.49 (7.35-7.45); ABG PO2 78 mmHg (83-108); ABG TCO2 31 mmol/L (19-24); Allen Test Performed? Yes
[2024-07-27 07:03] LABS: Glucose,Whole Blood 153 mg/dL (70-110)
--- NOTE | 2024-07-27 07:30 | XR ---
EXAMINATION TYPE: XR chest 1V portable DATE OF EXAM: 07/27/2024 COMPARISON: 07/26/2024 INDICATION: Mechanical ventilation difficulty breathing TECHNIQUE: Single frontal view of the chest is obtained. FINDINGS: The heart size is normal. The pulmonary vasculature is normal. Mild left lower lobe infiltrate is present. Endotracheal tube tip is 4.9 cm above the alexys. Nasogastric tube tip in the proximal left upper daryn drant abdomen pullback slightly from comparison. IMPRESSION: 1. Mild left lower lobe infiltrate. Correlate for atelectasis and pneumonia. 2. Lines and catheters discussed above [facility], , 07/27/2024 7:27 AM
[2024-07-27 08:14] LABS: Glucose,Whole Blood 189 mg/dL (70-110)
[2024-07-27] MEDS ORDERED: LOSARTAN 25 MG TAB PO SCH (09:00)
[2024-07-27 09:48] LABS: Glucose,Whole Blood 231 mg/dL (70-110)
[2024-07-27 09:50] LABS: ABG HCO3 29 mmol/L (21-25); ABG Oxygen Saturation 85.9 % (94-97); ABG PCO2 40 mmHg (35-45); ABG PH 7.47 (7.35-7.45); ABG TCO2 30 mmol/L (19-24); Allen Test Performed? Yes
--- NOTE | 2024-07-27 10:57 | P.PN ---
Subjective Progress Note Date: 07/27/24 Principal diagnosis: Acute COVID-19 infection and cardiopulmonary arrest This is a 54-year-old female patient with a history of chronic obstructive pulmonary disease, chronic and ongoing tobacco dependence, fibromyalgia, hypertension, bipolar disorder, anxiety who presented here to the emergency room on 07/17/2024 with multiple complaints including burning with urination, cough congestion weakness. Tmax of 102.4. She was found to have a COVID-19 infection. She was found to be hypoxemic. She is on 4 L nasal cannula now. She is febrile. Count 9.6. Hemoglobin 12.2. Platelets 180. D-dimer 1.00. Sodium 142. Potassium 4.0. Bicarb 20. BUN 11. Creatinine 0.7. Glucose 158. AST 144. ALT 102. proBNP 4830. Troponin negative x 1. Procalcitonin negative at 0.20. She is initiated on Decadron and vitamin supplements. She is seen today July 21, 2024 in follow-up after developing increasing shortness of breath. She is maintaining O2 saturations in the 90s on 4 L/min per nasal cannula. Patient was evaluated today on 07/22/2024, I saw this patient yesterday for her COVID-19 infection, patient was more symptomatic than expected based on her physical examination, hence I recommended a CT angiogram of the chest which came back negative for pulmonary embolism, it did show evidence of scattered airspace opacities consistent with pneumonia, multifocal groundglass opacities were also noted. There is also evidence of small bilateral pleural effusions. During my evaluation, patient was on 4 L nasal cannula, and did not seem to be in distress. at 20:22 on 07/21 patient had a sudden episode of unresponsiveness. According to the nurse patient was unresponsive and pulseless. CODE BLUE was immediately activated and CPR was initiated. Apparently she was in asystole patient received 1 dose of epinephrine, went into ventricular fibrillation and she received 1 shock at 120 J. Another V-fib episode was noted shortly after and 200 J were delivered. Patient had subsequent return of spontaneous circulation at 2027. In the meantime the patient was intubated by [employer] and she was sent to the ICU, and I was notified about the patient that she is in the U. Discussed the vent settings the ABG reviewed her chest x-ray which clearly showed evidence of pulmonary edema or possibly aspiration pneumonia I recommended Lasix, and I also recommended antibiotic which was started in the form of Zosyn. Patient is now in the ICU. She is on assist-control rate of 20 tidal volume 450 FiO2 100% and PEEP of 8 ABG showed a pO2 of 108 pCO2 34 pH of 7.59. Echocardiogram this morning showed global systolic dysfunction, ejection fraction estimated to be 45%. Patient was also noted to have mild aortic regurgitation. Troponin today is 0.592, patient was seen by cardiology, EKG showed diffuse nonspecific ST and T wave changes and the recommendation is to continue Lasix specially with her LV dysfunction. BNP level is pending, Lasix dose was increased after reviewing her chest x-ray from 20 mg to 40 mg IV push every 8 hours. Patient is also on heparin. And she is on antibiotics in the form of Zosyn. Patient is also on the COVID-19 cocktail, the findings on her chest x-ray are clinically not findings of COVID-19 pneumonia labs today showed WBC of 7.7 hemoglobin 12.8 procalcitonin level on admission was 0.2, basically unremarkable. Her basic metabolic profile is normal renal profile is normal potassium is a bit low at 3.3 being addressed accordingly Patient was seen today on 07/23/2024, remains in the ICU intubated and mechanically ventilated. Patient is on assist-control rate of 16 tidal volume 450 FiO2 60% PEEP of 12 ABG remains marginal with a pO2 of 55 pCO2 40 pH of 7.57 chest x-ray is showing significant improvement in her infiltrates/pulmonary edema over the last 24 hours, patient has been left on Lasix all along. Patient is requiring a small dose of norepinephrine for low blood pressure norepinephrine at 0.04 mcg/kg/min today I recommended holding the Lasix and starting IV fluid at 125 cc per hour. Patient remains on propofol at 25 mcg/kg/min and Versed at 5 mg/h. Today I am recommending that we taper and discontinue propofol, and maintain the patient on Versed even if we have to increase the dose. Steroids while she was on Decadron, and I am recommending Solu-Medrol I am also recommended that we continue Zosyn. Lasix is now on hold. Heparin still on board as ordered by cardiology. Echocardiogram did show evidence of mild LV dysfunction chest x-ray improved with diuretics. WBC 12.6 hemoglobin 13.4. PTT was 34 today. Heparin was placed on hold temporarily until a line was placed/triple-lumen catheter and will be restarted renal profile is normal potassium is a bit low at 3.3 being addressed accordingly Patient was reevaluated today on 07/24/2024, remains in the ICU, intubated and mechanically ventilated, ABG is marginal at best. Remains on assist-control rate of 16 tidal volume 450 FiO2 60% PEEP of 12 ABG showed a pO2 of 66 pCO2 40 pH of 7.52. Patient remains on heparin also on insulin at 5 units/h, Versed at 5 mg/h norepinephrine 0.03 mcg/kg/min, propofol 20 mcg/kg/min, remains on vital AF at 20 cc/h, patient is also receiving Zosyn empirically. She did receive Lasix this morning 40 mg IV push as her chest x-ray is showing slight worsening of her interstitial edema/infiltrates WBC is 15.1 hemoglobin is 13. Basic metabolic profile is normal bicarb is 34 BUN is 27 creatinine 0.76 blood sugar is 200 Progress note dated July 25, 2024. Patient was evaluated today, remains in the ICU is intubated and mechanically ventilated. Remains on assist-control rate of 16, tidal volume 450, FiO2 60%, PEEP 12. ABG shows pO2 84, pCO2 42, pH 7.47. Plan to decrease tidal volume.She remains on propofol at 30 mcg/kg/min, norepinephrine at 0.03 mcg/kg/min, Vital AF at 40cc/h with goal of 40, 0.9 NS at 20 mL per hr and Zosyn. Pro-Jesse has been ordered today, if negative Zosyn will be discontinued. Chest x-ray done today shows low lung volumes with generalized hazy appearance which could represent atelectasis versus pulmonary edema. As per cardiology non-epinephrine was weaned but the patient had to be put back on it. Cortisol and TSH have been ordered today. TSH is 0.158. Labs show WBC 18.2, hemoglobin 12.3, platelet 244, sodium 141, potassium 4, chloride 103, bicarb 30, BUN 37, creatinine 0.75, glucose 152, A1c 6.1. Progress note dated July 26, 2024. Patient was seen today in the ICU, remains intubated and mechanically ventilated. Patient is on assist-control rate of 16, tidal volume 350, FiO2 50%, PEEP changed today from 12 to 8. ABG shows pO2 88, pCO2 44, pH 7.45. She is on propofol at 35 mics per keg per minute, vital AF at goal of 40 cc/h, 0.9 normal saline at 20 mL/h and insulin 5 units/h. Norepinephrine was weaned Pro- Jesse is 0.41 hence Zosyn has been discontinued. Chest x-ray shows no acute cardiopulmonary disease process. Repeat echo shows improved LV size, ejection fraction 65% and thickened pericardium. Plan is to wake her up and perform sp ontaneous breathing trial with pressure support 06/13. Labs show TSH 0.158, free T4.76, cortisol 11.1, WBC 13.9, hemoglobin 11.6, platelet count 217, sodium 140, potassium 4.3, chloride 105, bicarb 30, BUN 40, creatinine 0.66, glucose 169, AST 53, ALT 126, ALP 133, total protein 5.2 and albumin 3.1. Progress note dated July 27, 2024. Patient evaluated in the ICU, remains intubated and mechanically ventilated. The patient is on assist-control rate of 16, tidal volume 350, FiO2 50% and PEEP of 8. ABG values PaO2 78, pCO2 39, pH 7.49 showing metabolic alkalosis. She is on propofol at 50 mcg/kg/min, vital AF at goal of 48, 0.9 normal saline at 10 mL/h and insulin at 4 units/h. Chest x-ray shows mild left lower lobe infiltrate. Patient failed DIS SBT performed yesterday. Today the patient did not do well when she was put on pressure support of 8, CPAP 5. Weaning parameters showed RR 19, VT 425, and nif 22, RSBI of 47, thin white secretions and cuff leak and blood gases pO2 49.4, pCO2 34, pH 7.47. Tube feeds were held during weaning parameters. At this time the patient cannot be extubated and has been put on her prior vent settings. Repeat blood cultures collected on 07/23 have shown no growth in 72 hours. Labs show WBC 16.1, hemoglobin 12.5, platelets 280, sodium 138, potassium 4.2, chloride 104, bicarb 30, BUN 30, creatinine 0.56, glucose 231, AST 43, ALT 1 1 ALP 148, total protein 5.5, globulin 3.3, total bili 0.6, calcium 9.6. Objective - Vital Signs Vital signs: Vital Signs Temp 99.1 F 07/27/24 08:00 Pulse 82 07/27/24 10:00 Resp 15 07/27/24 10:00 BP 117/81 07/27/24 10:00 Pulse Ox 91 L 07/27/24 10:00 FiO2 50 07/27/24 10:17 Intake & Output 07/26/24 07/27/24 07/27/24 18:59 06:59 18:59 Intake Total 1206.771 540.816 157.933 Output Total 705 900 575 Balance 501.771 -359.184 -417.067 Weight 76 kg Intake: IV 438 286 74 Piperacillin-Tazobactam 3 100 .375 gm In Sodium Chloride 0.9% 100 ml @ 25 mls/hr IVPB Q8HR JESSICA Rx# :[id number] Pressure bags 78 66 24 Sodium Chloride 0.9% 1, 260 220 50 000 ml @ 20 mls/hr IV . Q24H JESSICA Rx#:[id number] Intake, IV Titration 288.771 254.816 5.933 Amount Insulin Regular 100 unit 62.675 54.816 5.933 In Sodium Chloride 0.9% 100 ml @ Titrate IV .Q0M JESSICA Rx#:[id number] propofoL 1,000 mg In 226.096 200 Empty Bag 1 bag @ 15 MCG/ KG/MIN 6.491 mls/hr IV . [id number] JESSICA Rx#:[id number] Tube Feeding 480 48 Other 30 Output: Urine 705 900 575 Other: Voiding Method Indwelling Catheter Indwelling Catheter ABP, PAP, CO, CI - Last Documented Arterial Blood Pressure 137/67 - Exam GENERAL EXAM: Intubated and mechanically ventilated, sedated HEAD: Normocephalic. EYES: Normal reaction of pupils, equal size. NOSE: Clear with pink turbinates. THROAT: No erythema or exudates. Endotracheal tube and orogastric tube are intact NECK: No masses, no JVD. CHEST: No chest wall deformity. LUNGS: Diminished bilaterally CVS: S1 and S2 normal ABDOMEN: No hepatosplenomegaly, normal bowel sounds, no guarding or rigidity. SKIN: No rashes CENTRAL NERVOUS SYSTEM: Cannot assess EXTREMITIES: No clubbing edema or cyanosis - Labs CBC & Chem 7: 07/27/24 04:38 07/27/24 04:38 Labs: Abnormal Lab Results - Last 24 Hours (Table) 07/26/24 07/26/24 07/26/24 Range/Units 12:09 13:57 15:23 WBC (3.8-10.6) k/uL RBC (3.80-5.40) m/uL MCV (80.0-100.0) fL MCH (25.0-35.0) pg Neutrophils # (1.3-7.7) k/uL Macrocytosis ABG pH (7.35-7.45) ABG pO2 (83-108) mmHg ABG HCO3 (21-25) mmol/L ABG Total CO2 (19-24) mmol/L BUN (7-17) mg/dL Glucose (74-99) mg/dL POC Glucose (mg/dL) 137 H 205 H 234 H (70-110) mg/dL AST (14-36) U/L ALT (4-34) U/L Alkaline Phosphatase (38-126) U/L Total Protein (6.3-8.2) g/dL Albumin (3.5-5.0) g/dL 07/26/24 07/26/24 07/26/24 Range/Units 16:45 17:42 18:44 WBC (3.8-10.6) k/uL RBC (3.80-5.40) m/uL MCV (80.0-100.0) fL MCH (25.0-35.0) pg Neutrophils # (1.3-7.7) k/uL Macrocytosis ABG pH (7.35-7.45) ABG pO2 (83-108) mmHg ABG HCO3 (21-25) mmol/L ABG Total CO2 (19-24) mmol/L BUN (7-17) mg/dL Glucose (74-99) mg/dL POC Glucose (mg/dL) 248 H 243 H 235 H (70-110) mg/dL AST (14-36) U/L ALT (4-34) U/L Alkaline Phosphatase (38-126) U/L Total Protein (6.3-8.2) g/dL Albumin (3.5-5.0) g/dL 07/26/24 07/26/24 07/26/24 Range/Units 19:58 21:07 22:07 WBC (3.8-10.6) k/uL RBC (3.80-5.40) m/uL MCV (80.0-100.0) fL MCH (25.0-35.0) pg Neutrophils # (1.3-7.7) k/uL Macrocytosis ABG pH (7.35-7.45) ABG pO2 (83-108) mmHg ABG HCO3 (21-25) mmol/L ABG Total CO2 (19-24) mmol/L BUN (7-17) mg/dL Glucose (74-99) mg/dL POC Glucose (mg/dL) 242 H 231 H 208 H (70-110) mg/dL AST (14-36) U/L ALT (4-34) U/L Alkaline Phosphatase (38-126) U/L Total Protein (6.3-8.2) g/dL Albumin (3.5-5.0) g/dL 07/26/24 07/27/24 07/27/24 Range/Units 23:03 00:18 02:00 WBC (3.8-10.6) k/uL RBC (3.80-5.40) m/uL MCV (80.0-100.0) fL MCH (25.0-35.0) pg Neutrophils # (1.3-7.7) k/uL Macrocytosis ABG pH (7.35-7.45) ABG pO2 (83-108) mmHg ABG HCO3 (21-25) mmol/L ABG Total CO2 (19-24) mmol/L BUN (7-17) mg/dL Glucose (74-99) mg/dL POC Glucose (mg/dL) 213 H 173 H 116 H (70-110) mg/dL AST (14-36) U/L ALT (4-34) U/L Alkaline Phosphatase (38-126) U/L Total Protein (6.3-8.2) g/dL Albumin (3.5-5.0) g/dL 07/27/24 07/27/24 07/27/24 Range/Units 03:13 04:38 04:38 WBC 16.1 H (3.8-10.6) k/uL RBC 3.32 L (3.80-5.40) m/uL MCV 116.9 H (80.0-100.0) fL MCH 37.6 H (25.0-35.0) pg Neutrophils # 12.4 H (1.3-7.7) k/uL Macrocytosis Marked A ABG pH (7.35-7.45) ABG pO2 (83-108) mmHg ABG HCO3 (21-25) mmol/L ABG Total CO2 (19-24) mmol/L BUN 30 H (7-17) mg/dL Glucose 148 H (74-99) mg/dL POC Glucose (mg/dL) 128 H (70-110) mg/dL AST 43 H (14-36) U/L ALT 116 H (4-34) U/L Alkaline Phosphatase 148 H (38-126) U/L Total Protein 5.5 L (6.3-8.2) g/dL Albumin 3.3 L (3.5-5.0) g/dL 07/27/24 07/27/24 07/27/24 Range/Units 04:39 05:30 07:02 WBC (3.8-10.6) k/uL RBC (3.80-5.40) m/uL MCV (80.0-100.0) fL MCH (25.0-35.0) pg Neutrophils # (1.3-7.7) k/uL Macrocytosis ABG pH 7.49 H (7.35-7.45) ABG pO2 78 L (83-108) mmHg ABG HCO3 30 H (21-25) mmol/L ABG Total CO2 31 H (19-24) mmol/L BUN (7-17) mg/dL Glucose (74-99) mg/dL POC Glucose (mg/dL) 154 H 153 H (70-110) mg/dL AST (14-36) U/L ALT (4-34) U/L Alkaline Phosphatase (38-126) U/L Total Protein (6.3-8.2) g/dL Albumin (3.5-5.0) g/dL 07/27/24 07/27/24 Range/Units 08:13 09:46 WBC (3.8-10.6) k/uL RBC (3.80-5.40) m/uL MCV (80.0-100.0) fL MCH (25.0-35.0) pg Neutrophils # (1.3-7.7) k/uL Macrocytosis ABG pH (7.35-7.45) ABG pO2 (83-108) mmHg ABG HCO3 (21-25) mmol/L ABG Total CO2 (19-24) mmol/L BUN (7-17) mg/dL Glucose (74-99) mg/dL POC Glucose (mg/dL) 189 H 231 H (70-110) mg/dL AST (14-36) U/L ALT (4-34) U/L Alkaline Phosphatase (38-126) U/L Total Protein (6.3-8.2) g/dL Albumin (3.5-5.0) g/dL Microbiology - Last 24 Hours (Table) 07/23/24 08:45 Blood Culture - Preliminary Blood Assessment and Plan Assessment: Acute hypoxic respiratory failure secondary to cardiac arrest Covid 19 pneumonia Underlying COPD Hyperglycemia Acute systolic congestive heart failure Chronic ongoing tobacco dependence History of bipolar disorder History of fibromyalgia Generalized anxiety disorder Plan: Weaning parameters performed today with RSBI 47 and pO2 49.4. Patient is not ready to be extubated today. Continue albuterol inhaler 2 puffs 4 times daily as needed, Solu-Medrol 60 mg every 6 hours Nutritional support- Vital AF at goal of 48. Propofol 50mcg/kg/min Insulin 4U/hr Aspirin 81 mg, atorvastatin 40 mg daily Quetiapine 300 mg at bedtime Continue to monitor daily x-rays of the chest and daily ABGs and address diuretics accordingly GI prophylaxis: Pantoprazole 40 mg IVP daily DVT prophylaxis: Enoxaparin 40 mg SQ daily Will continue to follow, prognosis is guarded Critical care time is 35 minutes Time with Patient: Greater than 30
[2024-07-27 11:07] LABS: Glucose,Whole Blood 186 mg/dL (70-110)
[2024-07-27 12:18] LABS: Glucose,Whole Blood 171 mg/dL (70-110)
[2024-07-27 13:45] LABS: Glucose,Whole Blood 137 mg/dL (70-110)
[2024-07-27 14:39] LABS: Glucose,Whole Blood 166 mg/dL (70-110)
[2024-07-27 16:16] LABS: Glucose,Whole Blood 214 mg/dL (70-110)
[2024-07-27 17:15] LABS: Glucose,Whole Blood 256 mg/dL (70-110)
[2024-07-27 18:36] LABS: Glucose,Whole Blood 262 mg/dL (70-110)
[2024-07-27 21:16] LABS: Glucose,Whole Blood 243 mg/dL (70-110)
--- NOTE | 2024-07-27 21:39 | PN ---
PROGRESS NOTE DATE OF SERVICE: 07/24/2024 CHIEF COMPLAINT: Cardiorespiratory arrest with acute respiratory failure and congestive heart failure. HISTORY OF PRESENT ILLNESS: This lady remains ventilator dependent. She is otherwise fairly stable. She did go into atrial fibrillation and blood sugars are fluctuating somewhat. PHYSICAL EXAMINATION: VITAL SIGNS: Normal at this time. CHEST: There are good breath sounds bilaterally. She is in sinus rhythm. EXTREMITIES: Perfused. IMPRESSION: 1. Status post cardiorespiratory arrest. 2. Acute respiratory failure. 3. Congestive heart failure. 4. Elevated blood sugars. 5. Atrial fibrillation. PLAN: No change in her management at this time. MMODL / IJN: [id number] /
--- NOTE | 2024-07-27 22:09 | PN ---
PROGRESS NOTE DATE OF SERVICE: 07/25/2024 CHIEF COMPLAINT: Status post cardiac arrest. HISTORY OF PRESENT ILLNESS: This lady's condition is just about the same. She still is on the ventilator. Her vital signs have been stable, but she has not been able to be weaned. PHYSICAL EXAMINATION: GENERAL: Hydration and peripheral perfusion are normal. CHEST: Demonstrates no rales or rhonchi. IMPRESSION: 1. Cardiorespiratory arrest. 2. Bronchial pneumonia. 3. COVID. 4. Chronic obstructive pulmonary disease. 5. Congestive heart failure. PLAN: Continue with management in ICU and follow with Pulmonology and Cardiology. MMODL / IJN: [id number] /
[2024-07-27 22:15] LABS: Glucose,Whole Blood 218 mg/dL (70-110)
--- NOTE | 2024-07-27 22:55 | PN ---
PROGRESS NOTE DATE OF SERVICE: 07/26/2024 CHIEF COMPLAINT: Cardiorespiratory failure on a ventilator. HISTORY OF PRESENT ILLNESS: This lady is just about the same. She has not been able to be weaned. Other than that, there has been very little change. PHYSICAL EXAMINATION: GENERAL: Color is good. CHEST: Breath sounds are normal bilaterally. CARDIAC: Normal. ABDOMEN: Soft. IMPRESSION: 1. Status post cardiorespiratory arrest. 2. Bronchitis. 3. COVID. 4. Congestive heart failure. 5. Chronic obstructive pulmonary disease. PLAN: Continue with ICU support management until she is stable enough to be moved to step- down for. MMODL / IJN: [id number] /
--- NOTE | 2024-07-27 23:16 | PN ---
PROGRESS NOTE DATE OF SERVICE: 07/27/2024 CHIEF COMPLAINT: Status post cardiorespiratory arrest with COVID. HISTORY OF PRESENT ILLNESS: This lady is just about the same. She still cannot be weaned. PHYSICAL EXAMINATION: VITAL SIGNS: Normal. She is still on the ventilator. CHEST: Breath sounds are heard bilaterally. CARDIAC: Normal. IMPRESSION: 1. Status post cardiorespiratory arrest. 2. Bronchitis. 3. Pneumonitis. 4. COVID. 5. Congestive heart failure. 6. Chronic obstructive pulmonary disease. PLAN: No change in her management at this time with hopes that she can be extubated in the next several days. MMODL / IJN: [id number] /
[2024-07-27 23:19] LABS: Glucose,Whole Blood 203 mg/dL (70-110)
[2024-07-28 00:41] LABS: Glucose,Whole Blood 213 mg/dL (70-110)
[2024-07-28 01:03] LABS: ABG PO2 49 mmHg (83-108)
[2024-07-28 01:32] LABS: Glucose,Whole Blood 199 mg/dL (70-110)
[2024-07-28 02:39] LABS: Glucose,Whole Blood 196 mg/dL (70-110)
[2024-07-28 03:41] LABS: Glucose,Whole Blood 180 mg/dL (70-110)
[2024-07-28 05:07] LABS: Glucose,Whole Blood 138 mg/dL (70-110)
[2024-07-28 05:27] LABS: ABG Base Excess 3.6 mmol/L; ABG HCO3 28 mmol/L (21-25); ABG PCO2 41 mmHg (35-45); ABG PH 7.45 (7.35-7.45); ABG PO2 72 mmHg (83-108); ABG TCO2 29 mmol/L (19-24); Allen Test Performed? Yes
[2024-07-28 05:28] LABS: Basophils % (A) 0 %; Eosinophils % (A) 0 %; HCT 35.3 % (34.0-46.0); HGB 11.6 gm/dL (11.4-16.0); Lymphocytes # (A) 1.2 k/uL (1.0-4.8); Lymphocytes % (A) 8 %; MCH 38.4 pg (25.0-35.0); MCHC 32.9 g/dL (31.0-37.0); MCV 116.7 fL (80.0-100.0); Mean Platelet Volume 10.4; Monocytes # (A) 0.5 k/uL (0-1.0); Monocytes % (A) 4 %; Neutrophils % (A) 87 %; Platelet Count 269 k/uL (150-450); RBC 3.03 m/uL (3.80-5.40); RDW 13.4 % (11.5-15.5); WBC 14.9 k/uL (3.8-10.6)
[2024-07-28 05:30] LABS: Macrocytosis Marked
[2024-07-28 05:52] LABS: African American GFR (CKD) >90 (>60 ml/min/1.73 sqM); Anion Gap 4 mmol/L; Blood Urea Nitrogen 31 mg/dL (7-17); Calcium 9.8 mg/dL (8.4-10.2); Carbon Dioxide 29 mmol/L (22-30); Chloride 105 mmol/L (98-107); Glucose 139 mg/dL (74-99); Non-African American GFR(CKD) >90 (>60 ml/min/1.73 sqM); Potassium 4.3 mmol/L (3.5-5.1); Sodium 138 mmol/L (137-145)
[2024-07-28 06:24] LABS: Glucose,Whole Blood 191 mg/dL (70-110)
[2024-07-28 07:06] LABS: Glucose,Whole Blood 202 mg/dL (70-110)
--- NOTE | 2024-07-28 08:16 | XR ---
EXAMINATION TYPE: XR chest 1V portable DATE OF EXAM: 07/28/2024 5:27 AM CLINICAL INDICATION: Female, 54 years old with history of mechanical ventilation; [facility] COMPARISON: Chest radiograph from one day prior. TECHNIQUE: XR chest 1V portable Frontal view of the chest. FINDINGS: Lungs/Pleura: No evidence of focal consolidation or pneumothorax. Blunting of the costophrenic angles is present. Pulmonary vascularity: Unremarkable. Heart/mediastinum: Cardiomediastinal silhouette is unremarkable. Musculoskeletal: No acute osseous pathology. Other findings: None Lines/Tubes: Endotracheal tube with distal tip 6.3 cm above the alexys. Nasogastric tube with its distal tip and side-port projecting under the diaphragm. Left central venous catheter with distal tip at the cavoatrial junction. IMPRESSION: Stable exam with basilar atelectasis and small pleural effusions. [facility], , 07/28/2024 8:14 AM
[2024-07-28 08:19] LABS: Glucose,Whole Blood 181 mg/dL (70-110)
[2024-07-28 09:09] LABS: Glucose,Whole Blood 181 mg/dL (70-110)
[2024-07-28 10:22] LABS: ABG Base Excess 3.8 mmol/L; ABG HCO3 28 mmol/L (21-25); ABG Oxygen Saturation 95.3 % (94-97); ABG PCO2 39 mmHg (35-45); ABG PH 7.46 (7.35-7.45); ABG PO2 73 mmHg (83-108); ABG TCO2 29 mmol/L (19-24)
[2024-07-28 10:23] LABS: Glucose,Whole Blood 169 mg/dL (70-110)
[2024-07-28 10:24] LABS: Allen Test Performed? no
--- NOTE | 2024-07-28 10:36 | P.PN ---
Subjective Progress Note Date: 07/28/24 Principal diagnosis: Acute COVID-19 infection and cardiopulmonary arrest This is a 54-year-old female patient with a history of chronic obstructive pulmonary disease, chronic and ongoing tobacco dependence, fibromyalgia, hypertension, bipolar disorder, anxiety who presented here to the emergency room on 07/17/2024 with multiple complaints including burning with urination, cough congestion weakness. Tmax of 102.4. She was found to have a COVID-19 infection. She was found to be hypoxemic. She is on 4 L nasal cannula now. She is febrile. Count 9.6. Hemoglobin 12.2. Platelets 180. D-dimer 1.00. Sodium 142. Potassium 4.0. Bicarb 20. BUN 11. Creatinine 0.7. Glucose 158. AST 144. ALT 102. proBNP 4830. Troponin negative x 1. Procalcitonin negative at 0.20. She is initiated on Decadron and vitamin supplements. She is seen today July 21, 2024 in follow-up after developing increasing shortness of breath. She is maintaining O2 saturations in the 90s on 4 L/min per nasal cannula. Patient was evaluated today on 07/22/2024, I saw this patient yesterday for her COVID-19 infection, patient was more symptomatic than expected based on her physical examination, hence I recommended a CT angiogram of the chest which came back negative for pulmonary embolism, it did show evidence of scattered airspace opacities consistent with pneumonia, multifocal groundglass opacities were also noted. There is also evidence of small bilateral pleural effusions. During my evaluation, patient was on 4 L nasal cannula, and did not seem to be in distress. at 20:22 on 07/21 patient had a sudden episode of unresponsiveness. According to the nurse patient was unresponsive and pulseless. CODE BLUE was immediately activated and CPR was initiated. Apparently she was in asystole patient received 1 dose of epinephrine, went into ventricular fibrillation and she received 1 shock at 120 J. Another V-fib episode was noted shortly after and 200 J were delivered. Patient had subsequent return of spontaneous circulation at 2027. In the meantime the patient was intubated by [facility] and she was sent to the ICU, and I was notified about the patient that she is in the U. Discussed the vent settings the ABG reviewed her chest x-ray which clearly showed evidence of pulmonary edema or possibly aspiration pneumonia I recommended Lasix, and I also recommended antibiotic which was started in the form of Zosyn. Patient is now in the ICU. She is on assist-control rate of 20 tidal volume 450 FiO2 100% and PEEP of 8 ABG showed a pO2 of 108 pCO2 34 pH of 7.59. Echocardiogram this morning showed global systolic dysfunction, ejection fraction estimated to be 45%. Patient was also noted to have mild aortic regurgitation. Troponin today is 0.592, patient was seen by cardiology, EKG showed diffuse nonspecific ST and T wave changes and the recommendation is to continue Lasix specially with her LV dysfunction. BNP level is pending, Lasix dose was increased after reviewing her chest x-ray from 20 mg to 40 mg IV push every 8 hours. Patient is also on heparin. And she is on antibiotics in the form of Zosyn. Patient is also on the COVID-19 cocktail, the findings on her chest x-ray are clinically not findings of COVID-19 pneumonia labs today showed WBC of 7.7 hemoglobin 12.8 procalcitonin level on admission was 0.2, basically unremarkable. Her basic metabolic profile is normal renal profile is normal potassium is a bit low at 3.3 being addressed accordingly Patient was seen today on 07/23/2024, remains in the ICU intubated and mechanically ventilated. Patient is on assist-control rate of 16 tidal volume 450 FiO2 60% PEEP of 12 ABG remains marginal with a pO2 of 55 pCO2 40 pH of 7.57 chest x-ray is showing significant improvement in her infiltrates/pulmonary edema over the last 24 hours, patient has been left on Lasix all along. Patient is requiring a small dose of norepinephrine for low blood pressure norepinephrine at 0.04 mcg/kg/min today I recommended holding the Lasix and starting IV fluid at 125 cc per hour. Patient remains on propofol at 25 mcg/kg/min and Versed at 5 mg/h. Today I am recommending that we taper and discontinue propofol, and maintain the patient on Versed even if we have to increase the dose. Steroids while she was on Decadron, and I am recommending Solu-Medrol I am also recommended that we continue Zosyn. Lasix is now on hold. Heparin still on board as ordered by cardiology. Echocardiogram did show evidence of mild LV dysfunction chest x-ray improved with diuretics. WBC 12.6 hemoglobin 13.4. PTT was 34 today. Heparin was placed on hold temporarily until a line was placed/triple-lumen catheter and will be restarted renal profile is normal potassium is a bit low at 3.3 being addressed accordingly Patient was reevaluated today on 07/24/2024, remains in the ICU, intubated and mechanically ventilated, ABG is marginal at best. Remains on assist-control rate of 16 tidal volume 450 FiO2 60% PEEP of 12 ABG showed a pO2 of 66 pCO2 40 pH of 7.52. Patient remains on heparin also on insulin at 5 units/h, Versed at 5 mg/h norepinephrine 0.03 mcg/kg/min, propofol 20 mcg/kg/min, remains on vital AF at 20 cc/h, patient is also receiving Zosyn empirically. She did receive Lasix this morning 40 mg IV push as her chest x-ray is showing slight worsening of her interstitial edema/infiltrates WBC is 15.1 hemoglobin is 13. Basic metabolic profile is normal bicarb is 34 BUN is 27 creatinine 0.76 blood sugar is 200 Progress note dated July 25, 2024. Patient was evaluated today, remains in the ICU is intubated and mechanically ventilated. Remains on assist-control rate of 16, tidal volume 450, FiO2 60%, PEEP 12. ABG shows pO2 84, pCO2 42, pH 7.47. Plan to decrease tidal volume.She remains on propofol at 30 mcg/kg/min, norepinephrine at 0.03 mcg/kg/min, Vital AF at 40cc/h with goal of 40, 0.9 NS at 20 mL per hr and Zosyn. Pro-Jesse has been ordered today, if negative Zosyn will be discontinued. Chest x-ray done today shows low lung volumes with generalized hazy appearance which could represent atelectasis versus pulmonary edema. As per cardiology non-epinephrine was weaned but the patient had to be put back on it. Cortisol and TSH have been ordered today. TSH is 0.158. Labs show WBC 18.2, hemoglobin 12.3, platelet 244, sodium 141, potassium 4, chloride 103, bicarb 30, BUN 37, creatinine 0.75, glucose 152, A1c 6.1. Progress note dated July 26, 2024. Patient was seen today in the ICU, remains intubated and mechanically ventilated. Patient is on assist-control rate of 16, tidal volume 350, FiO2 50%, PEEP changed today from 12 to 8. ABG shows pO2 88, pCO2 44, pH 7.45. She is on propofol at 35 mics per keg per minute, vital AF at goal of 40 cc/h, 0.9 normal saline at 20 mL/h and insulin 5 units/h. Norepinephrine was weaned Pro- Jesse is 0.41 hence Zosyn has been discontinued. Chest x-ray shows no acute cardiopulmonary disease process. Repeat echo shows improved LV size, ejection fraction 65% and thickened pericardium. Plan is to wake her up and perform sp ontaneous breathing trial with pressure support 06/13. Labs show TSH 0.158, free T4.76, cortisol 11.1, WBC 13.9, hemoglobin 11.6, platelet count 217, sodium 140, potassium 4.3, chloride 105, bicarb 30, BUN 40, creatinine 0.66, glucose 169, AST 53, ALT 126, ALP 133, total protein 5.2 and albumin 3.1. Progress note dated July 27, 2024. Patient evaluated in the ICU, remains intubated and mechanically ventilated. The patient is on assist-control rate of 16, tidal volume 350, FiO2 50% and PEEP of 8. ABG values PaO2 78, pCO2 39, pH 7.49 showing metabolic alkalosis. She is on propofol at 50 mcg/kg/min, vital AF at goal of 48, 0.9 normal saline at 10 mL/h and insulin at 4 units/h. Chest x-ray shows mild left lower lobe infiltrate. Patient failed DIS SBT performed yesterday. Today the patient did not do well when she was put on pressure support of 8, CPAP 5. Weaning parameters showed RR 19, VT 425, and nif 22, RSBI of 47, thin white secretions and cuff leak and blood gases pO2 49.4, pCO2 34, pH 7.47. Tube feeds were held during weaning parameters. At this time the patient cannot be extubated and has been put on her prior vent settings. Repeat blood cultures collected on 07/23 have shown no growth in 72 hours. Labs show WBC 16.1, hemoglobin 12.5, platelets 280, sodium 138, potassium 4.2, chloride 104, bicarb 30, BUN 30, creatinine 0.56, glucose 231, AST 43, ALT 1 1 ALP 148, total protein 5.5, globulin 3.3, total bili 0.6, calcium 9.6. Progress note dated July 28, 2024. Patient seen in the ICU, remains intubated and mechanically ventilated. The patient is on assist-control rate of 16, tidal volume 350, FiO2 50% and PEEP of 8. ABG values show PaO2 72, pCO2 41, pH 7.45 which shows mild metabolic alkalosis due to prerenal azotemia. Last night her blood pressure dropped a little so her propofol was decreased to 45 mcg/kg/min. She continues to be on vital AF at goal of 48, 0.9 normal saline at 20 mL/h. Chest x-ray looks much better than yesterday. Patient was put on pressure support of 8 and 0.5 yesterday along with a full set of weaning parameters but at the time was determined that she is not fit to be extubated. A trial of PSV of 8 and CPAP of 5 along with set of weaning parameters at 30 minutes will be repeated today. ET tube to be pushed down by 1 to 1.5 cm. She is on Ventolin and Solu-Medrol. Labs showed WBC 14.9, hemoglobin 8.6, platelet 269, sodium 138, potassium 4.3, chloride 105, bicarb 29, BUN 31, creatinine 0.55, glucose 139. Objective - Vital Signs Vital signs: Vital Signs Temp 99.5 F 07/28/24 08:00 Pulse 77 07/28/24 09:00 Resp 19 07/28/24 09:00 BP 115/63 07/28/24 09:00 Pulse Ox 92 L 07/28/24 09:00 FiO2 50 07/28/24 09:47 Intake & Output 07/27/24 07/28/24 07/28/24 18:59 06:59 18:59 Intake Total 8416.069 1667.891 193.028 Output Total 1325 590 450 Balance -302.334 667.891 -256.972 Weight 78.3 kg Intake: IV 218 286 26 Pressure bags 78 66 6 Sodium Chloride 0.9% 1, 140 220 20 000 ml @ 20 mls/hr IV . Q24H JESSICA Rx#:[id number] Intake, IV Titration 234.666 318.891 119.028 Amount Insulin Regular 100 unit 34.666 79.699 14.417 In Sodium Chloride 0.9% 100 ml @ Titrate IV .Q0M JESSICA Rx#:[id number] propofoL 1,000 mg In 200 239.192 104.611 Empty Bag 1 bag @ 15 MCG/ KG/MIN 6.491 mls/hr IV . [id number] JESSICA Rx#:[id number] Tube Feeding 480 533 48 Other 90 120 Output: Urine 1325 590 450 Other: Voiding Method Indwelling Catheter Indwelling Catheter Indwelling Catheter ABP, PAP, CO, CI - Last Documented Arterial Blood Pressure 121/58 - Exam GENERAL EXAM: Intubated and mechanically ventilated, sedated HEAD: Normocephalic. EYES: Normal reaction of pupils, equal size. NOSE: Clear with pink turbinates. THROAT: No erythema or exudates. Endotracheal tube and orogastric tube are intact NECK: No masses, no JVD. CHEST: No chest wall deformity. LUNGS: Diminished bilaterally CVS: S1 and S2 normal ABDOMEN: No hepatosplenomegaly, normal bowel sounds, no guarding or rigidity. SKIN: No rashes CENTRAL NERVOUS SYSTEM: Cannot assess EXTREMITIES: No clubbing edema or cyanosis - Labs CBC & Chem 7: 07/28/24 04:45 07/28/24 04:45 Labs: Abnormal Lab Results - Last 24 Hours (Table) 07/27/24 07/27/24 07/27/24 Range/Units 09:48 11:06 12:18 WBC (3.8-10.6) k/uL RBC (3.80-5.40) m/uL MCV (80.0-100.0) fL MCH (25.0-35.0) pg Neutrophils # (1.3-7.7) k/uL Macrocytosis ABG pH 7.47 H (7.35-7.45) ABG pO2 49 L* (83-108) mmHg ABG HCO3 29 H (21-25) mmol/L ABG Total CO2 30 H (19-24) mmol/L ABG O2 Saturation 85.9 L (94-97) % Hemoglobin (11.4-16.0) gm/dL BUN (7-17) mg/dL Glucose (74-99) mg/dL POC Glucose (mg/dL) 186 H 171 H (70-110) mg/dL 07/27/24 07/27/24 07/27/24 Range/Units 13:43 14:37 16:14 WBC (3.8-10.6) k/uL RBC (3.80-5.40) m/uL MCV (80.0-100.0) fL MCH (25.0-35.0) pg Neutrophils # (1.3-7.7) k/uL Macrocytosis ABG pH (7.35-7.45) ABG pO2 (83-108) mmHg ABG HCO3 (21-25) mmol/L ABG Total CO2 (19-24) mmol/L ABG O2 Saturation (94-97) % Hemoglobin (11.4-16.0) gm/dL BUN (7-17) mg/dL Glucose (74-99) mg/dL POC Glucose (mg/dL) 137 H 166 H 214 H (70-110) mg/dL 07/27/24 07/27/24 07/27/24 Range/Units 17:15 18:34 21:15 WBC (3.8-10.6) k/uL RBC (3.80-5.40) m/uL MCV (80.0-100.0) fL MCH (25.0-35.0) pg Neutrophils # (1.3-7.7) k/uL Macrocytosis ABG pH (7.35-7.45) ABG pO2 (83-108) mmHg ABG HCO3 (21-25) mmol/L ABG Total CO2 (19-24) mmol/L ABG O2 Saturation (94-97) % Hemoglobin (11.4-16.0) gm/dL BUN (7-17) mg/dL Glucose (74-99) mg/dL POC Glucose (mg/dL) 256 H 262 H 243 H (70-110) mg/dL 07/27/24 07/27/24 07/28/24 Range/Units 22:15 23:17 00:40 WBC (3.8-10.6) k/uL RBC (3.80-5.40) m/uL MCV (80.0-100.0) fL MCH (25.0-35.0) pg Neutrophils # (1.3-7.7) k/uL Macrocytosis ABG pH (7.35-7.45) ABG pO2 (83-108) mmHg ABG HCO3 (21-25) mmol/L ABG Total CO2 (19-24) mmol/L ABG O2 Saturation (94-97) % Hemoglobin (11.4-16.0) gm/dL BUN (7-17) mg/dL Glucose (74-99) mg/dL POC Glucose (mg/dL) 218 H 203 H 213 H (70-110) mg/dL 07/28/24 07/28/24 07/28/24 Range/Units 01:31 02:38 03:39 WBC (3.8-10.6) k/uL RBC (3.80-5.40) m/uL MCV (80.0-100.0) fL MCH (25.0-35.0) pg Neutrophils # (1.3-7.7) k/uL Macrocytosis ABG pH (7.35-7.45) ABG pO2 (83-108) mmHg ABG HCO3 (21-25) mmol/L ABG Total CO2 (19-24) mmol/L ABG O2 Saturation (94-97) % Hemoglobin (11.4-16.0) gm/dL BUN (7-17) mg/dL Glucose (74-99) mg/dL POC Glucose (mg/dL) 199 H 196 H 180 H (70-110) mg/dL 07/28/24 07/28/24 07/28/24 Range/Units 04:45 04:45 05:06 WBC 14.9 H (3.8-10.6) k/uL RBC 3.03 L (3.80-5.40) m/uL MCV 116.7 H (80.0-100.0) fL MCH 38.4 H (25.0-35.0) pg Neutrophils # 13.0 H (1.3-7.7) k/uL Macrocytosis Marked A ABG pH (7.35-7.45) ABG pO2 (83-108) mmHg ABG HCO3 (21-25) mmol/L ABG Total CO2 (19-24) mmol/L ABG O2 Saturation (94-97) % Hemoglobin (11.4-16.0) gm/dL BUN 31 H (7-17) mg/dL Glucose 139 H (74-99) mg/dL POC Glucose (mg/dL) 138 H (70-110) mg/dL 07/28/24 07/28/24 07/28/24 Range/Units 05:23 06:23 07:05 WBC (3.8-10.6) k/uL RBC (3.80-5.40) m/uL MCV (80.0-100.0) fL MCH (25.0-35.0) pg Neutrophils # (1.3-7.7) k/uL Macrocytosis ABG pH (7.35-7.45) ABG pO2 72 L (83-108) mmHg ABG HCO3 28 H (21-25) mmol/L ABG Total CO2 29 H (19-24) mmol/L ABG O2 Saturation (94-97) % Hemoglobin 11.3 L (11.4-16.0) gm/dL BUN (7-17) mg/dL Glucose (74-99) mg/dL POC Glucose (mg/dL) 191 H 202 H (70-110) mg/dL 07/28/24 07/28/24 Range/Units 08:17 09:07 WBC (3.8-10.6) k/uL RBC (3.80-5.40) m/uL MCV (80.0-100.0) fL MCH (25.0-35.0) pg Neutrophils # (1.3-7.7) k/uL Macrocytosis ABG pH (7.35-7.45) ABG pO2 (83-108) mmHg ABG HCO3 (21-25) mmol/L ABG Total CO2 (19-24) mmol/L ABG O2 Saturation (94-97) % Hemoglobin (11.4-16.0) gm/dL BUN (7-17) mg/dL Glucose (74-99) mg/dL POC Glucose (mg/dL) 181 H 181 H (70-110) mg/dL Assessment and Plan Assessment: Acute hypoxic respiratory failure secondary to cardiac arrest Covid 19 pneumonia Underlying COPD Hyperglycemia Acute systolic congestive heart failure Chronic ongoing tobacco dependence History of bipolar disorder History of fibromyalgia Generalized anxiety disorder Plan: PSV 8, CPAP 5 and a full set of weaning parameters at 30 minutes to be repeated today Continue albuterol inhaler 2 puffs 4 times daily as needed, Solu-Medrol 60 mg every 6 hours Nutritional support- Vital AF at goal of 48. Propofol 45 mcg/kg/min Insulin 6 U/hr Aspirin 81 mg, atorvastatin 40 mg daily Quetiapine 300 mg at bedtime Continue to monitor daily x-rays of the chest and daily ABGs and address diuretics accordingly GI prophylaxis: Pantoprazole 40 mg IVP daily DVT prophylaxis: Enoxaparin 40 mg SQ daily Will continue to follow, prognosis is guarded Critical care time is 35 minutes Time with Patient: Greater than 30
[2024-07-28 11:13] LABS: Glucose,Whole Blood 146 mg/dL (70-110)
[2024-07-28] MEDS: LORazepam 2 MG/ML INJ IV STA (12:16)
[2024-07-28 12:25] LABS: Glucose,Whole Blood 112 mg/dL (70-110)
[2024-07-28] MEDS ORDERED: DEXTROSE 50% SYRINGE 50 ML IVP PRN ×2 (13:44)
[2024-07-28 14:14] VITALS: BMI 29.6
--- NOTE | 2024-07-28 16:25 | P.PN ---
Subjective Progress Note Date: 07/26/24 This is a 54-year-old female patient with a past medical history significant for hypertension and COPD who requested to see in the ICU for further evaluation after change in mental status and what it seems to be "asystole" on the floor. The patient currently is intubated on mechanical ventilation and history was taken from the chart. The patient presented and was admitted to the hospital with COVID-related symptoms. Subsequently she was on the floor when she developed change in mental status and "asystole". No further details and no documentation of any asystole at this point. Subsequently the patient was intubated and placed on mechanical ventilation and she was brought to the intensive care unit. There was a concern about pulmonary edema and she was given Lasix. She underwent further evaluation including a chest x-ray which showed pulmonary vascular congestions and NT proBNP came in to be elevated troponin came in to be unremarkable and the rest of the blood work overall came in to be unremarkable including CBC and BMP. The EKG showed sinus mechanism with diffuse nonspecific ST and T wave abnormalities. No history of coronary artery disease or congestive heart failure or cardiac arrhythmia the patient never seen by a occupational medicine officer in the past. She does have hypertension and COPD. The physical examination is remarkable for regular rhythm with a soft systolic murmur at the right upper sternal border with diminished breathing sounds bilaterally and bilateral rhonchi and mild bilateral lower extremities edema noted. July 23, 2024 The patient was seen and evaluated this morning which she continues to be intubated on mechanical ventilation. She is still on small dose of norepinephrine. Otherwise she has been maintaining normal sinus mechanism. The echo showed mild cardiomyopathy with EF around 45% with global hypokinesia. The troponin came to be mildly elevated and she was started on heparin and I would continue that for additional 24-hour and total of 48 hours. Otherwise she is on aspirin. Am going to add statin to the current medical regimen which she is on lisinopril. The physical examination is remarkable for regular rhythm with a systolic murmur and diminished breathing sounds bilaterally and no edema was noted. The chest x-ray was reviewed. The blood work was reviewed. July 24, 2024 The patient was seen and evaluated this morning which she continues to be intubated on mechanical ventilation. She is on small dose of norepinephrine and at the same time she is on lisinopril. And going to stop the lisinopril. Her heart rate continues to be in the 50s and 60s. The chest x-ray did not show any acute abnormalities. Blood work showed stable hemoglobin and stable kidney function and electrolytes beside borderline low potassium. July 25, 2024 Patient continues to be on ventilator support. She continues to be on low-dose norepinephrine drip of 0.03 mcg/kg/min, labs shows WBC 18.2, hemoglobin 12.3, platelets 244, BUN 37, creatinine 0.7, TSH at 0.158, BP 113/58, heart rate 56 bpm, sinus rhythm July 26, 2024 Patient is seen at bedside. She continues to be ventilator support. She is off pressors. Vitals and labs were reviewed On exam, regular pulses, no significant murmur appreciated, ET tube in place, on vent support, good air entry bilateral lung thomason No swelling in bilateral extremity On sedation, neuroexam was not performed Assessment Cardiopulmonary arrest with "asystole" Acute hypoxic respiratory failure Heart failure of unknown etiology at this point Low blood pressure requiring norepinephrine COPD Evidence of myocardial injury Mild cardiomyopathy Plan Continue the current medical regimen including aspirin and statin Try to wean the patient from norepinephrine Follow-up on the repeated echocardiogram Consider ruling out severe CAD once patient is more hemodynamically stable. Follow-up with the patient Objective - Vital Signs Vital signs: Vital Signs Temp 99.5 F 07/28/24 08:00 Pulse 69 07/28/24 15:00 Resp 18 07/28/24 16:00 BP 118/76 07/28/24 15:00 Pulse Ox 96 07/28/24 15:00 FiO2 50 07/28/24 10:00 Intake & Output 07/27/24 07/28/24 07/28/24 18:59 06:59 18:59 Intake Total 9220.859 1779.891 215.139 Output Total 9897 245 9287 Balance -302.334 667.891 -1044.861 Weight 78.3 kg 78.3 kg Intake: IV 218 286 26 Pressure bags 78 66 6 Sodium Chloride 0.9% 1, 140 220 20 000 ml @ 20 mls/hr IV . Q24H [facility] Rx#:[id number] Intake, IV Titration 234.666 318.891 141.139 Amount Insulin Regular 100 unit 34.666 79.699 20.301 In Sodium Chloride 0.9% 100 ml @ Titrate IV .Q0M [facility] Rx#:[id number] propofoL 1,000 mg In 200 239.192 120.838 Empty Bag 1 bag @ 15 MCG/ KG/MIN 6.491 mls/hr IV . [id number] [facility] Rx#:[id number] Tube Feeding 480 533 48 Other 90 120 Output: Urine 1373 870 7346 Other: Voiding Method Indwelling Catheter Indwelling Catheter Indwelling Catheter ABP, PAP, CO, CI - Last Documented Arterial Blood Pressure 138/71 - Labs CBC & Chem 7: 07/28/24 04:45 07/28/24 04:45 Labs: Abnormal Lab Results - Last 24 Hours (Table) 07/27/24 07/27/24 07/27/24 Range/Units 09:48 17:15 18:34 WBC (3.8-10.6) k/uL RBC (3.80-5.40) m/uL MCV (80.0-100.0) fL MCH (25.0-35.0) pg Neutrophils # (1.3-7.7) k/uL Macrocytosis ABG pH 7.47 H (7.35-7.45) ABG pO2 49 L* (83-108) mmHg ABG HCO3 29 H (21-25) mmol/L ABG Total CO2 30 H (19-24) mmol/L ABG O2 Saturation 85.9 L (94-97) % Hemoglobin (11.4-16.0) gm/dL BUN (7-17) mg/dL Glucose (74-99) mg/dL POC Glucose (mg/dL) 256 H 262 H (70-110) mg/dL 07/27/24 07/27/24 07/27/24 Range/Units 21:15 22:15 23:17 WBC (3.8-10.6) k/uL RBC (3.80-5.40) m/uL MCV (80.0-100.0) fL MCH (25.0-35.0) pg Neutrophils # (1.3-7.7) k/uL Macrocytosis ABG pH (7.35-7.45) ABG pO2 (83-108) mmHg ABG HCO3 (21-25) mmol/L ABG Total CO2 (19-24) mmol/L ABG O2 Saturation (94-97) % Hemoglobin (11.4-16.0) gm/dL BUN (7-17) mg/dL Glucose (74-99) mg/dL POC Glucose (mg/dL) 243 H 218 H 203 H (70-110) mg/dL 07/28/24 07/28/24 07/28/24 Range/Units 00:40 01:31 02:38 WBC (3.8-10.6) k/uL RBC (3.80-5.40) m/uL MCV (80.0-100.0) fL MCH (25.0-35.0) pg Neutrophils # (1.3-7.7) k/uL Macrocytosis ABG pH (7.35-7.45) ABG pO2 (83-108) mmHg ABG HCO3 (21-25) mmol/L ABG Total CO2 (19-24) mmol/L ABG O2 Saturation (94-97) % Hemoglobin (11.4-16.0) gm/dL BUN (7-17) mg/dL Glucose (74-99) mg/dL POC Glucose (mg/dL) 213 H 199 H 196 H (70-110) mg/dL 07/28/24 07/28/24 07/28/24 Range/Units 03:39 04:45 04:45 WBC 14.9 H (3.8-10.6) k/uL RBC 3.03 L (3.80-5.40) m/uL MCV 116.7 H (80.0-100.0) fL MCH 38.4 H (25.0-35.0) pg Neutrophils # 13.0 H (1.3-7.7) k/uL Macrocytosis Marked A ABG pH (7.35-7.45) ABG pO2 (83-108) mmHg ABG HCO3 (21-25) mmol/L ABG Total CO2 (19-24) mmol/L ABG O2 Saturation (94-97) % Hemoglobin (11.4-16.0) gm/dL BUN 31 H (7-17) mg/dL Glucose 139 H (74-99) mg/dL POC Glucose (mg/dL) 180 H (70-110) mg/dL 07/28/24 07/28/24 07/28/24 Range/Units 05:06 05:23 06:23 WBC (3.8-10.6) k/uL RBC (3.80-5.40) m/uL MCV (80.0-100.0) fL MCH (25.0-35.0) pg Neutrophils # (1.3-7.7) k/uL Macrocytosis ABG pH (7.35-7.45) ABG pO2 72 L (83-108) mmHg ABG HCO3 28 H (21-25) mmol/L ABG Total CO2 29 H (19-24) mmol/L ABG O2 Saturation (94-97) % Hemoglobin 11.3 L (11.4-16.0) gm/dL BUN (7-17) mg/dL Glucose (74-99) mg/dL POC Glucose (mg/dL) 138 H 191 H (70-110) mg/dL 07/28/24 07/28/24 07/28/24 Range/Units 07:05 08:17 09:07 WBC (3.8-10.6) k/uL RBC (3.80-5.40) m/uL MCV (80.0-100.0) fL MCH (25.0-35.0) pg Neutrophils # (1.3-7.7) k/uL Macrocytosis ABG pH (7.35-7.45) ABG pO2 (83-108) mmHg ABG HCO3 (21-25) mmol/L ABG Total CO2 (19-24) mmol/L ABG O2 Saturation (94-97) % Hemoglobin (11.4-16.0) gm/dL BUN (7-17) mg/dL Glucose (74-99) mg/dL POC Glucose (mg/dL) 202 H 181 H 181 H (70-110) mg/dL 07/28/24 07/28/24 07/28/24 Range/Units 10:20 10:21 11:12 WBC (3.8-10.6) k/uL RBC (3.80-5.40) m/uL MCV (80.0-100.0) fL MCH (25.0-35.0) pg Neutrophils # (1.3-7.7) k/uL Macrocytosis ABG pH 7.46 H (7.35-7.45) ABG pO2 73 L (83-108) mmHg ABG HCO3 28 H (21-25) mmol/L ABG Total CO2 29 H (19-24) mmol/L ABG O2 Saturation (94-97) % Hemoglobin (11.4-16.0) gm/dL BUN (7-17) mg/dL Glucose (74-99) mg/dL POC Glucose (mg/dL) 169 H 146 H (70-110) mg/dL 07/28/24 Range/Units 12:23 WBC (3.8-10.6) k/uL RBC (3.80-5.40) m/uL MCV (80.0-100.0) fL MCH (25.0-35.0) pg Neutrophils # (1.3-7.7) k/uL Macrocytosis ABG pH (7.35-7.45) ABG pO2 (83-108) mmHg ABG HCO3 (21-25) mmol/L ABG Total CO2 (19-24) mmol/L ABG O2 Saturation (94-97) % Hemoglobin (11.4-16.0) gm/dL BUN (7-17) mg/dL Glucose (74-99) mg/dL POC Glucose (mg/dL) 112 H (70-110) mg/dL
[2024-07-28] MEDS: INSULIN ASPART (NovoLOG) 100 UNIT/ML VIAL SQ SCH (16:26)
--- NOTE | 2024-07-28 16:26 | P.PN ---
Subjective Progress Note Date: 07/27/24 This is a 54-year-old female patient with a past medical history significant for hypertension and COPD who requested to see in the ICU for further evaluation after change in mental status and what it seems to be "asystole" on the floor. The patient currently is intubated on mechanical ventilation and history was taken from the chart. The patient presented and was admitted to the hospital with COVID-related symptoms. Subsequently she was on the floor when she developed change in mental status and "asystole". No further details and no documentation of any asystole at this point. Subsequently the patient was intubated and placed on mechanical ventilation and she was brought to the intensive care unit. There was a concern about pulmonary edema and she was given Lasix. She underwent further evaluation including a chest x-ray which showed pulmonary vascular congestions and NT proBNP came in to be elevated troponin came in to be unremarkable and the rest of the blood work overall came in to be unremarkable including CBC and BMP. The EKG showed sinus mechanism with diffuse nonspecific ST and T wave abnormalities. No history of coronary artery disease or congestive heart failure or cardiac arrhythmia the patient never seen by a med care manager in the past. She does have hypertension and COPD. The physical examination is remarkable for regular rhythm with a soft systolic murmur at the right upper sternal border with diminished breathing sounds bilaterally and bilateral rhonchi and mild bilateral lower extremities edema noted. July 23, 2024 The patient was seen and evaluated this morning which she continues to be intubated on mechanical ventilation. She is still on small dose of norepinephrine. Otherwise she has been maintaining normal sinus mechanism. The echo showed mild cardiomyopathy with EF around 45% with global hypokinesia. The troponin came to be mildly elevated and she was started on heparin and I would continue that for additional 24-hour and total of 48 hours. Otherwise she is on aspirin. Am going to add statin to the current medical regimen which she is on lisinopril. The physical examination is remarkable for regular rhythm with a systolic murmur and diminished breathing sounds bilaterally and no edema was noted. The chest x-ray was reviewed. The blood work was reviewed. July 24, 2024 The patient was seen and evaluated this morning which she continues to be intubated on mechanical ventilation. She is on small dose of norepinephrine and at the same time she is on lisinopril. And going to stop the lisinopril. Her heart rate continues to be in the 50s and 60s. The chest x-ray did not show any acute abnormalities. Blood work showed stable hemoglobin and stable kidney function and electrolytes beside borderline low potassium. July 25, 2024 Patient continues to be on ventilator support. She continues to be on low-dose norepinephrine drip of 0.03 mcg/kg/min, labs shows WBC 18.2, hemoglobin 12.3, platelets 244, BUN 37, creatinine 0.7, TSH at 0.158, BP 113/58, heart rate 56 bpm, sinus rhythm July 26, 2024 Patient is seen at bedside. She continues to be ventilator support. She is off pressors. Vitals and labs were reviewed July 27, 2024 Patient is seen and examined at bedside this a.m. She continues to be ventilator support. She is hemodynamically stable. Does not appear volume overloaded On exam, regular pulses, no significant murmur appreciated, ET tube in place, on vent support, good air entry bilateral lung thomason No swelling in bilateral extremity On sedation, neuroexam was not performed Assessment Cardiopulmonary arrest with "asystole" Acute hypoxic respiratory failure Heart failure of unknown etiology at this point Low blood pressure requiring norepinephrine COPD Evidence of myocardial injury Mild cardiomyopathy Plan Continue the current medical regimen including aspirin and statin Try to wean the patient from norepinephrine Follow-up on the repeated echocardiogram Consider ruling out severe CAD once patient is more hemodynamically stable. Follow-up with the patient Objective - Vital Signs Vital signs: Vital Signs Temp 99.5 F 07/28/24 08:00 Pulse 69 07/28/24 15:00 Resp 18 07/28/24 16:00 BP 118/76 07/28/24 15:00 Pulse Ox 96 07/28/24 15:00 FiO2 50 07/28/24 10:00 Intake & Output 07/27/24 07/28/24 07/28/24 18:59 06:59 18:59 Intake Total 3089.627 2438.891 215.139 Output Total 6130 026 7298 Balance -302.334 667.891 -1044.861 Weight 78.3 kg 78.3 kg Intake: IV 218 286 26 Pressure bags 78 66 6 Sodium Chloride 0.9% 1, 140 220 20 000 ml @ 20 mls/hr IV . Q24H [facility] Rx#:[id number] Intake, IV Titration 234.666 318.891 141.139 Amount Insulin Regular 100 unit 34.666 79.699 20.301 In Sodium Chloride 0.9% 100 ml @ Titrate IV .Q0M [facility] Rx#:[id number] propofoL 1,000 mg In 200 239.192 120.838 Empty Bag 1 bag @ 15 MCG/ KG/MIN 6.491 mls/hr IV . [id number] [facility] Rx#:[id number] Tube Feeding 480 533 48 Other 90 120 Output: Urine 0843 005 7080 Other: Voiding Method Indwelling Catheter Indwelling Catheter Indwelling Catheter ABP, PAP, CO, CI - Last Documented Arterial Blood Pressure 138/71 - Labs CBC & Chem 7: 07/28/24 04:45 07/28/24 04:45 Labs: Abnormal Lab Results - Last 24 Hours (Table) 07/27/24 07/27/24 07/27/24 Range/Units 09:48 17:15 18:34 WBC (3.8-10.6) k/uL RBC (3.80-5.40) m/uL MCV (80.0-100.0) fL MCH (25.0-35.0) pg Neutrophils # (1.3-7.7) k/uL Macrocytosis ABG pH 7.47 H (7.35-7.45) ABG pO2 49 L* (83-108) mmHg ABG HCO3 29 H (21-25) mmol/L ABG Total CO2 30 H (19-24) mmol/L ABG O2 Saturation 85.9 L (94-97) % Hemoglobin (11.4-16.0) gm/dL BUN (7-17) mg/dL Glucose (74-99) mg/dL POC Glucose (mg/dL) 256 H 262 H (70-110) mg/dL 07/27/24 07/27/24 07/27/24 Range/Units 21:15 22:15 23:17 WBC (3.8-10.6) k/uL RBC (3.80-5.40) m/uL MCV (80.0-100.0) fL MCH (25.0-35.0) pg Neutrophils # (1.3-7.7) k/uL Macrocytosis ABG pH (7.35-7.45) ABG pO2 (83-108) mmHg ABG HCO3 (21-25) mmol/L ABG Total CO2 (19-24) mmol/L ABG O2 Saturation (94-97) % Hemoglobin (11.4-16.0) gm/dL BUN (7-17) mg/dL Glucose (74-99) mg/dL POC Glucose (mg/dL) 243 H 218 H 203 H (70-110) mg/dL 07/28/24 07/28/24 07/28/24 Range/Units 00:40 01:31 02:38 WBC (3.8-10.6) k/uL RBC (3.80-5.40) m/uL MCV (80.0-100.0) fL MCH (25.0-35.0) pg Neutrophils # (1.3-7.7) k/uL Macrocytosis ABG pH (7.35-7.45) ABG pO2 (83-108) mmHg ABG HCO3 (21-25) mmol/L ABG Total CO2 (19-24) mmol/L ABG O2 Saturation (94-97) % Hemoglobin (11.4-16.0) gm/dL BUN (7-17) mg/dL Glucose (74-99) mg/dL POC Glucose (mg/dL) 213 H 199 H 196 H (70-110) mg/dL 07/28/24 07/28/24 07/28/24 Range/Units 03:39 04:45 04:45 WBC 14.9 H (3.8-10.6) k/uL RBC 3.03 L (3.80-5.40) m/uL MCV 116.7 H (80.0-100.0) fL MCH 38.4 H (25.0-35.0) pg Neutrophils # 13.0 H (1.3-7.7) k/uL Macrocytosis Marked A ABG pH (7.35-7.45) ABG pO2 (83-108) mmHg ABG HCO3 (21-25) mmol/L ABG Total CO2 (19-24) mmol/L ABG O2 Saturation (94-97) % Hemoglobin (11.4-16.0) gm/dL BUN 31 H (7-17) mg/dL Glucose 139 H (74-99) mg/dL POC Glucose (mg/dL) 180 H (70-110) mg/dL 07/28/24 07/28/24 07/28/24 Range/Units 05:06 05:23 06:23 WBC (3.8-10.6) k/uL RBC (3.80-5.40) m/uL MCV (80.0-100.0) fL MCH (25.0-35.0) pg Neutrophils # (1.3-7.7) k/uL Macrocytosis ABG pH (7.35-7.45) ABG pO2 72 L (83-108) mmHg ABG HCO3 28 H (21-25) mmol/L ABG Total CO2 29 H (19-24) mmol/L ABG O2 Saturation (94-97) % Hemoglobin 11.3 L (11.4-16.0) gm/dL BUN (7-17) mg/dL Glucose (74-99) mg/dL POC Glucose (mg/dL) 138 H 191 H (70-110) mg/dL 07/28/24 07/28/24 07/28/24 Range/Units 07:05 08:17 09:07 WBC (3.8-10.6) k/uL RBC (3.80-5.40) m/uL MCV (80.0-100.0) fL MCH (25.0-35.0) pg Neutrophils # (1.3-7.7) k/uL Macrocytosis ABG pH (7.35-7.45) ABG pO2 (83-108) mmHg ABG HCO3 (21-25) mmol/L ABG Total CO2 (19-24) mmol/L ABG O2 Saturation (94-97) % Hemoglobin (11.4-16.0) gm/dL BUN (7-17) mg/dL Glucose (74-99) mg/dL POC Glucose (mg/dL) 202 H 181 H 181 H (70-110) mg/dL 07/28/24 07/28/24 07/28/24 Range/Units 10:20 10:21 11:12 WBC (3.8-10.6) k/uL RBC (3.80-5.40) m/uL MCV (80.0-100.0) fL MCH (25.0-35.0) pg Neutrophils # (1.3-7.7) k/uL Macrocytosis ABG pH 7.46 H (7.35-7.45) ABG pO2 73 L (83-108) mmHg ABG HCO3 28 H (21-25) mmol/L ABG Total CO2 29 H (19-24) mmol/L ABG O2 Saturation (94-97) % Hemoglobin (11.4-16.0) gm/dL BUN (7-17) mg/dL Glucose (74-99) mg/dL POC Glucose (mg/dL) 169 H 146 H (70-110) mg/dL 07/28/24 Range/Units 12:23 WBC (3.8-10.6) k/uL RBC (3.80-5.40) m/uL MCV (80.0-100.0) fL MCH (25.0-35.0) pg Neutrophils # (1.3-7.7) k/uL Macrocytosis ABG pH (7.35-7.45) ABG pO2 (83-108) mmHg ABG HCO3 (21-25) mmol/L ABG Total CO2 (19-24) mmol/L ABG O2 Saturation (94-97) % Hemoglobin (11.4-16.0) gm/dL BUN (7-17) mg/dL Glucose (74-99) mg/dL POC Glucose (mg/dL) 112 H (70-110) mg/dL
[2024-07-28 16:27] LABS: Glucose,Whole Blood 165 mg/dL (70-110)
[2024-07-28] MEDS: diazePAM 5 MG TAB PO PRN (16:28)
--- NOTE | 2024-07-28 16:28 | P.PN ---
Subjective Progress Note Date: 07/28/24 This is a 54-year-old female patient with a past medical history significant for hypertension and COPD who requested to see in the ICU for further evaluation after change in mental status and what it seems to be "asystole" on the floor. The patient currently is intubated on mechanical ventilation and history was taken from the chart. The patient presented and was admitted to the hospital with COVID-related symptoms. Subsequently she was on the floor when she developed change in mental status and "asystole". No further details and no documentation of any asystole at this point. Subsequently the patient was intubated and placed on mechanical ventilation and she was brought to the intensive care unit. There was a concern about pulmonary edema and she was given Lasix. She underwent further evaluation including a chest x-ray which showed pulmonary vascular congestions and NT proBNP came in to be elevated troponin came in to be unremarkable and the rest of the blood work overall came in to be unremarkable including CBC and BMP. The EKG showed sinus mechanism with diffuse nonspecific ST and T wave abnormalities. No history of coronary artery disease or congestive heart failure or cardiac arrhythmia the patient never seen by a central office frame wirer in the past. She does have hypertension and COPD. The physical examination is remarkable for regular rhythm with a soft systolic murmur at the right upper sternal border with diminished breathing sounds bilaterally and bilateral rhonchi and mild bilateral lower extremities edema noted. July 23, 2024 The patient was seen and evaluated this morning which she continues to be intubated on mechanical ventilation. She is still on small dose of norepinephrine. Otherwise she has been maintaining normal sinus mechanism. The echo showed mild cardiomyopathy with EF around 45% with global hypokinesia. The troponin came to be mildly elevated and she was started on heparin and I would continue that for additional 24-hour and total of 48 hours. Otherwise she is on aspirin. Am going to add statin to the current medical regimen which she is on lisinopril. The physical examination is remarkable for regular rhythm with a systolic murmur and diminished breathing sounds bilaterally and no edema was noted. The chest x-ray was reviewed. The blood work was reviewed. July 24, 2024 The patient was seen and evaluated this morning which she continues to be intubated on mechanical ventilation. She is on small dose of norepinephrine and at the same time she is on lisinopril. And going to stop the lisinopril. Her heart rate continues to be in the 50s and 60s. The chest x-ray did not show any acute abnormalities. Blood work showed stable hemoglobin and stable kidney function and electrolytes beside borderline low potassium. July 25, 2024 Patient continues to be on ventilator support. She continues to be on low-dose norepinephrine drip of 0.03 mcg/kg/min, labs shows WBC 18.2, hemoglobin 12.3, platelets 244, BUN 37, creatinine 0.7, TSH at 0.158, BP 113/58, heart rate 56 bpm, sinus rhythm July 26, 2024 Patient is seen at bedside. She continues to be ventilator support. She is off pressors. Vitals and labs were reviewed July 27, 2024 Patient is seen and examined at bedside this a.m. She continues to be ventilator support. She is hemodynamically stable. Does not appear volume overloaded July 28, 2024 Patient is seen and examined at bedside this a.m. Today she was extubated and is currently on room air saturating well. She is hemodynamically stable. She appears slightly confused and is very eager to go home. She is not reporting any substernal chest pressure. Her chest x-ray shows mild pulm congestion. On exam, regular pulses, no significant murmur appreciated, ET tube in place, on vent support, good air entry bilateral lung thomason No swelling in bilateral extremity On sedation, neuroexam was not performed Assessment Cardiopulmonary arrest with "asystole" Acute hypoxic respiratory failure Heart failure of unknown etiology at this point Low blood pressure requiring norepinephrine COPD Evidence of myocardial injury Mild cardiomyopathy EF 45 to 50%. Repeat limited echocardiogram showed an EF of 55 to 60%. Plan Would recommend continuing medical therapy with aspirin and statin. Once patient is more alert and awake, would consider ischemic evaluation via invasive approach on an outpatient basis. Would recommend outpatient follow-up with Dr. Shen in next 1 week. Objective - Vital Signs Vital signs: Vital Signs Temp 99.5 F 07/28/24 08:00 Pulse 69 07/28/24 15:00 Resp 18 07/28/24 16:00 BP 118/76 07/28/24 15:00 Pulse Ox 96 07/28/24 15:00 FiO2 50 07/28/24 10:00 Intake & Output 07/27/24 07/28/24 07/28/24 18:59 06:59 18:59 Intake Total 0537.049 9248.891 215.139 Output Total 4293 610 8913 Balance -302.334 667.891 -1044.861 Weight 78.3 kg 78.3 kg Intake: IV 218 286 26 Pressure bags 78 66 6 Sodium Chloride 0.9% 1, 140 220 20 000 ml @ 20 mls/hr IV . Q24H JESSICA Rx#:[id number] Intake, IV Titration 234.666 318.891 141.139 Amount Insulin Regular 100 unit 34.666 79.699 20.301 In Sodium Chloride 0.9% 100 ml @ Titrate IV .Q0M JESSICA Rx#:[id number] propofoL 1,000 mg In 200 239.192 120.838 Empty Bag 1 bag @ 15 MCG/ KG/MIN 6.491 mls/hr IV . [id number] JESSICA Rx#:[id number] Tube Feeding 480 533 48 Other 90 120 Output: Urine 4360 574 0097 Other: Voiding Method Indwelling Catheter Indwelling Catheter Indwelling Catheter ABP, PAP, CO, CI - Last Documented Arterial Blood Pressure 138/71 - Labs CBC & Chem 7: 07/28/24 04:45 07/28/24 04:45 Labs: Abnormal Lab Results - Last 24 Hours (Table) 07/27/24 07/27/24 07/27/24 Range/Units 09:48 17:15 18:34 WBC (3.8-10.6) k/uL RBC (3.80-5.40) m/uL MCV (80.0-100.0) fL MCH (25.0-35.0) pg Neutrophils # (1.3-7.7) k/uL Macrocytosis ABG pH 7.47 H (7.35-7.45) ABG pO2 49 L* (83-108) mmHg ABG HCO3 29 H (21-25) mmol/L ABG Total CO2 30 H (19-24) mmol/L ABG O2 Saturation 85.9 L (94-97) % Hemoglobin (11.4-16.0) gm/dL BUN (7-17) mg/dL Glucose (74-99) mg/dL POC Glucose (mg/dL) 256 H 262 H (70-110) mg/dL 07/27/24 07/27/24 07/27/24 Range/Units 21:15 22:15 23:17 WBC (3.8-10.6) k/uL RBC (3.80-5.40) m/uL MCV (80.0-100.0) fL MCH (25.0-35.0) pg Neutrophils # (1.3-7.7) k/uL Macrocytosis ABG pH (7.35-7.45) ABG pO2 (83-108) mmHg ABG HCO3 (21-25) mmol/L ABG Total CO2 (19-24) mmol/L ABG O2 Saturation (94-97) % Hemoglobin (11.4-16.0) gm/dL BUN (7-17) mg/dL Glucose (74-99) mg/dL POC Glucose (mg/dL) 243 H 218 H 203 H (70-110) mg/dL 07/28/24 07/28/24 07/28/24 Range/Units 00:40 01:31 02:38 WBC (3.8-10.6) k/uL RBC (3.80-5.40) m/uL MCV (80.0-100.0) fL MCH (25.0-35.0) pg Neutrophils # (1.3-7.7) k/uL Macrocytosis ABG pH (7.35-7.45) ABG pO2 (83-108) mmHg ABG HCO3 (21-25) mmol/L ABG Total CO2 (19-24) mmol/L ABG O2 Saturation (94-97) % Hemoglobin (11.4-16.0) gm/dL BUN (7-17) mg/dL Glucose (74-99) mg/dL POC Glucose (mg/dL) 213 H 199 H 196 H (70-110) mg/dL 07/28/24 07/28/24 07/28/24 Range/Units 03:39 04:45 04:45 WBC 14.9 H (3.8-10.6) k/uL RBC 3.03 L (3.80-5.40) m/uL MCV 116.7 H (80.0-100.0) fL MCH 38.4 H (25.0-35.0) pg Neutrophils # 13.0 H (1.3-7.7) k/uL Macrocytosis Marked A ABG pH (7.35-7.45) ABG pO2 (83-108) mmHg ABG HCO3 (21-25) mmol/L ABG Total CO2 (19-24) mmol/L ABG O2 Saturation (94-97) % Hemoglobin (11.4-16.0) gm/dL BUN 31 H (7-17) mg/dL Glucose 139 H (74-99) mg/dL POC Glucose (mg/dL) 180 H (70-110) mg/dL 07/28/24 07/28/24 07/28/24 Range/Units 05:06 05:23 06:23 WBC (3.8-10.6) k/uL RBC (3.80-5.40) m/uL MCV (80.0-100.0) fL MCH (25.0-35.0) pg Neutrophils # (1.3-7.7) k/uL Macrocytosis ABG pH (7.35-7.45) ABG pO2 72 L (83-108) mmHg ABG HCO3 28 H (21-25) mmol/L ABG Total CO2 29 H (19-24) mmol/L ABG O2 Saturation (94-97) % Hemoglobin 11.3 L (11.4-16.0) gm/dL BUN (7-17) mg/dL Glucose (74-99) mg/dL POC Glucose (mg/dL) 138 H 191 H (70-110) mg/dL 07/28/24 07/28/24 07/28/24 Range/Units 07:05 08:17 09:07 WBC (3.8-10.6) k/uL RBC (3.80-5.40) m/uL MCV (80.0-100.0) fL MCH (25.0-35.0) pg Neutrophils # (1.3-7.7) k/uL Macrocytosis ABG pH (7.35-7.45) ABG pO2 (83-108) mmHg ABG HCO3 (21-25) mmol/L ABG Total CO2 (19-24) mmol/L ABG O2 Saturation (94-97) % Hemoglobin (11.4-16.0) gm/dL BUN (7-17) mg/dL Glucose (74-99) mg/dL POC Glucose (mg/dL) 202 H 181 H 181 H (70-110) mg/dL 07/28/24 07/28/24 07/28/24 Range/Units 10:20 10:21 11:12 WBC (3.8-10.6) k/uL RBC (3.80-5.40) m/uL MCV (80.0-100.0) fL MCH (25.0-35.0) pg Neutrophils # (1.3-7.7) k/uL Macrocytosis ABG pH 7.46 H (7.35-7.45) ABG pO2 73 L (83-108) mmHg ABG HCO3 28 H (21-25) mmol/L ABG Total CO2 29 H (19-24) mmol/L ABG O2 Saturation (94-97) % Hemoglobin (11.4-16.0) gm/dL BUN (7-17) mg/dL Glucose (74-99) mg/dL POC Glucose (mg/dL) 169 H 146 H (70-110) mg/dL 07/28/24 Range/Units 12:23 WBC (3.8-10.6) k/uL RBC (3.80-5.40) m/uL MCV (80.0-100.0) fL MCH (25.0-35.0) pg Neutrophils # (1.3-7.7) k/uL Macrocytosis ABG pH (7.35-7.45) ABG pO2 (83-108) mmHg ABG HCO3 (21-25) mmol/L ABG Total CO2 (19-24) mmol/L ABG O2 Saturation (94-97) % Hemoglobin (11.4-16.0) gm/dL BUN (7-17) mg/dL Glucose (74-99) mg/dL POC Glucose (mg/dL) 112 H (70-110) mg/dL
[2024-07-29 06:02] LABS: HCT 35.8 % (34.0-46.0); HGB 11.9 gm/dL (11.4-16.0); MCH 38.6 pg (25.0-35.0); MCHC 33.3 g/dL (31.0-37.0); MCV 115.9 fL (80.0-100.0); Macrocytosis Marked; Mean Platelet Volume 10.2; Platelet Count 308 k/uL (150-450); RBC 3.09 m/uL (3.80-5.40); RDW 13.3 % (11.5-15.5); WBC 16.3 k/uL (3.8-10.6)
[2024-07-29 06:23] LABS: African American GFR (CKD) >90 (>60 ml/min/1.73 sqM); Anion Gap 5 mmol/L; Blood Urea Nitrogen 28 mg/dL (7-17); Calcium 9.9 mg/dL (8.4-10.2); Carbon Dioxide 27 mmol/L (22-30); Chloride 105 mmol/L (98-107); Glucose 223 mg/dL (74-99); Non-African American GFR(CKD) >90 (>60 ml/min/1.73 sqM); Potassium 4.7 mmol/L (3.5-5.1); Sodium 137 mmol/L (137-145)
--- NOTE | 2024-07-29 10:54 | P.PN ---
Subjective Progress Note Date: 07/29/24 Principal diagnosis: Acute COVID-19 infection and cardiopulmonary arrest This is a 54-year-old female patient with a history of chronic obstructive pulmonary disease, chronic and ongoing tobacco dependence, fibromyalgia, hypertension, bipolar disorder, anxiety who presented here to the emergency room on 07/17/2024 with multiple complaints including burning with urination, cough congestion weakness. Tmax of 102.4. She was found to have a COVID-19 infection. She was found to be hypoxemic. She is on 4 L nasal cannula now. She is febrile. Count 9.6. Hemoglobin 12.2. Platelets 180. D-dimer 1.00. Sodium 142. Potassium 4.0. Bicarb 20. BUN 11. Creatinine 0.7. Glucose 158. AST 144. ALT 102. proBNP 4830. Troponin negative x 1. Procalcitonin negative at 0.20. She is initiated on Decadron and vitamin supplements. She is seen today July 21, 2024 in follow-up after developing increasing shortness of breath. She is maintaining O2 saturations in the 90s on 4 L/min per nasal cannula. Patient was evaluated today on 07/22/2024, I saw this patient yesterday for her COVID-19 infection, patient was more symptomatic than expected based on her physical examination, hence I recommended a CT angiogram of the chest which came back negative for pulmonary embolism, it did show evidence of scattered airspace opacities consistent with pneumonia, multifocal groundglass opacities were also noted. There is also evidence of small bilateral pleural effusions. During my evaluation, patient was on 4 L nasal cannula, and did not seem to be in distress. at 20:22 on 07/21 patient had a sudden episode of unresponsiveness. According to the nurse patient was unresponsive and pulseless. CODE BLUE was immediately activated and CPR was initiated. Apparently she was in asystole patient received 1 dose of epinephrine, went into ventricular fibrillation and she received 1 shock at 120 J. Another V-fib episode was noted shortly after and 200 J were delivered. Patient had subsequent return of spontaneous circulation at 2027. In the meantime the patient was intubated by [facility] and she was sent to the ICU, and I was notified about the patient that she is in the U. Discussed the vent settings the ABG reviewed her chest x-ray which clearly showed evidence of pulmonary edema or possibly aspiration pneumonia I recommended Lasix, and I also recommended antibiotic which was started in the form of Zosyn. Patient is now in the ICU. She is on assist-control rate of 20 tidal volume 450 FiO2 100% and PEEP of 8 ABG showed a pO2 of 108 pCO2 34 pH of 7.59. Echocardiogram this morning showed global systolic dysfunction, ejection fraction estimated to be 45%. Patient was also noted to have mild aortic regurgitation. Troponin today is 0.592, patient was seen by cardiology, EKG showed diffuse nonspecific ST and T wave changes and the recommendation is to continue Lasix specially with her LV dysfunction. BNP level is pending, Lasix dose was increased after reviewing her chest x-ray from 20 mg to 40 mg IV push every 8 hours. Patient is also on heparin. And she is on antibiotics in the form of Zosyn. Patient is also on the COVID-19 cocktail, the findings on her chest x-ray are clinically not findings of COVID-19 pneumonia labs today showed WBC of 7.7 hemoglobin 12.8 procalcitonin level on admission was 0.2, basically unremarkable. Her basic metabolic profile is normal renal profile is normal potassium is a bit low at 3.3 being addressed accordingly Patient was seen today on 07/23/2024, remains in the ICU intubated and mechanically ventilated. Patient is on assist-control rate of 16 tidal volume 450 FiO2 60% PEEP of 12 ABG remains marginal with a pO2 of 55 pCO2 40 pH of 7.57 chest x-ray is showing significant improvement in her infiltrates/pulmonary edema over the last 24 hours, patient has been left on Lasix all along. Patient is requiring a small dose of norepinephrine for low blood pressure norepinephrine at 0.04 mcg/kg/min today I recommended holding the Lasix and starting IV fluid at 125 cc per hour. Patient remains on propofol at 25 mcg/kg/min and Versed at 5 mg/h. Today I am recommending that we taper and discontinue propofol, and maintain the patient on Versed even if we have to increase the dose. Steroids while she was on Decadron, and I am recommending Solu-Medrol I am also recommended that we continue Zosyn. Lasix is now on hold. Heparin still on board as ordered by cardiology. Echocardiogram did show evidence of mild LV dysfunction chest x-ray improved with diuretics. WBC 12.6 hemoglobin 13.4. PTT was 34 today. Heparin was placed on hold temporarily until a line was placed/triple-lumen catheter and will be restarted renal profile is normal potassium is a bit low at 3.3 being addressed accordingly Patient was reevaluated today on 07/24/2024, remains in the ICU, intubated and mechanically ventilated, ABG is marginal at best. Remains on assist-control rate of 16 tidal volume 450 FiO2 60% PEEP of 12 ABG showed a pO2 of 66 pCO2 40 pH of 7.52. Patient remains on heparin also on insulin at 5 units/h, Versed at 5 mg/h norepinephrine 0.03 mcg/kg/min, propofol 20 mcg/kg/min, remains on vital AF at 20 cc/h, patient is also receiving Zosyn empirically. She did receive Lasix this morning 40 mg IV push as her chest x-ray is showing slight worsening of her interstitial edema/infiltrates WBC is 15.1 hemoglobin is 13. Basic metabolic profile is normal bicarb is 34 BUN is 27 creatinine 0.76 blood sugar is 200 Progress note dated July 25, 2024. Patient was evaluated today, remains in the ICU is intubated and mechanically ventilated. Remains on assist-control rate of 16, tidal volume 450, FiO2 60%, PEEP 12. ABG shows pO2 84, pCO2 42, pH 7.47. Plan to decrease tidal volume.She remains on propofol at 30 mcg/kg/min, norepinephrine at 0.03 mcg/kg/min, Vital AF at 40cc/h with goal of 40, 0.9 NS at 20 mL per hr and Zosyn. Pro-Jesse has been ordered today, if negative Zosyn will be discontinued. Chest x-ray done today shows low lung volumes with generalized hazy appearance which could represent atelectasis versus pulmonary edema. As per cardiology non-epinephrine was weaned but the patient had to be put back on it. Cortisol and TSH have been ordered today. TSH is 0.158. Labs show WBC 18.2, hemoglobin 12.3, platelet 244, sodium 141, potassium 4, chloride 103, bicarb 30, BUN 37, creatinine 0.75, glucose 152, A1c 6.1. Progress note dated July 26, 2024. Patient was seen today in the ICU, remains intubated and mechanically ventilated. Patient is on assist-control rate of 16, tidal volume 350, FiO2 50%, PEEP changed today from 12 to 8. ABG shows pO2 88, pCO2 44, pH 7.45. She is on propofol at 35 mics per keg per minute, vital AF at goal of 40 cc/h, 0.9 normal saline at 20 mL/h and insulin 5 units/h. Norepinephrine was weaned Pro- Jesse is 0.41 hence Zosyn has been discontinued. Chest x-ray shows no acute cardiopulmonary disease process. Repeat echo shows improved LV size, ejection fraction 65% and thickened pericardium. Plan is to wake her up and perform sp ontaneous breathing trial with pressure support 06/13. Labs show TSH 0.158, free T4.76, cortisol 11.1, WBC 13.9, hemoglobin 11.6, platelet count 217, sodium 140, potassium 4.3, chloride 105, bicarb 30, BUN 40, creatinine 0.66, glucose 169, AST 53, ALT 126, ALP 133, total protein 5.2 and albumin 3.1. Progress note dated July 27, 2024. Patient evaluated in the ICU, remains intubated and mechanically ventilated. The patient is on assist-control rate of 16, tidal volume 350, FiO2 50% and PEEP of 8. ABG values PaO2 78, pCO2 39, pH 7.49 showing metabolic alkalosis. She is on propofol at 50 mcg/kg/min, vital AF at goal of 48, 0.9 normal saline at 10 mL/h and insulin at 4 units/h. Chest x-ray shows mild left lower lobe infiltrate. Patient failed DIS SBT performed yesterday. Today the patient did not do well when she was put on pressure support of 8, CPAP 5. Weaning parameters showed RR 19, VT 425, and nif 22, RSBI of 47, thin white secretions and cuff leak and blood gases pO2 49.4, pCO2 34, pH 7.47. Tube feeds were held during weaning parameters. At this time the patient cannot be extubated and has been put on her prior vent settings. Repeat blood cultures collected on 07/23 have shown no growth in 72 hours. Labs show WBC 16.1, hemoglobin 12.5, platelets 280, sodium 138, potassium 4.2, chloride 104, bicarb 30, BUN 30, creatinine 0.56, glucose 231, AST 43, ALT 1 1 ALP 148, total protein 5.5, globulin 3.3, total bili 0.6, calcium 9.6. Progress note dated July 28, 2024. Patient seen in the ICU, remains intubated and mechanically ventilated. The patient is on assist-control rate of 16, tidal volume 350, FiO2 50% and PEEP of 8. ABG values show PaO2 72, pCO2 41, pH 7.45 which shows mild metabolic alkalosis due to prerenal azotemia. Last night her blood pressure dropped a little so her propofol was decreased to 45 mcg/kg/min. She continues to be on vital AF at goal of 48, 0.9 normal saline at 20 mL/h. Chest x-ray looks much better than yesterday. Patient was put on pressure support of 8 and 0.5 yesterday along with a full set of weaning parameters but at the time was determined that she is not fit to be extubated. A trial of PSV of 8 and CPAP of 5 along with set of weaning parameters at 30 minutes will be repeated today. ET tube to be pushed down by 1 to 1.5 cm. She is on Ventolin and Solu-Medrol. Labs showed WBC 14.9, hemoglobin 8.6, platelet 269, sodium 138, potassium 4.3, chloride 105, bicarb 29, BUN 31, creatinine 0.55, glucose 139. Pravastatin July 29, 2024. Patient was evaluated in the ICU today. Spontaneous breathing trial with 8 cm water pressure support and 5 cm water CPAP done yesterday and she was extubated successfully. She denies any shortness of breath, does complain of some coughing. She is on 4 L of nasal cannula and is saturating at 94%. She was on 0.9 normal saline at 20 mL/h. Today she will be transferred to [facility] with telemetry. Her diet was advanced to heart healthy. Aguilar catheter was discon tinued. Solu-Medrol was changed to prednisone 30 mg daily. Cardiology recommended outpatient ischemic evaluation. Labs showed WBC 16.3, hemoglobin 11.9, platelets 308, sodium 137, potassium 4.7, chloride 105, bicarb 27, BUN 28, creatinine 0.51 and glucose 223. No new imaging. Prognosis is guarded. Will continue to follow. Objective - Vital Signs Vital signs: Vital Signs Temp 98.0 F 07/29/24 08:00 Pulse 81 07/29/24 09:00 Resp 22 07/29/24 09:00 BP 105/68 07/29/24 09:00 Pulse Ox 94 L 07/29/24 09:00 FiO2 4 07/28/24 20:00 Intake & Output 07/28/24 07/29/24 07/29/24 18:59 06:59 18:59 Intake Total 215.139 793 92 Output Total 1660 1550 320 Balance -1444.861 -757 -228 Weight 78.3 kg 76 kg Intake: IV 26 253 92 Pressure bags 6 33 12 Sodium Chloride 0.9% 1, 20 220 80 000 ml @ 20 mls/hr IV . Q24H JESSICA Rx#:[id number] Intake, IV Titration 141.139 Amount Insulin Regular 100 unit 20.301 In Sodium Chloride 0.9% 100 ml @ Titrate IV .Q0M JESSICA Rx#:[id number] propofoL 1,000 mg In 120.838 Empty Bag 1 bag @ 15 MCG/ KG/MIN 6.491 mls/hr IV . [id number] JESSICA Rx#:[id number] Tube Feeding 48 Blood Product 540 Output: Urine 1660 1550 320 Other: Voiding Method Indwelling Catheter Indwelling Catheter Indwelling Catheter ABP, PAP, CO, CI - Last Documented Arterial Blood Pressure 138/71 - Exam GENERAL EXAM: Awake and alert, not in acute distress HEAD: Normocephalic. EYES: Normal reaction of pupils, equal size. NOSE: Clear with pink turbinates. THROAT: No erythema or exudates. NECK: No masses, no JVD. CHEST: No chest wall deformity. LUNGS: Diminished bilaterally CVS: S1 and S2 normal ABDOMEN: No hepatosplenomegaly, normal bowel sounds, no guarding or rigidity. SKIN: No rashes CENTRAL NERVOUS SYSTEM: Alert and oriented EXTREMITIES: No clubbing edema or cyanosis - Labs CBC & Chem 7: 07/29/24 05:37 07/29/24 05:33 Labs: Abnormal Lab Results - Last 24 Hours (Table) 07/28/24 07/28/24 07/28/24 Range/Units 11:12 12:23 16:24 WBC (3.8-10.6) k/uL RBC (3.80-5.40) m/uL MCV (80.0-100.0) fL MCH (25.0-35.0) pg Macrocytosis BUN (7-17) mg/dL Creatinine (0.52-1.04) mg/dL Glucose (74-99) mg/dL POC Glucose (mg/dL) 146 H 112 H 165 H (70-110) mg/dL Hemoglobin A1c (<=6.0) % 07/29/24 07/29/24 07/29/24 Range/Units 05:33 05:37 05:37 WBC 16.3 H (3.8-10.6) k/uL RBC 3.09 L (3.80-5.40) m/uL MCV 115.9 H (80.0-100.0) fL MCH 38.6 H (25.0-35.0) pg Macrocytosis Marked A BUN 28 H (7-17) mg/dL Creatinine 0.51 L (0.52-1.04) mg/dL Glucose 223 H (74-99) mg/dL POC Glucose (mg/dL) (70-110) mg/dL Hemoglobin A1c 6.5 H (<=6.0) % Microbiology - Last 24 Hours (Table) 07/23/24 08:45 Blood Culture - Final Blood Assessment and Plan Assessment: Acute hypoxic respiratory failure secondary to cardiac arrest Covid 19 pneumonia Underlying COPD Hyperglycemia Acute systolic congestive heart failure Chronic ongoing tobacco dependence History of bipolar disorder History of fibromyalgia Generalized anxiety disorder Plan: Patient to be transferred to [facility] with telemetry. Extubated yesterday. Insert Peripheral line Discontinue Aguilar Saline flush BID Discontinue Solumedrol Startd on prednisone 30mg daily Continue albuterol inhaler 2 puffs 4 times daily as needed Aspirin 81 mg, atorvastatin 40 mg daily Quetiapine 300 mg at bedtime Started on Diazepam GI prophylaxis: Pantoprazole 40 mg IVP daily DVT prophylaxis: Enoxaparin 40 mg SQ daily Diet : Advance to heart Healthy diet Will continue to follow, prognosis is guarded Critical care time is 35 minutes Time with Patient: Greater than 30
[2024-07-29 11:26] LABS: Glucose,Whole Blood 242 mg/dL (70-110)
[2024-07-29 11:28] LABS: Glucose,Whole Blood 245 mg/dL (70-110)
[2024-07-29 16:19] LABS: Glucose,Whole Blood 176 mg/dL (70-110)
[2024-07-29] MEDS: HYDROcodone/APAP 10-325MG 1 EACH TAB PO PRN (18:59)
[2024-07-29 20:21] LABS: Glucose,Whole Blood 200 mg/dL (70-110)
[2024-07-29] MEDS: traZODone HCL 100 MG TAB PO SCH (21:32)
[2024-07-30 06:49] LABS: Glucose,Whole Blood 110 mg/dL (70-110)
[2024-07-30] MEDS: predniSONE 10 MG TAB PO SCH (08:16)
--- NOTE | 2024-07-30 09:41 | P.PN ---
Subjective Progress Note Date: 07/30/24 Principal diagnosis: Acute COVID-19 infection and cardiopulmonary arrest This is a 54-year-old female patient with a history of chronic obstructive pulmonary disease, chronic and ongoing tobacco dependence, fibromyalgia, hypertension, bipolar disorder, anxiety who presented here to the emergency room on 07/17/2024 with multiple complaints including burning with urination, cough congestion weakness. Tmax of 102.4. She was found to have a COVID-19 infection. She was found to be hypoxemic. She is on 4 L nasal cannula now. She is febrile. Count 9.6. Hemoglobin 12.2. Platelets 180. D-dimer 1.00. Sodium 142. Potassium 4.0. Bicarb 20. BUN 11. Creatinine 0.7. Glucose 158. AST 144. ALT 102. proBNP 4830. Troponin negative x 1. Procalcitonin negative at 0.20. She is initiated on Decadron and vitamin supplements. She is seen today July 21, 2024 in follow-up after developing increasing shortness of breath. She is maintaining O2 saturations in the 90s on 4 L/min per nasal cannula. Patient was evaluated today on 07/22/2024, I saw this patient yesterday for her COVID-19 infection, patient was more symptomatic than expected based on her physical examination, hence I recommended a CT angiogram of the chest which came back negative for pulmonary embolism, it did show evidence of scattered airspace opacities consistent with pneumonia, multifocal groundglass opacities were also noted. There is also evidence of small bilateral pleural effusions. During my evaluation, patient was on 4 L nasal cannula, and did not seem to be in distress. at 20:22 on 07/21 patient had a sudden episode of unresponsiveness. According to the nurse patient was unresponsive and pulseless. CODE BLUE was immediately activated and CPR was initiated. Apparently she was in asystole patient received 1 dose of epinephrine, went into ventricular fibrillation and she received 1 shock at 120 J. Another V-fib episode was noted shortly after and 200 J were delivered. Patient had subsequent return of spontaneous circulation at 2027. In the meantime the patient was intubated by [employer] and she was sent to the ICU, and I was notified about the patient that she is in the U. Discussed the vent settings the ABG reviewed her chest x-ray which clearly showed evidence of pulmonary edema or possibly aspiration pneumonia I recommended Lasix, and I also recommended antibiotic which was started in the form of Zosyn. Patient is now in the ICU. She is on assist-control rate of 20 tidal volume 450 FiO2 100% and PEEP of 8 ABG showed a pO2 of 108 pCO2 34 pH of 7.59. Echocardiogram this morning showed global systolic dysfunction, ejection fraction estimated to be 45%. Patient was also noted to have mild aortic regurgitation. Troponin today is 0.592, patient was seen by cardiology, EKG showed diffuse nonspecific ST and T wave changes and the recommendation is to continue Lasix specially with her LV dysfunction. BNP level is pending, Lasix dose was increased after reviewing her chest x-ray from 20 mg to 40 mg IV push every 8 hours. Patient is also on heparin. And she is on antibiotics in the form of Zosyn. Patient is also on the COVID-19 cocktail, the findings on her chest x-ray are clinically not findings of COVID-19 pneumonia labs today showed WBC of 7.7 hemoglobin 12.8 procalcitonin level on admission was 0.2, basically unremarkable. Her basic metabolic profile is normal renal profile is normal potassium is a bit low at 3.3 being addressed accordingly Patient was seen today on 07/23/2024, remains in the ICU intubated and mechanically ventilated. Patient is on assist-control rate of 16 tidal volume 450 FiO2 60% PEEP of 12 ABG remains marginal with a pO2 of 55 pCO2 40 pH of 7.57 chest x-ray is showing significant improvement in her infiltrates/pulmonary edema over the last 24 hours, patient has been left on Lasix all along. Patient is requiring a small dose of norepinephrine for low blood pressure norepinephrine at 0.04 mcg/kg/min today I recommended holding the Lasix and starting IV fluid at 125 cc per hour. Patient remains on propofol at 25 mcg/kg/min and Versed at 5 mg/h. Today I am recommending that we taper and discontinue propofol, and maintain the patient on Versed even if we have to increase the dose. Steroids while she was on Decadron, and I am recommending Solu-Medrol I am also recommended that we continue Zosyn. Lasix is now on hold. Heparin still on board as ordered by cardiology. Echocardiogram did show evidence of mild LV dysfunction chest x-ray improved with diuretics. WBC 12.6 hemoglobin 13.4. PTT was 34 today. Heparin was placed on hold temporarily until a line was placed/triple-lumen catheter and will be restarted renal profile is normal potassium is a bit low at 3.3 being addressed accordingly Patient was reevaluated today on 07/24/2024, remains in the ICU, intubated and mechanically ventilated, ABG is marginal at best. Remains on assist-control rate of 16 tidal volume 450 FiO2 60% PEEP of 12 ABG showed a pO2 of 66 pCO2 40 pH of 7.52. Patient remains on heparin also on insulin at 5 units/h, Versed at 5 mg/h norepinephrine 0.03 mcg/kg/min, propofol 20 mcg/kg/min, remains on vital AF at 20 cc/h, patient is also receiving Zosyn empirically. She did receive Lasix this morning 40 mg IV push as her chest x-ray is showing slight worsening of her interstitial edema/infiltrates WBC is 15.1 hemoglobin is 13. Basic metabolic profile is normal bicarb is 34 BUN is 27 creatinine 0.76 blood sugar is 200 Progress note dated July 25, 2024. Patient was evaluated today, remains in the ICU is intubated and mechanically ventilated. Remains on assist-control rate of 16, tidal volume 450, FiO2 60%, PEEP 12. ABG shows pO2 84, pCO2 42, pH 7.47. Plan to decrease tidal volume.She remains on propofol at 30 mcg/kg/min, norepinephrine at 0.03 mcg/kg/min, Vital AF at 40cc/h with goal of 40, 0.9 NS at 20 mL per hr and Zosyn. Pro-Jesse has been ordered today, if negative Zosyn will be discontinued. Chest x-ray done today shows low lung volumes with generalized hazy appearance which could represent atelectasis versus pulmonary edema. As per cardiology non-epinephrine was weaned but the patient had to be put back on it. Cortisol and TSH have been ordered today. TSH is 0.158. Labs show WBC 18.2, hemoglobin 12.3, platelet 244, sodium 141, potassium 4, chloride 103, bicarb 30, BUN 37, creatinine 0.75, glucose 152, A1c 6.1. Progress note dated July 26, 2024. Patient was seen today in the ICU, remains intubated and mechanically ventilated. Patient is on assist-control rate of 16, tidal volume 350, FiO2 50%, PEEP changed today from 12 to 8. ABG shows pO2 88, pCO2 44, pH 7.45. She is on propofol at 35 mics per keg per minute, vital AF at goal of 40 cc/h, 0.9 normal saline at 20 mL/h and insulin 5 units/h. Norepinephrine was weaned Pro- Jesse is 0.41 hence Zosyn has been discontinued. Chest x-ray shows no acute cardiopulmonary disease process. Repeat echo shows improved LV size, ejection fraction 65% and thickened pericardium. Plan is to wake her up and perform sp ontaneous breathing trial with pressure support 06/13. Labs show TSH 0.158, free T4.76, cortisol 11.1, WBC 13.9, hemoglobin 11.6, platelet count 217, sodium 140, potassium 4.3, chloride 105, bicarb 30, BUN 40, creatinine 0.66, glucose 169, AST 53, ALT 126, ALP 133, total protein 5.2 and albumin 3.1. Progress note dated July 27, 2024. Patient evaluated in the ICU, remains intubated and mechanically ventilated. The patient is on assist-control rate of 16, tidal volume 350, FiO2 50% and PEEP of 8. ABG values PaO2 78, pCO2 39, pH 7.49 showing metabolic alkalosis. She is on propofol at 50 mcg/kg/min, vital AF at goal of 48, 0.9 normal saline at 10 mL/h and insulin at 4 units/h. Chest x-ray shows mild left lower lobe infiltrate. Patient failed DIS SBT performed yesterday. Today the patient did not do well when she was put on pressure support of 8, CPAP 5. Weaning parameters showed RR 19, VT 425, and nif 22, RSBI of 47, thin white secretions and cuff leak and blood gases pO2 49.4, pCO2 34, pH 7.47. Tube feeds were held during weaning parameters. At this time the patient cannot be extubated and has been put on her prior vent settings. Repeat blood cultures collected on 07/23 have shown no growth in 72 hours. Labs show WBC 16.1, hemoglobin 12.5, platelets 280, sodium 138, potassium 4.2, chloride 104, bicarb 30, BUN 30, creatinine 0.56, glucose 231, AST 43, ALT 1 1 ALP 148, total protein 5.5, globulin 3.3, total bili 0.6, calcium 9.6. Progress note dated July 28, 2024. Patient seen in the ICU, remains intubated and mechanically ventilated. The patient is on assist-control rate of 16, tidal volume 350, FiO2 50% and PEEP of 8. ABG values show PaO2 72, pCO2 41, pH 7.45 which shows mild metabolic alkalosis due to prerenal azotemia. Last night her blood pressure dropped a little so her propofol was decreased to 45 mcg/kg/min. She continues to be on vital AF at goal of 48, 0.9 normal saline at 20 mL/h. Chest x-ray looks much better than yesterday. Patient was put on pressure support of 8 and 0.5 yesterday along with a full set of weaning parameters but at the time was determined that she is not fit to be extubated. A trial of PSV of 8 and CPAP of 5 along with set of weaning parameters at 30 minutes will be repeated today. ET tube to be pushed down by 1 to 1.5 cm. She is on Ventolin and Solu-Medrol. Labs showed WBC 14.9, hemoglobin 8.6, platelet 269, sodium 138, potassium 4.3, chloride 105, bicarb 29, BUN 31, creatinine 0.55, glucose 139. Progress note dated July 29, 2024. Patient was evaluated in the ICU today. Spontaneous breathing trial with 8 cm water pressure support and 5 cm water CPAP done yesterday and she was extubated successfully on 07/28/24. She denies any shortness of breath, does complain of some coughing. She is on 4 L of nasal cannula and is saturating at 94%. She was on 0.9 normal saline at 20 mL/h. Today she will be transferred to [facility] with telemetry. Her diet was advanced to heart healthy. Aguilar catheter was discontinued. Solu-Medrol was changed to prednisone 30 mg daily. Cardiology recommended outpatient ischemic evaluation. Labs showed WBC 16.3, hemoglobin 11.9, platelets 308, sodium 137, potassium 4.7, chloride 105, bicarb 27, BUN 28, creatinine 0.51 and glucose 223. No new imaging. Prognosis is guarded. Will continue to follow. Progress note dated July 30, 2024. Patient was seen in the ICU today. She is out of the bed, on chair beside the bed. She states that her breathing is better, but still complains of coughing that keeps her up at night to have causes her to have chest pain. She is saturating at 95% on room air. She has been given benzonatate 200 mg 3 times daily as needed for the cough. She also mentions that MiraLAX is not helping. She continues to be on Ventolin, prednisone 30 mg daily, and diazepam and trazodone 10 mg was added yesterday. She is awaiting bed on 3 S. Will be moved out of the ICU when a bed is available. No new labs or imaging to be reviewed and her last glucose is 110. Objective - Vital Signs Vital signs: Vital Signs Temp 98.7 F 07/30/24 04:00 Pulse 76 07/30/24 04:00 Resp 24 07/30/24 04:00 BP 103/66 07/30/24 04:00 Pulse Ox 95 07/30/24 04:00 FiO2 4 07/28/24 20:00 Intake & Output 07/29/24 07/30/24 07/30/24 18:59 06:59 18:59 Intake Total 92 Output Total 320 300 Balance -228 -300 Weight 77.6 kg Intake: IV 92 Pressure bags 12 Sodium Chloride 0.9% 1, 80 000 ml @ 20 mls/hr IV . Q24H [facility] Rx#:[id number] Output: Urine 320 300 Other: Voiding Method Toilet Toilet # Voids 1 ABP, PAP, CO, CI - Last Documented Arterial Blood Pressure 138/71 - Exam GENERAL EXAM: Awake and alert, not in acute distress HEAD: Normocephalic. EYES: Normal reaction of pupils, equal size. NOSE: Clear with pink turbinates. THROAT: No erythema or exudates. NECK: No masses, no JVD. CHEST: No chest wall deformity. LUNGS: Diminished bilaterally CVS: S1 and S2 normal ABDOMEN: No hepatosplenomegaly, normal bowel sounds, no guarding or rigidity. SKIN: No rashes CENTRAL NERVOUS SYSTEM: Alert and oriented EXTREMITIES: No clubbing edema or cyanosis - Labs CBC & Chem 7: 07/29/24 05:37 07/29/24 05:33 Labs: Abnormal Lab Results - Last 24 Hours (Table) 07/29/24 07/29/24 07/29/24 Range/Units 11:24 11:26 16:18 POC Glucose (mg/dL) 242 H 245 H 176 H (70-110) mg/dL 07/29/24 Range/Units 20:20 POC Glucose (mg/dL) 200 H (70-110) mg/dL Assessment and Plan Assessment: Acute hypoxic respiratory failure secondary to cardiac arrest Covid 19 pneumonia Underlying COPD Hyperglycemia Acute systolic congestive heart failure Chronic ongoing tobacco dependence History of bipolar disorder History of fibromyalgia Generalized anxiety disorder Plan: Patient to be transferred to [facility] with telemetry when bed is available Benzonatate 200mg PO TID PRN added for cough Extubated on 07/28/24. Saline flush BID Continue prednisone 30mg daily Continue albuterol inhaler 2 puffs 4 times daily as needed Aspirin 81 mg, atorvastatin 40 mg daily Quetiapine 300 mg at bedtime Continue diazepam Started on trazodone 100 mg p.o. at bedtime GI prophylaxis: Pantoprazole 40 mg IVP daily DVT prophylaxis: Enoxaparin 40 mg SQ daily Diet : Heart Healthy diet Will continue to follow, prognosis is guarded Critical care time is 20 minutes Time with Patient: Less than 30
--- NOTE | 2024-07-30 10:04 | PN ---
PROGRESS NOTE DATE OF SERVICE: 07/28/2024 CHIEF COMPLAINT: Status post cardiorespiratory arrest. HISTORY OF PRESENT ILLNESS: This lady is doing a bit better and is becoming more awake and alert. Efforts to extubate her continue. PHYSICAL EXAMINATION: VITAL SIGNS: Blood pressure is normal. CHEST: Breath sounds are heard bilaterally. Perfusion is excellent. IMPRESSION: 1. Status post cardiorespiratory arrest. 2. Bronchial pneumonia. 3. COVID. 4. Chronic obstructive pulmonary disease. 5. Congestive heart congestive. PLAN: Continue to follow with Intensive Medicine with hopes that she can be extubated today or tomorrow. MMODL / IJN: [id number] /
--- NOTE | 2024-07-30 10:28 | PN ---
PROGRESS NOTE DATE OF SERVICE: 07/29/2024 CHIEF COMPLAINT: Cardiorespiratory arrest. HISTORY OF PRESENT ILLNESS: This lady is extubated now. She is complaining a lot of low back pain. She seems a little bit more lethargic than normal. PHYSICAL EXAMINATION: VITAL SIGNS: Normal. HEAD, EARS, EYES, NOSE, MOUTH AND THROAT: Normal. CHEST: Clear. CARDIAC: Normal. IMPRESSION: 1. Status post cardiorespiratory arrest. 2. Pneumonitis. 3. COVID. 4. Congestive heart failure. 5. Chronic obstructive pulmonary disease. PLAN: Progress activity and start PT and OT. Her analgesics will be changed. MMODL / IJN: [id number] /
[2024-07-30] MEDS: BENZONATATE 100 MG CAP PO PRN (10:50)
[2024-07-30 11:31] LABS: Glucose,Whole Blood 136 mg/dL (70-110)
[2024-07-30 13:06] VITALS: BP 107/66; PULSE 88; RESP 16; TEMP 98.1
--- NOTE | 2024-07-30 14:11 | P.PN ---
Subjective Progress Note Date: 07/30/24 This is Kermit Peoples NP, I'm dictating on behalf of Dr. Mejia's H&P and A&P. Patient was interviewed and examined. Patient is a pleasant 54-year-old female who presented to the the hospital with COVID-19 infection, bronchitis and fever. Patient had a cardiopulmonary arrest with apparent asystole, and ended up in the ICU. She was intubated for a number of days. She is currently extubated and seen sitting in the chair. She is still slightly confused, but not reporting any chest pain, shortness of breath, or heart palpitations. Patient is hoping she can go home today. GENERAL: Well-appearing, well-nourished and in no acute distress. NECK: Supple without JVD or thyromegaly. LUNGS: Breath sounds clear to auscultation bilaterally. Respiration equal and unlabored. No wheezes, rales or rhonchi. HEART: Regular rate and rhythm without murmurs, rubs or gallops. S1 and S2 heard. EXTREMITIES: Normal range of motion, no edema. No clubbing or cyanosis. Peripheral pulses intact and strong. VITALS: Temp 97.4, pulse 79, respirations 18, blood pressure 96/63, O2 saturation 90% on room air TELEMETRY: Sinus mechanism LABS: White count 16.3, hemoglobin 11.9, platelets 308, sodium 137, potassium 4.7, BUN 28, creatinine 0.51, hemoglobin A1c 6.5 IMPRESSION: 1. Cardiopulmonary arrest with asystole 2. Acute hypoxic respiratory failure 3. Heart failure of unknown etiology 4. Low blood pressure 5. COPD 6. Evidence of myocardial injury 7. Mild cardiomyopathy EF 55 to 60% PLAN: No further recommendations from a cardiology standpoint. From our standpoint the patient may be discharged. Recommend patient have an outpatient cath at a later date. Patient should follow-up with cardiology 1 week after discharge. Thank you for allowing us to participate in the care of this patient. Objective - Vital Signs Vital signs: Vital Signs Temp 98.1 F 07/30/24 12:00 Pulse 88 07/30/24 12:00 Resp 16 07/30/24 12:00 BP 107/66 07/30/24 12:00 Pulse Ox 91 L 07/30/24 12:00 FiO2 4 07/28/24 20:00 Intake & Output 07/29/24 07/30/24 07/30/24 18:59 06:59 18:59 Intake Total 92 Output Total 320 300 0 Balance -228 -300 0 Weight 77.6 kg Intake: IV 92 Pressure bags 12 Sodium Chloride 0.9% 1, 80 000 ml @ 20 mls/hr IV . Q24H [facility] Rx#:[id number] Output: Urine 320 300 0 Other: Voiding Method Toilet Toilet Toilet # Voids 1 1 # Bowel Movements 1 ABP, PAP, CO, CI - Last Documented Arterial Blood Pressure 138/71 - Labs CBC & Chem 7: 07/29/24 05:37 07/29/24 05:33 Labs: Abnormal Lab Results - Last 24 Hours (Table) 07/29/24 07/29/24 07/30/24 Range/Units 16:18 20:20 11:30 POC Glucose (mg/dL) 176 H 200 H 136 H (70-110) mg/dL
--- NOTE | 2024-07-30 16:28 | DS ---
DISCHARGE SUMMARY CHIEF COMPLAINT: Cough, congestion, fever, and shortness of breath. HISTORY OF PRESENT ILLNESS AND PHYSICAL EXAMINATION: Details of this lady's history and physical can be found in the initial workup. COURSE IN THE HOSPITAL: After admission, she was placed on bedrest. She was identified as having COVID. She was placed on IV fluids and inhalation therapy with metered dose inhalers. She seemed to do fairly well for a day or 2 and then she became progressively more short of breath and more congested. Was also knows that she was becoming quite edematous. She was started on diuretic and her blood pressure was also slightly elevated and this was addressed. She was referred to Pulmonology. Then, she had a cardiorespiratory arrest and was moved to the intensive care unit and placed on a ventilator. There, her case was managed by Intensive Medicine and Cardiology. She was found to have a markedly elevated BNP and it was believed that this was a sign of congestive heart failure. She was on the ventilator for an extended period of time and developed significant pneumonitis. This slowly began to improve, however, and gradually she became less dependent on the ventilator and started to assist. Finally, she was able to be extubated. Once this was done, she had no residual neurologic deficits, chest pain, chills, fever, etc. She was stable enough that it was felt that she could be discharged on the and she will go home with family and will be followed up shortly in the office. Because of her extended period of time on the ventilator in the ICU, she was unable to ambulate safely and securely and she will be discharged with a walker. She will also be set up for home care. FINAL DIAGNOSES: 1. COVID pneumonia. 2. Bronchitis. 3. Chronic obstructive pulmonary disease. 4. Acute congestive heart failure. 5. History of chronic obstructive pulmonary disease. OPERATIONS: None. CONSULTATIONS: Cardiology and Intensive Medicine. She is improved. MMODL / IJN: [id number] /
== END 2024-07-30 16:00 | disposition home health service (06) | DRG 207 ==
LOC: EC 21:32 → 4SSUR 07-18 01:23 → 2SICU 07-21 20:36
PROVIDERS: ADMIT Family Medicine; ATTEND Family Medicine
PROC: 5A1955Z Respiratory Ventilation, Greater than 96 Consecutive Hours (ICD-10-PCS; principal; 2024-07-21)
PROC: 0BH17EZ Insertion of Endotracheal Airway into Trachea, Via Natural or Artificial Opening (ICD-10-PCS; 2024-07-21)
PROC: 5A12012 Performance of Cardiac Output, Single, Manual (ICD-10-PCS; 2024-07-21)
PROC: 3E0333Z Introduction of Anti-inflammatory into Peripheral Vein, Percutaneous Approach (ICD-10-PCS; 2024-07-22)
DX: U07.1 COVID-19 (principal); I50.21 Acute systolic (congestive) heart failure; J12.82 Pneumonia due to coronavirus disease 2019; J96.01 Acute respiratory failure with hypoxia; I49.01 Ventricular fibrillation; I46.2 Cardiac arrest due to underlying cardiac condition; E87.3 Alkalosis; I42.9 Cardiomyopathy, unspecified; I5A Non-ischemic myocardial injury (non-traumatic); J44.0 Chronic obstructive pulmonary disease with (acute) lower respiratory infection; F17.210 Nicotine dependence, cigarettes, uncomplicated; F31.9 Bipolar disorder, unspecified; F41.1 Generalized anxiety disorder; I11.0 Hypertensive heart disease with heart failure; I25.10 Atherosclerotic heart disease of native coronary artery without angina pectoris; M79.7 Fibromyalgia; I48.91 Unspecified atrial fibrillation; Z79.82 Long term (current) use of aspirin; Z79.899 Other long term (current) drug therapy
CPT/HCPCS: 36415; 36600; 71045; 71046; 71275; 80048; 80053; 81001; 82272; 82533; 82805; 83036; 83605; 83735; 83880; 84100; 84132; 84145; 84439; 84443; 84484; 85025; 85027; 85379; 85610; 85730; 87040; 87070; 87205; 87636; 92950; 93005; 93306; 93308; 94002; 94003; 94640; 94760; 96361; 96365; 96367; 96375; 96376; 99291